=== PATIENT | female | born 1950 ===

== ENCOUNTER 2024-10-17 11:19 | Outpatient (AMB) | payer MEDICARE, SELFPAY ==
--- OUTSIDE RECORDS SUMMARY | 2024-10-17 13:02 | XMS_ITS | Clinical Summary ---
Author Organization [address] [facility] Address [address] [facility] [place] [address] Phone Care Team Providers Care Land Leveler Name Role Phone Jong Zarco MD Primary Care Provider [phone] Allergies Active Allergy Reactions Criticality Noted Date Comments Fluorescein 05/06/2024 Iodine Anaphylaxis High 07/15/2024 Other 07/27/2016 Seasonal, tree pollen, grass pollen Oxycodone 01/11/2024 Shellfish Derived 07/27/2016 Medications magnesium oxide 400 mg magnesium capsule Take by mouth 1 (one) time each day at the same time. Active BIOTIN ORAL Take 10 mg by mouth 1 (one) time each day. Active omega 9-qzf-cig-fish oil (Fish OiL) 1,000 (120-180) mg capsule Take 1 capsule (1,000 mg total) by mouth 3 (three) times a day. Active levocetirizine (XYZAL) 5 mg tablet Take 1 tablet (5 mg total) by mouth 1 (one) time each day in the evening. Active multivit-min/ir on/FA/vit K/lut (MULTIVITAMIN WOMEN 50 PLUS ORAL) Take by mouth 1 (one) time each day. Active ascorbic acid (VITAMIN C) 500 mg CR capsule Take 1 capsule (500 mg total) by mouth 1 (one) time each day. Active thiamine 100 mg tablet Take 1 tablet (100 mg total) by mouth 1 (one) time each day. Active cholecalciferol (VITAMIN D-3) 10 mcg (400 unit) tablet Take 1 tablet (400 Units total) by mouth 2 (two) times a day. Active collagen-biotin -ascorbic acid (Collagen 1500 Plus C) 500 mg-800 mcg- 50 mg capsule Take by mouth. Active Encounters Date Type Department Care Team Description 09/09/2024 1:39 PM EDT - 09/09/2024 11:59 PM EDT Hospital Encounter [facility] Neurodiagnostic [address] [place] [address] Finger numbness Discharge Disposition: Home or Self Care 09/03/2024 2:47 PM EDT - 09/03/2024 11:59 PM EDT Hospital Encounter [facility] Ultrasound [address] [place] [address] Localized edema Discharge Disposition: Home or Self Care 08/15/2024 12:37 PM EDT - 08/15/2024 11:59 PM EDT Hospital Encounter [facility] Bone Density [address] [place] [address] Age-related osteoporosis without current pathological fracture Discharge Disposition: Home or Self Care from Last 3 Months Surgical History Surgery Date Site/Laterality Comments SECTION PROCEDURE: HISTORICAL DELIVERY; COMMENT: 2 OTHER SURGICAL HISTORY 1991 PROCEDURE: HISTORY OTHER; COMMENT: abdominal tumor removed, fibrous myolipoma APPENDECTOMY PROCEDURE: HISTORICAL APPENDECTOMY; COMMENT: age 13, perforated OTHER SURGICAL HISTORY PROCEDURE: HISTORY OTHER; COMMENT: benign skin lesions removed SECTION PROCEDURE: HI DELIVERY ONLY; COMMENT: x 2 APPENDECTOMY PROCEDURE: HI APPENDECTOMY Family History Medical History Relation Name Comments Diabetes Brother Coronary artery disease Other 1 M,F Hypertension Other 2 Relation Name Status Comments Brother Father Alive cad Mother (Age 68) malnutriti on due to vomiting, IBS,intestinal blockage,cad Other 1 Other 2 Social History Tobacco Use Types Packs/Day Years Used Date Smoking Tobacco: Never Smokeless Tobacco: Never Alcohol Use Standard Drinks/Week Comments No 0 (1 standard drink = 0.6 oz pur e alcohol) Comments Unknown Sex and Gender Information Value Date Recorded Sex Assigned at Female 08/29/2024 11:10 AM EDT Legal Sex Female 4:05 AM EST Gender Identity Female 08/29/2024 11:10 AM EDT Sexual Orientation Straight 08/29/2024 11 :10 AM EDT Obstetrics History Last Filed Vital Signs Vital Sign Reading Time Taken Comments Blood Pressure 110/74 11/17/2022 2:21 PM EDT Sit ting L Arm Pulse - - Temperature - - Respiratory Rate - - Oxygen Saturation - - Inhaled Oxygen Concentration - - Weight 62.1 kg (137 lb) 03/15/2023 3:10 PM EST Height 154.9 cm (5' 1 ) 03/15/2023 3:10 PM EST Body Mass Index 25.89 03/15/2023 3:10 PM EST Plan of Treatment Upcoming Encounters Date Type Department Care Team (Late st Contact Info) Description 11/06/2024 10:30 AM EDT Appointment [facility] [address] [place] [address] 12/04/2024 1:30 PM EDT Office Visit Vascular Surgery - [place] [address] [facility] [address] [address] [place] [address] Macrina Nagy PA [address] [facility] [place] [address] Health Maintenance Due Date Last Done Comments COVID-19 Vaccine (#1) 12/12/1955 DTaP,Tdap,and Td Vaccines (1 - Tdap) 1969 Pneumococcal Vaccine: 50+ Years (1 of 2 - PCV) 1969 Zoster Vaccines (1 of 2) 10/06/2011 08/11/2011 Colorectal Cancer Screening: Colonoscopy 01/30/2022 Falls Risk Assessment 01/30/2022 Hepatitis C Screening 01/30/2022 Medicare Annual Wellness Visit 01/30/2022 Social Influencers of Health Screening 01/30/2022 Breast Cancer Screening 02/03/2024 02/03/20, 01/28/2021, 01/19/2020, Additional history exists Depression Screening 02/28/2024 Influenza Vaccine (#1) 2024 11/19/2007 Hypertension/CHF/CAD Annual BMP Blood Test 05/16/2025 05/16/2024 RSV Immunization Adult Patients (1 - 1-dose 75+ series) 2025 Cholesterol Screening (Lipid Panel) 05/16/2029 05/16/2024 Osteoporosis Screening (Bone Density Screening) 08/15/2034 08/15/2024, 02/03/2022, 10/10/2018 HIB Vaccines Aged Out No longer eligi ble based on patient's age to complete this topic HPV Vaccines Aged Out No longer eligi ble based on patient's age to complete this topic Hepatitis A Vaccines Aged Out No long er eligible based on patient's age to complete this topic Hepatitis B Vaccines Aged Out No long er eligible based on patient's age to complete this topic IPV Vaccines Aged Out No longer eligi ble based on patient's age to complete this topic MMR Vaccines Aged Out No longer eligi ble based on patient's age to complete this topic Meningococcal ACWY Vaccine Aged Out N o longer eligible based on patient's age to complete this topic Meningococcal B Vaccine Aged Out No l onger eligible based on patient's age to complete this topic RSV Immunization Patients Under 20 months Aged Out No longer eligible based on patient's age to complete this topic Varicella Vaccines Aged Out No longer eligible based on patient's age to complete this topic Procedures Procedure Name Priority Date/Time Associated Diagnosis Comments EMG 1 LIMB Routine 09/09/2024 1:44 PM EDT Finger numbness US HEAD NECK SOFT TISSUE Routine 09/03/2024 3:09 PM EDT Localized edema VON WILLEBRAND FACTOR ACTIVITY Routine 08/29/2024 9:30 AM EDT Genetic testing FACTOR V LEIDEN Routine 08/29/2024 9:30 AM EDT Genetic testing BD BONE DENSITY DXA AXIAL SKELETON Routine 08/15/2024 1:20 PM EDT Age-related osteoporosis without current pathological fracture COMPREHENSIVE METABOLIC PANEL Routine 05/16/2024 9:20 AM EDT Routine general medical examination at a health care facility LIPID PANEL WITH REFLEX TO DIRECT LDL Routine 05/16/2024 9:20 AM EDT Routine general medical examination at a health care facility DAE SCREENING DIGITAL Routine 02/02/2022 7:17 PM EST Encounter for screening mammogram for malignant neoplasm of breast from Last 3 Months or Most Recently Relevant to Health Maintenance Results * EMG one limb (09/09/2024 1:44 PM EDT) Narrative Panfilo Napoles MD - 09/09/2024 2:29 PM EDT Images from the original result were not included. Neurodiagnostic Lab [address] [place] [address] Electromyograph Report Date of service: 09/09/24 Patient Name: Petty Hair Date of : 1950 Age: 73 y.o. Gender: female Procedure Order: EMG one limb Ordering Provider: ALEX Jerome Reason for Exam: There are no answered order specific questions. Diagnosis listed on Order: Finger numbness Please see scanned report for testing details and results. Procedure Note Panfilo Napoles MD - 09/09/2024 Images from the original note were not included. Neurodiagnostic Lab [address] [place] [address] Electromyograph Report Date of service: 09/09/24 Patient Name: Petty Hair Date of : 1950 Age: 73 y.o. Gender: female Procedure Order: EMG one limb Ordering Provider: ALEX Jerome Reason for Exam: There are no answered order specific questions. Diagnosis listed on Order: Finger numbness Please see scanned report for testing details and results. EDT us Sheba JOHNSON NEUROLOGY ORDERABLES Final Resul t * US Head Neck Soft Tissue (09/03/2024 3:09 PM EDT) Anatomical Region Laterality Modality Head and Neck Ultrasound 09/06/2024 7:10 AM EDT Impressions 09/06/2024 7:16 AM EDT No obvious asymmetry of the submandibular glands. No definite ductal dilation or calcification. There is an oval hypoechoic structure abutting the posterior aspect of the left submandibular gland. Whether this represents a small mass within the gland or an adjacent lymph node is uncertain. This may be an incidental finding. The patient should be managed on the basis of the physical exam and history. No suspicious mass posterior to the left submandibular gland is demonstrated on remote CT. Follow-up in 3-6 months may be helpful -------- FINAL REPORT -------- Dictated By: Arnold Butterfield Dictated Date: 09/06/2024 07:10 ET Assigned Physician: Arnold Butterfield Reviewed and Electronically Signed By: Arnold Butterfield Signed Date: 09/06/2024 07:16 ET Workstation ID: [id number] Transcribed By: Self Edit Transcribed Date: 09/06/2024 07:10 ET Narrative 09/06/2024 7:16 AM EDT EXAMINATION: US , SOFT TISSUES NECK CLINICAL INFORMATION: Submandibular gland swelling COMPARISON: Portions of previous CT performed without contrast 02/11/07 TECHNIQUE: High-frequency linear transducer examination with attention to the area of clinical concern The examination targeted the region of the submandibular glands. The right side was examined. The left submandibular gland was examined for comparison purposes. FINDINGS: QUALITY: Adequate The right submandibular gland has an oval shape and is slightly heterogeneous. There is internal color signal. There is no calculus. No fluid collection. No suspicious mass in the right mandibular gland. The left submandibular gland has a smooth contour with an oval shape and slightly heterogeneous echotexture similar to the right side. There is no shadowing calculus or fluid collection. There is internal color signal. The color signal appear symmetric There is a homogeneous hypoechoic oval mass arising within or abutting the posterior aspect of the left submandibular gland. 09/03/24-0.8 x 0.4 x 0.7 cm Procedure Note Arnold Butterfield MD - 09/06/2024 EXAMINATION: US , SOFT TISSUES NECK CLINICAL INFORMATION: Submandibular gland swelling COMPARISON: Portions of previous CT performed without contrast 02/11/07 TECHNIQUE: High-frequency linear transducer examination with attention to the area ofclinical concern The examination targeted the region of the submandibular glands. The rightside was examined. The left submandibular gland was examined forcomparison purposes. FINDINGS: QUALITY: Adequate The right submandibular gland has an oval shape and is slightlyheterogeneous. There is internal color signal. There is no calculus. Nofluid collection. No suspicious mass in the right mandibular gland. The left submandibular gland has a smooth contour with an oval shape andslightly heterogeneous echotexture similar to the right side. There is noshadowing calculus or fluid collection. There is internal color signal. The color signal appear symmetric There is a homogeneous hypoechoic oval mass arising within or abutting theposterior aspect of the left submandibular gland. 09/03/24-0.8 x 0.4 x 0.7 cm IMPRESSION: No obvious asymmetry of the submandibular glands. No definite ductal dilation or calcification. There is an oval hypoechoic structure abutting the posterior aspect of theleft submandibular gland. Whether this represents a small mass within thegland or an adjacent lymph node is uncertain. This may be an incidentalfinding. The patient should be managed on the basis of the physical exam andhistory. No suspicious mass posterior to the left submandibular gland isdemonstrated on remote CT. Follow-up in 3-6 months may be helpful -------- FINAL REPORT -------- Dictated By: Arnold Butterfield Dictated Date: 09/06/2024 07:10 ET Assigned Physician: Arnold Butterfield Reviewed and Electronically Signed By: Aronld Butterfield Signed Date: 09/06/2024 07:16 ET Workstation ID: [id number] Transcribed By: Self Edit Transcribed Date: 09/06/2024 07:10 ET us Sheba JOHNSON IMEdin US PROCEDURES Final Result * Factor V leiden (08/29/2024 9:30 AM EDT) Factor V Leiden Mutation Negative 09/02/2024 3:11 PM EDT [facility] Comment: The pathogenic F5 Leiden variant (c.1691G>A) was NOT DETECTED. 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 This test does not rule out other mutations that may contribute to venous thrombosis. This test was performed using the marcelino(R) Factor V Test (Kody) - an in vitro diagnostic device that uses real-time quantitative Polymerase Chain Reaction (qPCR) for the detection and genotyping of the human factor V (F5) gene. The test detects the presence of the wild type (WT) F5 gene and the pathogenic c.1691G>A variant (also known as the F5 Leiden variant) in genomic DNA isolated from whole blood specimens as an aid in diagnosing patients with suspected thrombophilia. The marcelino(R) Factor V Test and the marcelino z 480 analyzer are used together for automated amplification and detection. The limit of detection for this test is 0.1 ng/uL of genomic DNA (2.5 ng/PCR reaction). Test performed at [facility], [address] [place] [address] Michelle Cook MD, PhD - Art Education Professor Blood Venous blood specimen / Unknown Venipuncture / Unknown 08/29/2024 9:30 AM EDT 08/29/2024 9:30 AM EDT Sheba Hurt [facility] MOLECULAR DIAGNOSTICS ORDERA BLES Final Result [facility] [address] [place] [address] * Von Willebrand factor activity (08/29/2024 9:30 AM EDT) [facility] von Willebrand Factor Activity Percent 170 51 - 215 % 09/03/2024 8:27 PM EDT [facility] Comment: REFERENCE INTERVAL: von Willebrand Factor, Activity (RCF) Access complete set of age- and/or gender-specific reference intervals for this test in the [facility] Online Laboratory Test Directory ([employer]). Performed By: [facility] [address] [place] [id number] Geospatial Analyst: Andrez Mike MD, PhD CLIA Number: [id number] Blood Venous blood specimen / Unknown Venipuncture / Unknown 08/29/2024 9:30 AM EDT 08/29/2024 9:30 AM EDT us Sheba JOHNSON LAB BLOOD ORDERABLES Final Resul t [place] [address] * BD Bone Density DXA Axial Skeleton (08/15/2024 1:20 PM EDT) Anatomical Region Laterality Modality Wrist, Hip, L-spine Bone Densito metry 08/16/2024 8:28 AM EDT Impressions 08/16/2024 8:29 AM EDT 1. Osteoporosis. There has been a decrease of 6.1% in bone mineral density in the lumbar spine since the prior examination of 02/02/2022. There has been a decrease of 14.2% in bone mineral density in the right femur and a decrease of 19.1% in bone mineral density in the left femur. 2. FRAX analysis yields a 10-year probability of major osteoporotic fracture of 30.0% and a 10-year probability of hip fracture of 10.8%. Code 02117 -------- FINAL REPORT -------- Dictated By: Nicolas Owusu Dictated Date: 08/16/2024 08:28 ET Assigned Physician: Nicolas wOusu Reviewed and Electronically Signed By: Nicolas Owusu Signed Date: 08/16/2024 08:29 ET Workstation ID: [id number] Transcribed By: Self Edit Transcribed Date: 08/16/2024 08:28 ET Narrative 08/16/2024 8:29 AM EDT HISTORY: The patient is a 73-year-old postmenopausal female with clinical concern for metabolic bone disease. FINDINGS: Dual energy x-ray absorptiometry of the lumbar spine and femurs is performed. The mean bone mineral density at L1-L4 (with the exclusion of L3) is 1.011 gm/cm2 which is 86% of that of young normals and 106% of that of age matched controls. This yields a T-score of -1.3 and a Z-score of 0.5 which is diagnostic of osteopenia. The mean bone mineral density of the femurs bilaterally is 0.660 gm/cm2 which is 66% of that of young normals and 83% of that of age matched controls. This yields a T-score of -2.8 and a Z-score of -1.1 which is diagnostic of osteoporosis. The T-score of the right femoral neck is -3.0 and that of the left femoral neck is -2.7 which is diagnostic of osteoporosis. Procedure Note Nicolas Owusu MD - 08/16/2024 HISTORY: The patient is a 73-year-old postmenopausal female with clinicalconcern for metabolic bone disease. FINDINGS: Dual energy x-ray absorptiometry of the lumbar spine and femursis performed. The mean bone mineral density at L1-L4 (with the exclusionof L3) is 1.011 gm/cm2 which is 86% of that of young normals and 106% ofthat of age matched controls. This yields a T-score of -1.3 and a Z-scoreof 0.5 which is diagnostic of osteopenia. The mean bone mineral density of the femurs bilaterally is 0.660 gm/xz6eqlyr is 66% of that of young normals and 83% of that of age matchedcontrols. This yields a T-score of -2.8 and a Z-score of -1.1 which isdiagnostic of osteoporosis. The T- score of the right femoral neck is -3.0and that of the left femoral neck is -2.7 which is diagnostic ofosteoporosis. IMPRESSION: 1. Osteoporosis. There has been a decrease of 6.1% in bone mineraldensity in the lumbar spine since the prior examination of 02/02/2022.There has been a decrease of 14.2% in bone mineral density in the rightfemur and a decrease of 19.1% in bone mineral density in the left femur. 2. FRAX analysis yields a 10-year probability of major osteoporoticfracture of 30.0% and a 10-year probability of hip fracture of 10.8%. Code 16932 -------- FINAL REPORT -------- Dictated By: Nicolas Owusu Dictated Date: 08/16/2024 08:28 ET Assigned Physician: Nicolas Owusu Reviewed and Electronically Signed By: Nicolas Owusu Signed Date: 08/16/2024 08:29 ET Workstation ID: [id number] Transcribed By: Self Edit Transcribed Date: 08/16/2024 08:28 ET Sheba JOHNSON IMG DXA PROCEDURES Final Result * (ABNORMAL) Lipid panel with reflex to direct LDL (05/16/2024 9:20 AM EDT) Cholesterol 223(H) 0 - 200 mg/dL LAB CHEMISTRY METHOD 05/16/2024 2:19 PM EDT [facility] Triglycerides 58 0 - 150 mg/dL LAB CHEMISTRY METHOD 05/16/2024 2:19 PM EDT [facility] HDL 93 >=40 mg/dL LAB CHEMISTRY METHOD 05/16/2024 2:19 PM EDT [facility] LDL Calculated 118(H) 0 - 100 mg/dL LAB CHEMISTRY METHOD 05/16/2024 2:19 PM EDT [facility] VLDL Cholesterol Fredrick 11.6 mg/dL LAB CHEMISTRY METHOD 05/16/2024 2:19 PM EDT [facility] Non HDL Chol. (LDL+VLDL) 130 <145 mg/dL LAB CHEMISTRY METHOD 05/16/2024 2:19 PM EDT [facility] Chol/HDL Ratio 2.4 0.0 - 4.4 LAB CHEMISTRY METHOD 05/16/2024 2:19 PM EDT [facility] Blood Venous blood specimen / Unknown Venipuncture / Unknown 05/16/2024 9:20 AM EDT 05/16/2024 9:20 AM EDT us Jong Zarco MD LAB BLOOD ORDERABLES Final Resul t [facility] [address] [place] [address], * Comprehensive metabolic panel (05/16/2024 9:20 AM EDT) Sodium 138 133 - 145 mmol/L LAB CHEMISTRY METHOD 05/16/2024 2:14 PM [facility] Potassium 4.6 3.5 - 5.5 mmol/L LAB CHEMISTRY METHOD 05/16/2024 2:14 PM [facility] Chloride 104 96 - 110 mmol/L LAB CHEMISTRY METHOD 05/16/2024 2:14 PM [facility] CO2 28 21 - 32 mmol/L LAB CHEMISTRY METHOD 05/16/2024 2:14 PM [facility] Anion Gap 6 3 - 11 LAB CHEMISTRY METHOD 05/16/2024 2:14 PM [facility] Glucose 99 70 - 100 mg/dL LAB CHEMISTRY METHOD 05/16/2024 2:14 PM [facility] BUN 16 5 - 25 mg/dL LAB CHEMISTRY METHOD 05/16/2024 2:14 PM [facility] Creatinine 0.56 0.50 - 1.10 mg/dL LAB CHEMISTRY METHOD 05/16/2024 2:14 PM [facility] eGFR 97 >=60 mL/min/1. 73m2 LAB CHEMISTRY METHOD 05/16/2024 2:14 PM [facility] Comment:Calculation based on the Chronic Kidney Disease Epidemiology Collaboration (CKD-EPI) equation refit without adjustment for race. BUN/Creatinine Ratio 28.6 LAB CHEMISTRY METHOD 05/16/2024 2:14 PM [facility] Calcium 9.6 8.5 - 10.5 mg/dL LAB CHEMISTRY METHOD 05/16/2024 2:14 PM [facility] AST (SGOT) 14 10 - 42 unit/L LAB CHEMISTRY METHOD 05/16/2024 2:14 PM [facility] ALT (SGPT) 18 10 - 60 unit/L LAB CHEMISTRY METHOD 05/16/2024 2:14 PM EDT [facility] Alkaline Phosphatase 82 42 - 121 unit/L LAB CHEMISTRY METHOD 05/16/2024 2:14 PM EDT [facility] Total Protein 7.3 6.0 - 8.0 g/dL LAB CHEMISTRY METHOD 05/16/2024 2:14 PM EDT [facility] Albumin 3.9 3.2 - 5.0 g/dL LAB CHEMISTRY METHOD 05/16/2024 2:14 PM EDT [facility] Total Bilirubin 0.5 0.0 - 1.4 mg/dL LAB CHEMISTRY METHOD 05/16/2024 2:14 PM EDT [facility] Blood Venous blood specimen / Unknown Venipuncture / Unknown 05/16/2024 9:20 AM EDT 05/16/2024 9:20 AM EDT us Jong Zarco MD LAB BLOOD ORDERABLES Final Resul t [facility] [address] [place] [address], * DAE SCREENING DIGITAL (02/02/2022 7:17 PM EST) Anatomical Region Laterality Modality Mammography 02/02/2022 11:1 8 AM EST Narrative 02/02/2022 7:17 PM EST [facility] Diagnostic Imaging Department [address] [place] [address] Patient: LAXMIPETTY D.O.B./Age/Sex: 1950 - 71 - F Unit#: [id number] Location/Status: SPDIMAM/REG CLI Mnem[facility] Physician: ANIL CRAIN MD Dae Screening Digital - 02/02/221153 History: Bilateral breast cancer screening. Technique: Bilateral digital mammography. Conventional CC and MLO projections with tomosynthesis MLO views and computer-aided detection Comparison: [facility] and outside mammography 01/28/2021, dating back to 01/05/2010. Findings: Breast tissue is mostly fatty replaced (category A density) (as calculated by Network Intelligencepara software). There is no suspicious group of microcalcification, no suspicious mass, architectural distortion or suspicious change in breast tissue density. Impression: No evidence of malignancy. BIRADS category 1, negative examination, 3341F [id number], [id number] Note: Patient information entered into a reminder system with a target due date for the next mammogram; PQRI II 7031Q Dictating Physician: CHICHO SALGUERO MD Electronically Signed by: CHICHO SALGUERO MD Dic Date/Time: 02/02/221913 Sign date/Time: 02/02/221916 Procedure Note Chicho Salguero MD - 03/31/2023 [facility] Diagnostic Imaging Department [address] [place] [id number] Patient: PETTY HAIR Hannah /Age/Sex: 1950 - 71 - F Unit#: [id number] Location/Status: SPDIMAM/REG CLI Mnemonic/Ordering Site: [facility] Ordering Physician: ANIL CRAIN MD Dae Screening Digital - 02/02/22 - 1154 History: Bilateral breast cancer screening. Technique: Bilateral digital mammography. Conventional CC and MLOprojections with tomosynthesis MLO views and computer-aided detection Comparison: [facility] and outside mammography 01/28/2021,dating back to 01/05/2010. Findings: Breast tissue is mostly fatty replaced (category A density) (ascalculated by [employer] software). There is no suspicious group of microcalcification, no suspicious mass, architectural distortion or suspicious change in breast tissue density. Impression: No evidence of malignancy. BIRADS category 1, negative examination, 3341F [id number], [id number] Note: Patient information entered into a reminder system with a targetdue date for the next mammogram; PQRI II 7025F Dictating Physician: CHICHO SALGUERO MD Electronically Signed by: CHICHO SALGUERO MD Dic Date/Time: 02/02/221913 Sign date/Time: 02/02/221916 us Anil Crain MD IMG BI PROCEDURES Final Result from Last 3 Months or Most Recently Relevant to Health Maintenance Insurance [employer] Care Teams Land Leveler Relationship Specialty Start Date End Date Jong Zarco MD [address] [place] [address] PCP - General 11/11/22
--- OUTSIDE RECORDS SUMMARY | 2024-10-17 13:02 | XMS_ITS ---
Author Name [facility] Organization Unknown Encounters Encounter Type Encounter Reason Primary Diagnosis Location Date Ambulatory [facility] 12/26/2023 Care Team Organization Name Specialty Phone Email Start Date End Da te [facility] 06/22/2024 [facility] GURPREET SILVA Primary Care 09/14/2023 06/12/2024 [facility] Estela Howard MD Primary Care 07/04/2022 06/12/2024
--- OUTSIDE RECORDS SUMMARY | 2024-10-17 13:03 | XMS_ITS | Continuity of Care Document ---
Author Organization [facility] [address] [place] [address] Phone [phone] Care Team Providers Care Shoeblack Name Role Phone Jan Rivera M.D. Care Team Information Re ceiver [phone] Jong Zarco M.D. Care Team Information Windmill Technician [phone] Problems Active Problems Provider Date Hypothyroidism Alfredo Onofre M.D. Onset: Major depressive disorder Alfredo Onofre M.D. Onset: 08/19/2022 Rosacea Alfredo Onofre M.D. Onset: Irritable bowel syndrome Alfredo Onofre M.D. O nset: 08/19/2022 History of malignant neoplasm of thyroid Alfredo rg M.D. Onset: 08/19/2022 Alopecia Alfredo Onofre M.D. Onset: Osteoporosis Alfredo Onofre M.D. Onset: Thyroid nodule Alfredo Onofre M.D. Onset: Non-toxic multinodular goiter Soto Gonzalez Onset: 06/12/2023 Osteopenia Alfredo Onofre M.D. Onset: Social History Type Date Description Comments Sex Female Sex Unknown Tobacco Use Start: Unknown Never Smoked Cigarettes ETOH Use Never used alcohol Allergies and adverse reactions Description No Known Drug Allergies Medications Active Medications SIG Qnty Indications Ordering Provider Date Vitamin [id number] (5000 Ut) Capsules Unknown [id number] Tablets Unknown Vital Signs Date Vital Result Comment 06/12/2024 11:25am BP Systolic 142 mmHg BP Diastolic 88 mmHg Heart Rate 68 /min Height 61 inches 5'1 Weight 144.12 lb BMI (Body Mass Index) 27.2 kg/m2 Results Test Acquired Date Facility Test Result H/L Range N ote TSH With Reflex To FT4 10/18/2022 [facility] TSH With Reflex To FT4 3.84 uIU/mL (0.4-4.2) Medical Devices Description No Information Available Encounters Type Date Location Provider Dx Diagnosis Office Visit 06/12/2024 11:15a Main Office ALEX Bower Z85.850 Personal hist ory of malignant neoplasm of thyroid E04.1 Nontoxic single thyr oid nodule Assessments Date Code Description Provider 06/12/2024 Z85.850 Personal history of malignant neoplasm of thyroid ALEX Bower 06/12/2024 E04.1 Thyroid nodule ALEX Loza Plan of Treatment Future Appointment(s):* 12/16/2024 10:00 am - Mary Zimmerman NP at Main Office 06/12/2024 - ALEX Bower* Z85.850 Personal history of malignant neoplasm of thyroid * E04.1 Thyroid nodule Functional Status Description No Information Available Mental Status Description No Information Available Referrals Refer to Reason for Referral Status Appt Cinda Farrell PA Created [address] [place] [address] [address] [place] [id number] [phone] Alfredo Onofre M.D. Created [address] [place] [address] Drive [address] [place] [id number] [phone]
--- OUTSIDE RECORDS SUMMARY | 2024-10-17 13:03 | XMS_ITS | Patient Health Record ---
Author Organization [facility] Address [address] [place] [address] Care Team Providers Care Construction Supervisor/Carpenter Name Role Phone GURPREET SILVA Primary Care Provider [phone] LEIGHANNCHARLI Unavailable [phone] Allergies Allergen (clinical drug ingredient) Drug/Non Drug Allergy documented on EMR Reaction Allergy Type Onset Date Status grass pollen (uncoded) itchy eyes sneezing runny nose Allergy Active tree polle (uncoded) itchy eyes, sneezing, runny nose Allergy Active Iodine Anaphylactic shock Drug Allergy Active Shellfish (FN) Shellfish-derived Products flushed, hot Drug Allergy Active Results Component Value Reference Range Notes VON WILLEBRAND FACTOR ACTIVI TY Reviewed date:09/04/2024 08:27:33 AM Interpretation: Performing Lab: Notes/Report: von Willebrand Factor Activity Percent 170 51-215 % REFERENCE INTERVAL: von Willebrand Factor, Activity (RCF) Access complete set of age- and/or gender-specific reference intervals for this test in the [facility] Test Directory ([employer]). Performed By: [facility] [address] [place] [id number] Dot Net Architect: Andrez Mike MD, PhD CLIA Number: [id number] FACTOR V LEIDEN Reviewed date:09/05/2024 03:26:59 PM Interpretation: Performing Lab: Notes/Report: Factor V Leiden Mutation Negative The pathogenic F5 Leiden variant (c.1691G>A) was [...] DNA (2.5 ng/PCR reaction). Test performed at [facility], [facility] [place] [address] Michelle Cook MD, PhD - Drink Box Mechanic BD BONE DENSITY DXA AXIAL SK [facility] Reviewed date:08/16/2024 01:14:54 PM Interpretation: Performing Lab: Notes/Report: Note See Note [facility], a member of [employer] Patient Name: PETTY HAIR Date of : 1950 Reason for Exam: OSTEOPOROSIS Exam Date: 08/15/2024 [id number] EST Report Status: Final Ordering Provider: CHARLI LAWTON PCP: GURPREET SILVA HISTORY: The patient is a 73-year-old postmenopausal female with clinical concern for metabolic bone disease. FINDINGS: Dual energ y x-ray absorptiometry of the lumbar spine and femurs is performed. The mean bone mineral density at L1-L4 (with the exclusion of L3) is 1.011 gm/cm2 which is 86% of that of young normals and 106% of that of age matched controls. This yields a T-score of -1.3 and a Z-score of 0.5 which is diagnostic of osteopenia. The mean bone minera l density of the femurs bilaterally is 0.660 gm/cm2 which is 66% of that of young normals and 83% of that of age matched controls. This yields a T-score of -2.8 and a Z-score of -1.1 which is diagnostic of osteoporosis. The T-score of the right femoral neck is -3.0 and that of the left femoral neck is -2.7 which is diagnostic of osteoporosis. IMPRESSION: 1. Osteoporosis. Th ere has been a decrease of 6.1% in bone mineral density in the lumbar spine since the prior examination of 02/02/2022. There has been a decrease of 14.2% in bone mineral density in the right femur and a decrease of 19.1% in bone mineral density in the left femur. 2. FRAX analysis jeff lds a 10-year probability of major osteoporotic fracture of 30.0% and a 10-year probability of hip fracture of 10.8%. Code 82650 -------- FINAL REPOR T -------- Dictated By: Nicolas Owusu Dictated Date: 08/16/2024 08:28 ET Assigned Physician: Nicolas Owusu Reviewed and Electronically Signed By: Nicolas Owusu Signed Date: 025 08:29 ET Workstation ID: [id number] Transcribed By: Self Edit Transcribed Date: 08/16/2024 08:28 ET US HEAD NECK SOFT TISSUE Reviewed date:06/24/2024 02:25:13 PM Interpretation: Performing Lab: Notes/Report: Note See Note [facility], a member of [employer] Patient Name: PETTY HAIR Date of : 1950 Reason for Exam: malignant neoplasm Exam Date: 06/19/2024 [id number] EST Report Status: Final Ordering Provider: JOSE LUIS FRAZIER PCP: GURPREET SILVA HISTORY: Malignant neoplasm of thyroid gland. Status post partial (right) thyroidectomy. Surveillance imaging. COMPARISON: 06/02/23, 12/07/20 FINDINGS: High resolution real-time imaging of the thyroid gland was performed. RIGHT LOBE: The right thyroid lo be is absent. No abnormal mass or fluid collection is seen within the thyroidectomy bed. LEFT LOBE: The left lobe is sma ll, measuring 2.9 cm in length by 0.9 cm in depth by 1.3 cm in width. A 7 x 4 x 4 mm circumscribed solid, isoechoic nodule is again seen in the interpolar area, unchanged (TI-RADS 3). A 7 x 6 x 6 mm hypoechoic nodule with indistinct margins and a few small calcifications is unchanged in the interpolar left lobe (TI-RADS 5). ISTHMUS: The isthmus is fabián l in thickness, measuring 0.2 cm. IMPRESSION: 1. Stable subcentime ter TI-RADS 3 and TI-RADS 5 nodules in the left lobe, for which continued follow-up is recommended. 2. Stable right thyroidectomy sequela. [place] ([id number]) -------- FINAL REPOR T -------- Dictated By: Unique Pringle i Dictated Date: 06/19/2024 13:48 ET Assigned Physician: Unique Garcia Reviewed and Electronically Signed By: Unique Garcia Signed Date: 13:54 ET Workstation ID: [id number] Transcribed By: Self Edit Transcribed Date: 06/19/2024 13:48 ET VITAMIN D, 25-HYDROXY Reviewed date:10/25/2023 11:53:12 AM Interpretation: Performing Lab: Notes/Report: [facility], a member of [address] [address] Drink Box Mechanic - Shy Thomas MD VITAMIN D, 25-HYDROXY 38 30-80 ng/mL LIPID PROFILE Reviewed date:10/27/2023 11:21:32 AM Interpretation: Performing Lab: Notes/Report: Original Ordering Provider: GURPREET SILVA MD CHOLESTEROL 224 0-200 mg/dL TRIGLYCERIDES 75 0-150 mg/dL HDL CHOLESTEROL 95 >40 mg/dL LDL CALCULATED 114 0-100 mg/dL TC-HDLC RATIO 2.4 0-4.4 mg/dL EKG Reviewed date:06/25/2024 01:07:46 PM Interpretation: Performing Lab: Notes/Report: ECGDiastolicBP 80 ECGHr 60 ECGPRInterval 172 ECGPWaveAxis 47 ECGQRSDuration 88 ECGQrsWaveAxis -8 ECGQTcInterval 444 ECGQTInterval 444 ECGSystolicBP 124 ECGTWaveAxis 22 RR_DiastolicBP 0 RR_MaxRRInterval 0 RR_MeanHR 0 RR_MeanRRInterval 0 RR_MinRRInterval 0 RR_NumBeats 0 RR_NumNormalBeats 0 RR_SystolicBP 0 THYROID STIMULATING HORMONE WITH REFLEX TO FREE T4 AND FREE T3 Reviewed date:07/18/2024 09:09:31 AM Interpretation: Performing Lab: Notes/Report: TSH 2.27 0.40-4.00 mcIU/mL COMPREHENSIVE METABOLIC PANE L Reviewed date:05/17/2024 11:50:13 AM Interpretation: Performing Lab: Notes/Report: Sodium 138 133-145 mmol/L Potassium 4.6 3.5-5.5 mmol/L Chloride 104 96-110 mmol/L CO2 28 21-32 mmol/L Anion Gap 6 3-11 Glucose 99 70-100 mg/dL BUN 16 5-25 mg/dL Creatinine 0.56 0.50-1.10 mg/dL eGFR 97 >=60 mL/min/1.73m2 Calculati on based on the Chronic Kidney Disease Epidemiology Collaboration (CKD-EPI) equation refit without adjustment for race. BUN/Creatinine Ratio 28.6 Calcium 9.6 8.5-10.5 mg/dL AST (SGOT) 14 10-42 unit/L ALT (SGPT) 18 10-60 unit/L Alkaline Phosphatase 82 42-121 unit/L Total Protein 7.3 6.0-8.0 g/dL Albumin 3.9 3.2-5.0 g/dL Total Bilirubin 0.5 0.0-1.4 mg/dL LIPID PANEL WITH REFLEX TO D IRECT LDL Reviewed date:05/17/2024 11:49:35 AM Interpretation: Performing Lab: Notes/Report: Cholesterol 223 0-200 mg/dL Triglycerides 58 0-150 mg/dL HDL 93 >=40 mg/dL LDL Calculated 118 0-100 mg/dL VLDL Cholesterol Fredrick 11.6 Non HDL Chol. (LDL+VLDL) 130 <145 mg/dL Chol/HDL Ratio 2.4 0.0-4.4 CBC WITH AUTO DIFFERENTIAL Reviewed date:06/26/2024 08:35:09 AM Interpretation: Performing Lab: Notes/Report: WBC 5.5 4.8-10.8 K/mcL RBC 4.80 3.80-4.80 M/mcL Hemoglobin 14.6 11.5-16.0 g/dL Hematocrit 41.9 35.0-47.0 % MCV 88.2 79.0-98.0 FL MCH 30.7 27.0-32.0 pcg MCHC 34.8 32.0-37.0 g/dL RDW 14.2 11.0-15.0 % Platelets 229 130-400 K/mcL MPV 11.9 7.0-11.0 FL NRBC 0.0 <1.0 % NRBC Absolute 0.00 <0.10 K/mcL Neutrophils Relative 61.0 Lymphocytes Relative 28.2 Monocytes Relative 7.9 Eosinophils Relative 1.6 Basophils Relative 1.1 Immature Granulocytes Relative 0.2 Neutrophils Absolute 3.34 1.50-7.00 K/mcL Lymphocytes Absolute 1.54 1.00-5.00 K/mcL Monocytes Absolute 0.43 0.20-1.00 K/mcL Eosinophils Absolute 0.09 0.00-0.50 K/mcL Basophils Absolute 0.06 0.00-0.20 K/mcL Immature Granulocytes Absolute 0.01 0.00-0.03 K/mcL US HEAD NECK SOFT TISSUE Reviewed date:09/06/2024 12:10:09 PM Interpretation: Performing Lab: Notes/Report: Note See Note [facility], a member of [employer] Patient Name: PETTY HAIR Date of : 1950 Reason for Exam: submandibular gland swelling Exam Date: 09/03/2024 [id number] EST Report Status: Final Ordering Provider: CHARLI LAWTON PCP: GURPREET SILVA EXAMINATION: US , SO FT TISSUES NECK CLINICAL INFORMATION: Submandibular gland swelling COMPARISON: Portions of previous CT performed without contrast 02/11/07 TECHNIQUE: High-frequency linea r transducer examination with attention to the area of clinical concern The examination targeted the region of the submandibular glands. The right side was examined. The left submandibular gland was examined for comparison purposes. FINDINGS: QUALITY: Adequate The right submandibu lar gland has an oval shape and is slightly heterogeneous. There is internal color signal. There is no calculus. No fluid collection. No suspicious mass i n the right mandibular gland. The left submandibul ar gland has a smooth contour with an oval shape and slightly heterogeneous echotexture similar to the right side. There is no shadowing calculus or fluid collection. There is internal color signal. The color signal debra ear symmetric There is a homogeneo us hypoechoic oval mass arising within or abutting the posterior aspect of the left submandibular gland. 09/03/24-0.8 x 0.4 x 0 .7 cm IMPRESSION: No obvious asymmetry of the submandibular glands. No definite ductal dilation or calcification. There is an oval hypoechoic structure abutting the posterior aspect of the left submandibular gland. Whether this represents a small mass within the gland or an adjacent lymph node is uncertain. This may be an incidental finding. The patient should b e managed on the basis of the physical exam and history. No suspicious mass posterior to the left submandibular gland is demonstrated on remote CT. Follow-up in 3-6 mon ths may be helpful -------- FINAL REPOR T -------- Dictated By: Arnold Ramirez Dictated Date: 09/06/2024 07:10 ET Assigned Physician: Arnold Butterfield Reviewed and Electronically Signed By: Arnold Butterfield Signed Date: 025 07:16 ET Workstation ID: [id number] Transcribed By: Self Edit Transcribed Date: 09/06/2024 07:10 ET Reason For Referral Reason [facility] 1 Colon cancer screeni ng (Z12.11) Referral Organization [facility] [address] Referring Provider First Name CHARLI Referring Provider Last Name LEIGHANN Referring Provider Speciality Internal edicine Referred Provider Jaret RAMIREZ Referred Provider Specialty Gastroentero logy General Notes AGUILAR WILLOUGHBY 0 07/05/2024 09:18:02 AM >[address] [place] [address], [phone], [phone] Clinical Notes patient does not wan t colonosscopy Referral Priority Routine Reason [facility] Vascular Diagnosis 1 Stricture of artery (I77.1) Referral Organization [facility] [address] Referring Provider First Name CHARLI Referring Provider Last Name LEIGHANN Referring Provider Speciality Internal edicine Referred Provider Specialty Vascular Shekhar romulo General Notes AGUILAR WILLOUGHBY 0 08/12/2024 09:56:06 AM >information sent over to [facility] with form and carotid, p- , [phone] Clinical Notes Trisha Adkins 01:58:11 PM > refaxedJed Redena 08/26/2024 03:47:27 PM > Not contracted with insurance, Shelly Duncan 08/28/2024 12:02:02 PM > [facility] , [phone], f. [phone], Trisha Adkins 09/05/2024 12:57:34 PM > The office confirmed receipt of referral. They will be calling the patient today for scheduling Referral Priority Routine Reason [facility] Diagnosis 1 Ventricular tachycar rebecca (I47.20) Diagnosis 2 Atrial tachycardia ( I47.19) Diagnosis 3 Irregular heartbeat (I49.9) Referral Organization [facility] [address] Referring Provider First Name CHARLI Referring Provider Last Name LEIGHANN Referring Provider Speciality Internal M edicine Referred Provider Specialty Cardiology General Notes AGUILAR WILLOUGHBY 0 09/09/2024 04:53:16 PM >Information with Holter faxed over to [facility] , , Referral Priority Routine Reason [facility] Diagnosis 1 Right carpal tunnel syndrome (G56.01) Referral Organization [facility] Referring Provider First Name CHARLI Referring Provider Last Name LEIGHANN Referring Provider Speciality Internal edicine Referred Provider Specialty Orthopedic S urgery General Notes FARTUN AGUILAR 0 09/11/2024 03:59:32 PM >Information faxed over to [facility] with EMG and Forms, p- , [phone] Referral Priority Routine Medications Medication SIG (Take, Route, Frequency, Duration) Notes Start Date End Date Status Vitamin D3 10 MCG (400 UNIT) 2 tablets Orally Once a day Active Fish Oil 1000 MG 1 capsule Orally Thr ee times a day Active CoQ-10 Active Collagen 1500/C 500-50-0.8 MG as directed Orally Active Electrolyte-56 Activ e Biotin 10 MG 1 tablet Orally Once a day Active Multi Complete - as directed Orally Active Xyzal Allergy 24HR 5 MG 1 tablet in the evening Orally Once a day 06/25/2024 Active Vitamin B1 100 MG 1 tablet Orally Once a day Active Vitamin C 500 MG as directed Orally Active Vitamin K2 Active Turmeric-Cheri Acti ve Magnesium 400 MG as directed Orally 06/25/2024 Active Social History Tobacco Use: Social History Observation Description Date Details (start date - stop date) Never Smoker NA - NA Tobacco Use/Smoking Question Answer Notes Are you a nonsmoker Section Notes: 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, from 9pm-9am Tob: None ETOH: Rare 2 boys retired 2 boys 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, from 9pm-9am Tob: None ETOH: Rare 2 boys 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, from 9pm-9am Tob: None ETOH: Rare 2 boys 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, from 9pm-9am Tob: None ETOH: Rare 2 boys 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, from 9pm-9am Tob: None ETOH: Rare 2 boys retired 2 boys 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, from 9pm-9am Tob: None ETOH: Rare 2 boys Problems Problem Type SNOMED Code ICD Code Onset Dates Problem Status W/U Status Risk Notes Problem Hypothyroidism (06935721) Hypothyroidism, unspecified (E03.9) Active confirmed Problem Retinal telangiectasia (60293635) Retinal telangiectasis, 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 Problem Stricture of artery (77100766) Stricture of artery (I77.1) Active confirmed Problem Family history of ischemic heart disease (895721231) Family history of ischemic heart disease and other diseases of the circulatory system (Z82.49) Active confirmed Problem Hyperlipidaemia (74390751) Hyperlipidemia, unspecified hyperlipidemia type (E78.5) Active confirmed Problem Hemorrhoids without complication (03302397) Hemorrhoids, unspecified hemorrhoid type (K64.9) Active confirmed Problem Rosacea (584087462) Rosacea (L71.9) Active confirmed Problem Vitamin D deficiency (67564629) Vitamin D deficiency (E55.9) Active confirmed Problem Age-related osteoporosis (609514086) Osteoporosis, unspecified osteoporosis type, unspecified pathological fracture presence (M81.0) Active confirmed Problem Numbness (91063367) Numbness (R20.0) Active confirmed Problem Obesity (148151428) Obesity (BMI 30-39.9) (E66.9) Active confirmed Problem Incontinence of feces (80953316) Incontinence of feces, unspecified fecal incontinence type (R15.9) Active confirmed Problem Cardiac arrhythmia (403489783) Irregular heartbeat (I49.9) Active confirmed Problem Essential hypertension (08790309) High blood pressure determined by examination (I10) Active confirmed Problem Lipid screening (836684007) Lipid screening (Z13.220) Active confirmed Problem Osteoporosis (74476905) Osteoporosis (M81.0) Active confirmed Problem Carpal tunnel syndrome (43512284) Right carpal tunnel syndrome (G56.01) Active confirmed Problem Dizzy spells (191285031) Dizzy spells (R42) Active confirmed Problem Skin sensation disturbance (86413802) Finger numbness (R20.0) Active confirmed Vital Signs Heart Rate 69 /min 09/25/2024 Oximetry 98 % 09/25/2024 Blood pressure diastolic 78 mm Hg 09/25/2024 Height 61 in 09/25/2024 Blood pressure systolic 128 mm Hg 09/25/2024 Weight 133.4 lbs 09/25/2024 BMI 25.2 kg/m2 09/25/2024 Encounters Encounter Location Date Provider Diagnosis [address] [address] 10/25/2023 GURPREET SILVA High blood pressure determined by examination I10 ; Hypothyroidism, unspecified E03.9 and Osteopenia of multiple sites M85.[address] [address] 06/25/2024 CHARLI LEIGHANN Encounter for genera l adult medical examination without abnormal findings Z00.00 ; Encounter for screening for depression Z13.31 ; Encounter for screening for other disorder Z13.89 ; Obesity (BMI 30-39.9) E66.9 ; Other specified counseling Z71.89 ; Retinal telangiectasis, unspecified eye H35.079 ; Vitamin D deficiency E55.9 ; Rosacea L71.9 ; Hypothyroidism, unspecified E03.9 and Headache, unspecified R51.[address] [address] 08/28/2024 CHARLI LEIGHANN Obesity (BMI 30-39.9 ) E66.9 ; Palpitations R00.2 ; Hypothyroidism, unspecified E03.9 ; Vitamin D deficiency E55.9 ; Rosacea L71.9 ; Headache, unspecified R51.9 ; Submandibular gland swelling R60.0 ; Genetic testing Z13.79 and Encounter for examination of blood pressure without abnormal findings Z01.[address] [address] 09/25/2024 CHARLI LEIGHANN Palpitations R00.2 ; Obesity (BMI 30-39.9) E66.9 ; Hypothyroidism, unspecified E03.9 ; Vitamin D deficiency E55.9 ; Rosacea L71.9 ; Headache, unspecified R51.9 ; Submandibular gland swelling R60.0 ; Genetic testing Z13.79 and Encounter for examination of blood pressure without abnormal findings Z01.30 [facility] [address] [place] [address] 01/09/2024 GURPREET SILVA [facility] [address] [place] [address] 02/06/2024 GURPREET SILVA [facility] [address] [place] [address] 04/23/2024 GURPREET SILVA [facility] [address] [place] [address] 05/31/2024 GURPREET SILVA [facility] [address] [address] 06/25/2024 CHARLI LEIGHANN Screening mammogram for breast cancer Z12.31 [facility] [address] [address] 06/25/2024 CHARLI LEIGHANN [facility] [address] [place] [address] 07/08/2024 GURPREET SILVA [facility] [address] [place] [address] 07/25/2024 GURPREET SILVA Colon cancer screeni Z12.[address] [place] [address] 07/25/2024 CHARLI LEIGHANN [facility] [address] [place] [address] 07/26/2024 CHARLI LEIGHANN [facility] [address] [place] [address] 08/26/2024 CHARLI LEIGHANN [facility] [address] [address] 08/26/2024 GURPREET SILVA [facility] [address] [place] [address] 09/04/2024 GURPREET SILVA [facility] [address] [facility] [address] [place] [address] 09/06/2024 CHARLI LEIGHANN [facility] [address] [place] [address] 09/09/2024 CHARLI LAWTON [facility] [address] [place] [address] 09/11/2024 CHARLI LAWTON Assessments Encounter Date Diagnosis (ICD Code) Assessment Notes Treatment Notes Treatment Clinical Notes Section Notes 10/25/2023 High blood pressure determined by examination (ICD-10 - I10) Patient is a retired cert occupational therapy asst, lives at home with his , has 2 boys. 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 #Rectal incontinence/nonblee ding hemorrhoids, chronic, progressive since 2022, has never been evaluated by GI/was too embarrassed to bring it to her primary care in the past. She was evaluated by GI in 2019 for, as per note she has anal sphincter incompetence and has been recommended further testing through defecpgraphy. #Osteopenia, discussed weightbearing workouts #Reports whitecoat hypertension/will recheck blood pressure in upcoming appointments. #Rosacea 06/25/2024 Encounter for general adult medical examination without abnormal findings (ICD-10 - Z00.00) Petty is a pleasant 73-year-old female with a past medical history of osteopenia, hypothyroidism, retinal telangiectasias, cataract extraction, fecal smearing and rosacea who presents to the office today for Medicare wellness visit #Hypothyroidism: Patient currently following with endocrinology, patient did have parathyroidectomy completed in 2007. Patient did have a ultrasound of her thyroid completed recently on 06/19/2024 that states stable subcentimeter TI-RADS 3 and TI-RADS 5 nodules in the left lobe, for which continued follow-up is recommended. Stable right thyroidectomy sequela. #Palpable lymph nodes: Nonpalpable on exam today, will recheck at follow-up patient is to call the office if she feels as though the lymph nodes are starting to become very palpable #Palpitations: Patient states that she intermittently experiences heart palpitations EKG in office today demonstrates normal sinus rhythm. Anterior septal infarct undetermined. #Dizzy spells: Patient states that she felt as though these dizzy spells are related to the mushroom yogurt she was consuming, advised to discontinue this #Right hand numbness: Obtaining right upper extremity EMG for suspected carpal tunnel or nerve entrapment. #Health maintenance: Declines colonoscopies, overdue on mammogram, overdue for bone density, placed today. Patient declines an EpiPen and declines all vaccinations. Medicare Wellness Patient is here for a Medicare wellness visit. Complete paperwork was reviewed and updated and has been filed and scan. Depression screen completed. Alcohol AUDIT SCREEN completed. Obesity screen completed. Cardiovascular risk stratification screen completed. Cognition assessed and within reasonable limits Fall risk assessed Discussed healthcare proxy. Discussed [place] order for life sustaining treatment, end-of-life issues, intubation and resuscitation dialysis artificial nutrition and hydration is appropriate. All questions have been answered to patient's satisfaction. Patient verbalized understanding of diagnosis and treatments explained. Advised to call sooner prior to next visit it any questions/concerns arise. Case discussed with Lupe LLOYD who reviewed the assessment and plan. Chart, medications, labs, vital signs reviewed. Dictation was accomplished with the use of [employer] voice recognition software, which is prone to medical misidentifications and grammatical errors. This are unintentional and the practitioner does try to identify and correct these, but some could still be present. Please do not hesitate to contact practitioner for clarification. 06/25/2024 Encounter for screening for depression (ICD-10 - Z13.31) Petty is a pleasant 73-year-old female with a past medical history of osteopenia, hypothyroidism, retinal telangiectasias, cataract extraction, fecal smearing and rosacea who presents to the office today for Medicare wellness visit #Hypothyroidism: Patient currently following with endocrinology, patient did have parathyroidectomy completed in 2007. Patient did have a ultrasound of her thyroid completed recently on 06/19/2024 that states stable subcentimeter TI-RADS 3 and TI-RADS 5 nodules in the left lobe, for which continued follow-up is recommended. Stable right thyroidectomy sequela. #Palpable lymph nodes: Nonpalpable on exam today, will recheck at follow-up patient is to call the office if she feels as though the lymph nodes are starting to become very palpable #Palpitations: Patient states that she intermittently experiences heart palpitations EKG in office today demonstrates normal sinus rhythm. Anterior septal infarct undetermined. #Dizzy spells: Patient states that she felt as though these dizzy spells are related to the mushroom yogurt she was consuming, advised to discontinue this #Right hand numbness: Obtaining right upper extremity EMG for suspected carpal tunnel or nerve entrapment. #Health maintenance: Declines colonoscopies, overdue on mammogram, overdue for bone density, placed today. Patient declines an EpiPen and declines all vaccinations. Medicare Wellness Patient is here for a Medicare wellness visit. Complete paperwork was reviewed and updated and has been filed and scan. Depression screen completed. Alcohol AUDIT SCREEN completed. Obesity screen completed. Cardiovascular risk stratification screen completed. Cognition assessed and within reasonable limits Fall risk assessed Discussed healthcare proxy. Discussed [place] order for life sustaining treatment, end-of-life issues, intubation and resuscitation dialysis artificial nutrition and hydration is appropriate. All questions have been answered to patient's satisfaction. Patient verbalized understanding of diagnosis and treatments explained. Advised to call sooner prior to next visit it any questions/concerns arise. Case discussed with Lupe LLOYD who reviewed the assessment and plan. Chart, medications, labs, vital signs reviewed. Dictation was accomplished with the use of [employer] voice recognition software, which is prone to medical misidentifications and grammatical errors. This are unintentional and the practitioner does try to identify and correct these, but some could still be present. Please do not hesitate to contact practitioner for clarification. 06/25/2024 Screening mammogram for breast cancer (ICD-10 - Z12.31) 07/25/2024 Colon cancer screening (ICD-10 - Z12.11) 08/28/2024 Palpitations (ICD-10 - R00.2) Petty is a pleasant 73-year-old female with a past medical history of osteopenia, hypothyroidism, retinal telangiectasias, cataract extraction, fecal smearing and rosacea who presents to the office today for a f/u. #Genetic testing: Patient requesting factor V Leiden and von Willebrand per her son's cardiac tech. #Fasting: Patient states she fasts for 20 hours a day... advised patient against that... she states she would not be stopping #Hypothyroidism: Patient currently following with endocrinology, patient did have parathyroidectomy completed in 2007. Patient did have a ultrasound of her thyroid completed recently on 06/19/2024 that states stable subcentimeter TI-RADS 3 and TI-RADS 5 nodules in the left lobe, for which continued follow-up is recommended. Stable right thyroidectomy sequela. Patient is to receive a follow-up through [facility] of her thyroid nodules. #Palpable lymph nodes: Bilateral what appear to be submandibular lymph nodes or glands palpable on exam today. Ordering soft tissue neck to rule out any other etiology. #Palpitations: Placing 7-day Holter monitor on patient for further evaluation #Dizzy spells: Bilateral carotid ultrasound completed on 07/29/2024 stated less than 50% stenosis within bilateral internal carotid arteries, elevated left subclavian artery velocity, this may represent a significant stenosis in the left subclavian artery. Consider CTA for further evaluation. Vascular referral was placed, unable to order CTA due to the patient having an allergy to contrast dye. #Right hand numbness:August has apt for upper extremity EMG for suspected carpal tunnel or nerve entrapment. #Health maintenance: Declines colonoscopies, overdue on mammogram, overdue for bone density, placed today. Patient declines an EpiPen and declines all vaccinations. All questions have been answered to patient's satisfaction. Patient verbalized understanding of diagnosis and treatments explained. Advised to call sooner prior to next visit it any questions/concerns arise. Case discussed with Lupe LLOYD who reviewed the assessment and plan. Chart, medications, labs, vital signs reviewed. Dictation was accomplished with the use of [employer] voice recognition software, which is prone to medical misidentifications and grammatical errors. This are unintentional and the practitioner does try to identify and correct these, but some could still be present. Please do not hesitate to contact practitioner for clarification. 08/28/2024 Obesity (BMI 30-39.9) (ICD-10 - E66.9) Petty is a pleasant 73-year-old female with a past medical history of osteopenia, hypothyroidism, retinal telangiectasias, cataract extraction, fecal smearing and rosacea who presents to the office today for a f/u. #Genetic testing: Patient requesting factor V Leiden and von Willebrand per her son's cardiac tech. #Fasting: Patient states she fasts for 20 hours a day... advised patient against that... she states she would not be stopping #Hypothyroidism: Patient currently following with endocrinology, patient did have parathyroidectomy completed in 2007. Patient did have a ultrasound of her thyroid completed recently on 06/19/2024 that states stable subcentimeter TI-RADS 3 and TI-RADS 5 nodules in the left lobe, for which continued follow-up is recommended. Stable right thyroidectomy sequela. Patient is to receive a follow-up through [facility] of her thyroid nodules. #Palpable lymph nodes: Bilateral what appear to be submandibular lymph nodes or glands palpable on exam today. Ordering soft tissue neck to rule out any other etiology. #Palpitations: Placing 7-day Holter monitor on patient for further evaluation #Dizzy spells: Bilateral carotid ultrasound completed on 07/29/2024 stated less than 50% stenosis within bilateral internal carotid arteries, elevated left subclavian artery velocity, this may represent a significant stenosis in the left subclavian artery. Consider CTA for further evaluation. Vascular referral was placed, unable to order CTA due to the patient having an allergy to contrast dye. #Right hand numbness:Brigid has apt for upper extremity EMG for suspected carpal tunnel or nerve entrapment. #Health maintenance: Declines colonoscopies, overdue on mammogram, overdue for bone density, placed today. Patient declines an EpiPen and declines all vaccinations. All questions have been answered to patient's satisfaction. Patient verbalized understanding of diagnosis and treatments explained. Advised to call sooner prior to next visit it any questions/concerns arise. Case discussed with Lupe LLOYD who reviewed the assessment and plan. Chart, medications, labs, vital signs reviewed. Dictation was accomplished with the use of [employer] voice recognition software, which is prone to medical misidentifications and grammatical errors. This are unintentional and the practitioner does try to identify and correct these, but some could still be present. Please do not hesitate to contact practitioner for clarification. 09/25/2024 Palpitations (ICD-10 - R00.2) Petty is a pleasant 73-year-old female with a past medical history of osteopenia, hypothyroidism, retinal telangiectasias, cataract extraction, fecal smearing and rosacea who presents to the office today for a f/u. #Carpal tunnel: Completed in August 2024 that revealed carpal tunnel syndrome in patient's right hand. [facility] referral was placed. #Genetic testing: Patient requesting factor V Leiden and von Willebrand per her son's cardiac tech....Fact or V Leiden and von Willebrand factor activity negative for any abnormalities or positive values #Fasting: Patient states she fasts for 20 hours a day... advised patient against that... she states she would not be stopping #Hypothyroidism: Patient currently following with endocrinology, patient did have parathyroidectomy completed in 2007. Patient did have a ultrasound of her thyroid completed recently on 06/19/2024 that states stable subcentimeter TI-RADS 3 and TI-RADS 5 nodules in the left lobe, for which continued follow-up is recommended. Stable right thyroidectomy sequela. Patient is to receive a follow-up through [facility] of her thyroid nodules. #Submandibular gland prominence: This scan was conducted on 09/03/2024 that revealed no obvious asymmetry of the submandibular glands, no definite ductal dilation or calcification. There is an oval hypoechoic structure abutting the posterior aspect of the left submandibular gland. Whether this represents a small mass within the gland or an adjacent lymph node is uncertain. This may be an incidental finding. The patient doing manage on the basis of physical exam and history. No suspicious mass posterior to the left submandibular gland is demonstrated on remote CT. Follow-up in 3 to 6 months was recommended, spoke to patient on the phone about her ultrasound results on 09/09/2024 and patient is in verbal agreement of following up in 3 months with an additional scan or palpable differences upon physical exam #Palpitations: Holter monitor revealed abnormal rhythms including ventricular tachycardia therefore cardiology referral was placed on 09/09/2024 #Dizzy spells: Bilateral carotid ultrasound completed on 07/29/2024 stated less than 50% stenosis within bilateral internal carotid arteries, elevated left subclavian artery velocity, this may represent a significant stenosis in the left subclavian artery. Vascular referral was placed, unable to order CTA due to the patient having an allergy to contrast dye. #Health maintenance: Declines colonoscopies, overdue on mammogram, overdue for bone density, placed today. Patient declines an EpiPen and declines all vaccinations. All questions have been answered to patient's satisfaction. Patient verbalized understanding of diagnosis and treatments explained. Advised to call sooner prior to next visit it any questions/concerns arise. Case discussed with Lupe LLOYD who reviewed the assessment and plan. Chart, medications, labs, vital signs reviewed. Dictation was accomplished with the use of [employer] voice recognition software, which is prone to medical misidentifications and grammatical errors. This are unintentional and the practitioner does try to identify and correct these, but some could still be present. Please do not hesitate to contact practitioner for clarification. 09/25/2024 Obesity (BMI 30-39.9) (ICD-10 - E66.9) Petty is a pleasant 73-year-old female with a past medical history of osteopenia, hypothyroidism, retinal telangiectasias, cataract extraction, fecal smearing and rosacea who presents to the office today for a f/u. #Carpal tunnel: Completed in August 2024 that revealed carpal tunnel syndrome in patient's right hand. [facility] referral was placed. #Genetic testing: Patient requesting factor V Leiden and von Willebrand per her son's cardiac tech....Fact or V Leiden and von Willebrand factor activity negative for any abnormalities or positive values #Fasting: Patient states she fasts for 20 hours a day... advised patient against that... she states she would not be stopping #Hypothyroidism: Patient currently following with endocrinology, patient did have parathyroidectomy completed in 2007. Patient did have a ultrasound of her thyroid completed recently on 06/19/2024 that states stable subcentimeter TI-RADS 3 and TI-RADS 5 nodules in the left lobe, for which continued follow-up is recommended. Stable right thyroidectomy sequela. Patient is to receive a follow-up through [facility] of her thyroid nodules. #Submandibular gland prominence: This scan was conducted on 09/03/2024 that revealed no obvious asymmetry of the submandibular glands, no definite ductal dilation or calcification. There is an oval hypoechoic structure abutting the posterior aspect of the left submandibular gland. Whether this represents a small mass within the gland or an adjacent lymph node is uncertain. This may be an incidental finding. The patient doing manage on the basis of physical exam and history. No suspicious mass posterior to the left submandibular gland is demonstrated on remote CT. Follow-up in 3 to 6 months was recommended, spoke to patient on the phone about her ultrasound results on 09/09/2024 and patient is in verbal agreement of following up in 3 months with an additional scan or palpable differences upon physical exam #Palpitations: Holter monitor revealed abnormal rhythms including ventricular tachycardia therefore cardiology referral was placed on 09/09/2024 #Dizzy spells: Bilateral carotid ultrasound completed on 07/29/2024 stated less than 50% stenosis within bilateral internal carotid arteries, elevated left subclavian artery velocity, this may represent a significant stenosis in the left subclavian artery. Vascular referral was placed, unable to order CTA due to the patient having an allergy to contrast dye. #Health maintenance: Declines colonoscopies, overdue on mammogram, overdue for bone density, placed today. Patient declines an EpiPen and declines all vaccinations. All questions have been answered to patient's satisfaction. Patient verbalized understanding of diagnosis and treatments explained. Advised to call sooner prior to next visit it any questions/concerns arise. Case discussed with Lupe LLOYD who reviewed the assessment and plan. Chart, medications, labs, vital signs reviewed. Dictation was accomplished with the use of [employer] voice recognition software, which is prone to medical misidentifications and grammatical errors. This are unintentional and the practitioner does try to identify and correct these, but some could still be present. Please do not hesitate to contact practitioner for clarification. 09/25/2024 Hypothyroidism, unspecified (ICD-10 - E03.9) Petty is a pleasant 73-year-old female with a past medical history of osteopenia, hypothyroidism, retinal telangiectasias, cataract extraction, fecal smearing and rosacea who presents to the office today for a f/u. #Carpal tunnel: Completed in August 2024 that revealed carpal tunnel syndrome in patient's right hand. [facility] referral was placed. #Genetic testing: Patient requesting factor V Leiden and von Willebrand per her son's cardiac tech....Fact or V Leiden and von Willebrand factor activity negative for any abnormalities or positive values #Fasting: Patient states she fasts for 20 hours a day... advised patient against that... she states she would not be stopping #Hypothyroidism: Patient currently following with endocrinology, patient did have parathyroidectomy completed in 2007. Patient did have a ultrasound of her thyroid completed recently on 06/19/2024 that states stable subcentimeter TI-RADS 3 and TI-RADS 5 nodules in the left lobe, for which continued follow-up is recommended. Stable right thyroidectomy sequela. Patient is to receive a follow-up through [facility] of her thyroid nodules. #Submandibular gland prominence: This scan was conducted on 09/03/2024 that revealed no obvious asymmetry of the submandibular glands, no definite ductal dilation or calcification. There is an oval hypoechoic structure abutting the posterior aspect of the left submandibular gland. Whether this represents a small mass within the gland or an adjacent lymph node is uncertain. This may be an incidental finding. The patient doing manage on the basis of physical exam and history. No suspicious mass posterior to the left submandibular gland is demonstrated on remote CT. Follow-up in 3 to 6 months was recommended, spoke to patient on the phone about her ultrasound results on 09/09/2024 and patient is in verbal agreement of following up in 3 months with an additional scan or palpable differences upon physical exam #Palpitations: Holter monitor revealed abnormal rhythms including ventricular tachycardia therefore cardiology referral was placed on 09/09/2024 #Dizzy spells: Bilateral carotid ultrasound completed on 07/29/2024 stated less than 50% stenosis within bilateral internal carotid arteries, elevated left subclavian artery velocity, this may represent a significant stenosis in the left subclavian artery. Vascular referral was placed, unable to order CTA due to the patient having an allergy to contrast dye. #Health maintenance: Declines colonoscopies, overdue on mammogram, overdue for bone density, placed today. Patient declines an EpiPen and declines all vaccinations. All questions have been answered to patient's satisfaction. Patient verbalized understanding of diagnosis and treatments explained. Advised to call sooner prior to next visit it any questions/concerns arise. Case discussed with Lupe LLOYD who reviewed the assessment and plan. Chart, medications, labs, vital signs reviewed. Dictation was accomplished with the use of [employer] voice recognition software, which is prone to medical misidentifications and grammatical errors. This are unintentional and the practitioner does try to identify and correct these, but some could still be present. Please do not hesitate to contact practitioner for clarification. 08/28/2024 Hypothyroidism, unspecified (ICD-10 - E03.9) Petty is a pleasant 73-year-old female with a past medical history of osteopenia, hypothyroidism, retinal telangiectasias, cataract extraction, fecal smearing and rosacea who presents to the office today for a f/u. #Genetic testing: Patient requesting factor V Leiden and von Willebrand per her son's cardiac tech. #Fasting: Patient states she fasts for 20 hours a day... advised patient against that... she states she would not be stopping #Hypothyroidism: Patient currently following with endocrinology, patient did have parathyroidectomy completed in 2007. Patient did have a ultrasound of her thyroid completed recently on 06/19/2024 that states stable subcentimeter TI-RADS 3 and TI-RADS 5 nodules in the left lobe, for which continued follow-up is recommended. Stable right thyroidectomy sequela. Patient is to receive a follow-up through [facility] of her thyroid nodules. #Palpable lymph nodes: Bilateral what appear to be submandibular lymph nodes or glands palpable on exam today. Ordering soft tissue neck to rule out any other etiology. #Palpitations: Placing 7-day Holter monitor on patient for further evaluation #Dizzy spells: Bilateral carotid ultrasound completed on 07/29/2024 stated less than 50% stenosis within bilateral internal carotid arteries, elevated left subclavian artery velocity, this may represent a significant stenosis in the left subclavian artery. Consider CTA for further evaluation. Vascular referral was placed, unable to order CTA due to the patient having an allergy to contrast dye. #Right hand numbness:August has apt for upper extremity EMG for suspected carpal tunnel or nerve entrapment. #Health maintenance: Declines colonoscopies, overdue on mammogram, overdue for bone density, placed today. Patient declines an EpiPen and declines all vaccinations. All questions have been answered to patient's satisfaction. Patient verbalized understanding of diagnosis and treatments explained. Advised to call sooner prior to next visit it any questions/concerns arise. Case discussed with Lupe LLOYD who reviewed the assessment and plan. Chart, medications, labs, vital signs reviewed. Dictation was accomplished with the use of [employer] voice recognition software, which is prone to medical misidentifications and grammatical errors. This are unintentional and the practitioner does try to identify and correct these, but some could still be present. Please do not hesitate to contact practitioner for clarification. 06/25/2024 Encounter for screening for other disorder (ICD-10 - Z13.89) Petty is a pleasant 73-year-old female with a past medical history of osteopenia, hypothyroidism, retinal telangiectasias, cataract extraction, fecal smearing and rosacea who presents to the office today for Medicare wellness visit #Hypothyroidism: Patient currently following with endocrinology, patient did have parathyroidectomy completed in 2007. Patient did have a ultrasound of her thyroid completed recently on 06/19/2024 that states stable subcentimeter TI-RADS 3 and TI-RADS 5 nodules in the left lobe, for which continued follow-up is recommended. Stable right thyroidectomy sequela. #Palpable lymph nodes: Nonpalpable on exam today, will recheck at follow-up patient is to call the office if she feels as though the lymph nodes are starting to become very palpable #Palpitations: Patient states that she intermittently experiences heart palpitations EKG in office today demonstrates normal sinus rhythm. Anterior septal infarct undetermined. #Dizzy spells: Patient states that she felt as though these dizzy spells are related to the mushroom yogurt she was consuming, advised to discontinue this #Right hand numbness: Obtaining right upper extremity EMG for suspected carpal tunnel or nerve entrapment. #Health maintenance: Declines colonoscopies, overdue on mammogram, overdue for bone density, placed today. Patient declines an EpiPen and declines all vaccinations. Medicare Wellness Patient is here for a Medicare wellness visit. Complete paperwork was reviewed and updated and has been filed and scan. Depression screen completed. Alcohol AUDIT SCREEN completed. Obesity screen completed. Cardiovascular risk stratification screen completed. Cognition assessed and within reasonable limits Fall risk assessed Discussed healthcare proxy. Discussed [place] order for life sustaining treatment, end-of-life issues, intubation and resuscitation dialysis artificial nutrition and hydration is appropriate. All questions have been answered to patient's satisfaction. Patient verbalized understanding of diagnosis and treatments explained. Advised to call sooner prior to next visit it any questions/concerns arise. Case discussed with Lupe LLOYD who reviewed the assessment and plan. Chart, medications, labs, vital signs reviewed. Dictation was accomplished with the use of [employer] voice recognition software, which is prone to medical misidentifications and grammatical errors. This are unintentional and the practitioner does try to identify and correct these, but some could still be present. Please do not hesitate to contact practitioner for clarification. 10/25/2023 Hypothyroidism, unspecified (ICD-10 - E03.9) Patient is a retired cert occupational therapy asst, lives at home with his , has 2 boys. 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 #Rectal incontinence/nonblee ding hemorrhoids, chronic, progressive since 2022, has never been evaluated by GI/was too embarrassed to bring it to her primary care in the past. She was evaluated by GI in 2019 for, as per note she has anal sphincter incompetence and has been recommended further testing through [facility]. #Osteopenia, discussed weightbearing workouts #Reports whitecoat hypertension/will recheck blood pressure in upcoming appointments. 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 #Rectal incontinence/nonblee ding hemorrhoids, chronic, progressive since 2022, has never been evaluated by GI/was too embarrassed to bring it to her primary care in the past. She was evaluated by GI in 2019 for, as per note she has anal sphincter incompetence and has been recommended further testing through [facility]. #Osteopenia, discussed weightbearing workouts #Reports whitecoat hypertension/will recheck blood pressure in upcoming appointments. #Rosacea 06/25/2024 Obesity (BMI 30-39.9) (ICD-10 - E66.9) Petty is a pleasant 73-year-old female with a past medical history of osteopenia, hypothyroidism, retinal telangiectasias, cataract extraction, fecal smearing and rosacea who presents to the office today for Medicare wellness visit #Hypothyroidism: Patient currently following with endocrinology, patient did have parathyroidectomy completed in 2007. Patient did have a ultrasound of her thyroid completed recently on 06/19/2024 that states stable subcentimeter TI-RADS 3 and TI-RADS 5 nodules in the left lobe, for which continued follow-up is recommended. Stable right thyroidectomy sequela. #Palpable lymph nodes: Nonpalpable on exam today, will recheck at follow-up patient is to call the office if she feels as though the lymph nodes are starting to become very palpable #Palpitations: Patient states that she intermittently experiences heart palpitations EKG in office today demonstrates normal sinus rhythm. Anterior septal infarct undetermined. #Dizzy spells: Patient states that she felt as though these dizzy spells are related to the mushroom yogurt she was consuming, advised to discontinue this #Right hand numbness: Obtaining right upper extremity EMG for suspected carpal tunnel or nerve entrapment. #Health maintenance: Declines colonoscopies, overdue on mammogram, overdue for bone density, placed today. Patient declines an EpiPen and declines all vaccinations. Medicare Wellness Patient is here for a Medicare wellness visit. Complete paperwork was reviewed and updated and has been filed and scan. Depression screen completed. Alcohol AUDIT SCREEN completed. Obesity screen completed. Cardiovascular risk stratification screen completed. Cognition assessed and within reasonable limits Fall risk assessed Discussed healthcare proxy. Discussed [place] order for life sustaining treatment, end-of-life issues, intubation and resuscitation dialysis artificial nutrition and hydration is appropriate. All questions have been answered to patient's satisfaction. Patient verbalized understanding of diagnosis and treatments explained. Advised to call sooner prior to next visit it any questions/concerns arise. Case discussed with Lupe LLOYD who reviewed the assessment and plan. Chart, medications, labs, vital signs reviewed. Dictation was accomplished with the use of [employer] voice recognition software, which is prone to medical misidentifications and grammatical errors. This are unintentional and the practitioner does try to identify and correct these, but some could still be present. Please do not hesitate to contact practitioner for clarification. 08/28/2024 Vitamin D deficiency (ICD-10 - E55.9) Petty is a pleasant 73-year-old female with a past medical history of osteopenia, hypothyroidism, retinal telangiectasias, cataract extraction, fecal smearing and rosacea who presents to the office today for a f/u. #Genetic testing: Patient requesting factor V Leiden and von Willebrand per her son's cardiac tech. #Fasting: Patient states she fasts for 20 hours a day... advised patient against that... she states she would not be stopping #Hypothyroidism: Patient currently following with endocrinology, patient did have parathyroidectomy completed in 2007. Patient did have a ultrasound of her thyroid completed recently on 06/19/2024 that states stable subcentimeter TI-RADS 3 and TI-RADS 5 nodules in the left lobe, for which continued follow-up is recommended. Stable right thyroidectomy sequela. Patient is to receive a follow-up through [facility] of her thyroid nodules. #Palpable lymph nodes: Bilateral what appear to be submandibular lymph nodes or glands palpable on exam today. Ordering soft tissue neck to rule out any other etiology. #Palpitations: Placing 7-day Holter monitor on patient for further evaluation #Dizzy spells: Bilateral carotid ultrasound completed on 07/29/2024 stated less than 50% stenosis within bilateral internal carotid arteries, elevated left subclavian artery velocity, this may represent a significant stenosis in the left subclavian artery. Consider CTA for further evaluation. Vascular referral was placed, unable to order CTA due to the patient having an allergy to contrast dye. #Right hand numbness:August has apt for upper extremity EMG for suspected carpal tunnel or nerve entrapment. #Health maintenance: Declines colonoscopies, overdue on mammogram, overdue for bone density, placed today. Patient declines an EpiPen and declines all vaccinations. All questions have been answered to patient's satisfaction. Patient verbalized understanding of diagnosis and treatments explained. Advised to call sooner prior to next visit it any questions/concerns arise. Case discussed with Lupe LLOYD who reviewed the assessment and plan. Chart, medications, labs, vital signs reviewed. Dictation was accomplished with the use of [employer] voice recognition software, which is prone to medical misidentifications and grammatical errors. This are unintentional and the practitioner does try to identify and correct these, but some could still be present. Please do not hesitate to contact practitioner for clarification. 09/25/2024 Vitamin D deficiency (ICD-10 - E55.9) Petty is a pleasant 73-year-old female with a past medical history of osteopenia, hypothyroidism, retinal telangiectasias, cataract extraction, fecal smearing and rosacea who presents to the office today for a f/u. #Carpal tunnel: Completed in August 2024 that revealed carpal tunnel syndrome in patient's right hand. [facility] referral was placed. #Genetic testing: Patient requesting factor V Leiden and von Willebrand per her son's cardiac tech....Fact or V Leiden and von Willebrand factor activity negative for any abnormalities or positive values #Fasting: Patient states she fasts for 20 hours a day... advised patient against that... she states she would not be stopping #Hypothyroidism: Patient currently following with endocrinology, patient did have parathyroidectomy completed in 2007. Patient did have a ultrasound of her thyroid completed recently on 06/19/2024 that states stable subcentimeter TI-RADS 3 and TI-RADS 5 nodules in the left lobe, for which continued follow-up is recommended. Stable right thyroidectomy sequela. Patient is to receive a follow-up through [facility] of her thyroid nodules. #Submandibular gland prominence: This scan was conducted on 09/03/2024 that revealed no obvious asymmetry of the submandibular glands, no definite ductal dilation or calcification. There is an oval hypoechoic structure abutting the posterior aspect of the left submandibular gland. Whether this represents a small mass within the gland or an adjacent lymph node is uncertain. This may be an incidental finding. The patient doing manage on the basis of physical exam and history. No suspicious mass posterior to the left submandibular gland is demonstrated on remote CT. Follow-up in 3 to 6 months was recommended, spoke to patient on the phone about her ultrasound results on 09/09/2024 and patient is in verbal agreement of following up in 3 months with an additional scan or palpable differences upon physical exam #Palpitations: Holter monitor revealed abnormal rhythms including ventricular tachycardia therefore cardiology referral was placed on 09/09/2024 #Dizzy spells: Bilateral carotid ultrasound completed on 07/29/2024 stated less than 50% stenosis within bilateral internal carotid arteries, elevated left subclavian artery velocity, this may represent a significant stenosis in the left subclavian artery. Vascular referral was placed, unable to order CTA due to the patient having an allergy to contrast dye. #Health maintenance: Declines colonoscopies, overdue on mammogram, overdue for bone density, placed today. Patient declines an EpiPen and declines all vaccinations. All questions have been answered to patient's satisfaction. Patient verbalized understanding of diagnosis and treatments explained. Advised to call sooner prior to next visit it any questions/concerns arise. Case discussed with Lupe LLOYD who reviewed the assessment and plan. Chart, medications, labs, vital signs reviewed. Dictation was accomplished with the use of [employer] voice recognition software, which is prone to medical misidentifications and grammatical errors. This are unintentional and the practitioner does try to identify and correct these, but some could still be present. Please do not hesitate to contact practitioner for clarification. 09/25/2024 Rosacea (ICD-10 - L71.9) Petty is a pleasant 73-year-old female with a past medical history of osteopenia, hypothyroidism, retinal telangiectasias, cataract extraction, fecal smearing and rosacea who presents to the office today for a f/u. #Carpal tunnel: Completed in August 2024 that revealed carpal tunnel syndrome in patient's right hand. [facility] referral was placed. #Genetic testing: Patient requesting factor V Leiden and von Willebrand per her son's cardiac tech....Fact or V Leiden and von Willebrand factor activity negative for any abnormalities or positive values #Fasting: Patient states she fasts for 20 hours a day... advised patient against that... she states she would not be stopping #Hypothyroidism: Patient currently following with endocrinology, patient did have parathyroidectomy completed in 2007. Patient did have a ultrasound of her thyroid completed recently on 06/19/2024 that states stable subcentimeter TI-RADS 3 and TI-RADS 5 nodules in the left lobe, for which continued follow-up is recommended. Stable right thyroidectomy sequela. Patient is to receive a follow-up through [facility] of her thyroid nodules. #Submandibular gland prominence: This scan was conducted on 09/03/2024 that revealed no obvious asymmetry of the submandibular glands, no definite ductal dilation or calcification. There is an oval hypoechoic structure abutting the posterior aspect of the left submandibular gland. Whether this represents a small mass within the gland or an adjacent lymph node is uncertain. This may be an incidental finding. The patient doing manage on the basis of physical exam and history. No suspicious mass posterior to the left submandibular gland is demonstrated on remote CT. Follow-up in 3 to 6 months was recommended, spoke to patient on the phone about her ultrasound results on 09/09/2024 and patient is in verbal agreement of following up in 3 months with an additional scan or palpable differences upon physical exam #Palpitations: Holter monitor revealed abnormal rhythms including ventricular tachycardia therefore cardiology referral was placed on 09/09/2024 #Dizzy spells: Bilateral carotid ultrasound completed on 07/29/2024 stated less than 50% stenosis within bilateral internal carotid arteries, elevated left subclavian artery velocity, this may represent a significant stenosis in the left subclavian artery. Vascular referral was placed, unable to order CTA due to the patient having an allergy to contrast dye. #Health maintenance: Declines colonoscopies, overdue on mammogram, overdue for bone density, placed today. Patient declines an EpiPen and declines all vaccinations. All questions have been answered to patient's satisfaction. Patient verbalized understanding of diagnosis and treatments explained. Advised to call sooner prior to next visit it any questions/concerns arise. Case discussed with Lupe LLOYD who reviewed the assessment and plan. Chart, medications, labs, vital signs reviewed. Dictation was accomplished with the use of [employer] voice recognition software, which is prone to medical misidentifications and grammatical errors. This are unintentional and the practitioner does try to identify and correct these, but some could still be present. Please do not hesitate to contact practitioner for clarification. 08/28/2024 Rosacea (ICD-10 - L71.9) Petty is a pleasant 73-year-old female with a past medical history of osteopenia, hypothyroidism, retinal telangiectasias, cataract extraction, fecal smearing and rosacea who presents to the office today for a f/u. #Genetic testing: Patient requesting factor V Leiden and von Willebrand per her son's cardiac tech. #Fasting: Patient states she fasts for 20 hours a day... advised patient against that... she states she would not be stopping #Hypothyroidism: Patient currently following with endocrinology, patient did have parathyroidectomy completed in 2007. Patient did have a ultrasound of her thyroid completed recently on 06/19/2024 that states stable subcentimeter TI-RADS 3 and TI-RADS 5 nodules in the left lobe, for which continued follow-up is recommended. Stable right thyroidectomy sequela. Patient is to receive a follow-up through [facility] of her thyroid nodules. #Palpable lymph nodes: Bilateral what appear to be submandibular lymph nodes or glands palpable on exam today. Ordering soft tissue neck to rule out any other etiology. #Palpitations: Placing 7-day Holter monitor on patient for further evaluation #Dizzy spells: Bilateral carotid ultrasound completed on 07/29/2024 stated less than 50% stenosis within bilateral internal carotid arteries, elevated left subclavian artery velocity, this may represent a significant stenosis in the left subclavian artery. Consider CTA for further evaluation. Vascular referral was placed, unable to order CTA due to the patient having an allergy to contrast dye. #Right hand numbness:Brigid has apt for upper extremity EMG for suspected carpal tunnel or nerve entrapment. #Health maintenance: Declines colonoscopies, overdue on mammogram, overdue for bone density, placed today. Patient declines an EpiPen and declines all vaccinations. All questions have been answered to patient's satisfaction. Patient verbalized understanding of diagnosis and treatments explained. Advised to call sooner prior to next visit it any questions/concerns arise. Case discussed with Lupe LLOYD who reviewed the assessment and plan. Chart, medications, labs, vital signs reviewed. Dictation was accomplished with the use of [employer] voice recognition software, which is prone to medical misidentifications and grammatical errors. This are unintentional and the practitioner does try to identify and correct these, but some could still be present. Please do not hesitate to contact practitioner for clarification. 06/25/2024 Other specified counseling (ICD-10 - Z71.89) Petty is a pleasant 73-year-old female with a past medical history of osteopenia, hypothyroidism, retinal telangiectasias, cataract extraction, fecal smearing and rosacea who presents to the office today for Medicare wellness visit #Hypothyroidism: Patient currently following with endocrinology, patient did have parathyroidectomy completed in 2007. Patient did have a ultrasound of her thyroid completed recently on 06/19/2024 that states stable subcentimeter TI-RADS 3 and TI-RADS 5 nodules in the left lobe, for which continued follow-up is recommended. Stable right thyroidectomy sequela. #Palpable lymph nodes: Nonpalpable on exam today, will recheck at follow-up patient is to call the office if she feels as though the lymph nodes are starting to become very palpable #Palpitations: Patient states that she intermittently experiences heart palpitations EKG in office today demonstrates normal sinus rhythm. Anterior septal infarct undetermined. #Dizzy spells: Patient states that she felt as though these dizzy spells are related to the mushroom yogurt she was consuming, advised to discontinue this #Right hand numbness: Obtaining right upper extremity EMG for suspected carpal tunnel or nerve entrapment. #Health maintenance: Declines colonoscopies, overdue on mammogram, overdue for bone density, placed today. Patient declines an EpiPen and declines all vaccinations. Medicare Wellness Patient is here for a Medicare wellness visit. Complete paperwork was reviewed and updated and has been filed and scan. Depression screen completed. Alcohol AUDIT SCREEN completed. Obesity screen completed. Cardiovascular risk stratification screen completed. Cognition assessed and within reasonable limits Fall risk assessed Discussed healthcare proxy. Discussed [place] order for life sustaining treatment, end-of-life issues, intubation and resuscitation dialysis artificial nutrition and hydration is appropriate. All questions have been answered to patient's satisfaction. Patient verbalized understanding of diagnosis and treatments explained. Advised to call sooner prior to next visit it any questions/concerns arise. Case discussed with Lupe LLOYD who reviewed the assessment and plan. Chart, medications, labs, vital signs reviewed. Dictation was accomplished with the use of [employer] voice recognition software, which is prone to medical misidentifications and grammatical errors. This are unintentional and the practitioner does try to identify and correct these, but some could still be present. Please do not hesitate to contact practitioner for clarification. 06/25/2024 Retinal telangiectasis, unspecified eye (ICD-10 - H35.079) Petty is a pleasant 73-year-old female with a past medical history of osteopenia, hypothyroidism, retinal telangiectasias, cataract extraction, fecal smearing and rosacea who presents to the office today for Medicare wellness visit #Hypothyroidism: Patient currently following with endocrinology, patient did have parathyroidectomy completed in 2007. Patient did have a ultrasound of her thyroid completed recently on 06/19/2024 that states stable subcentimeter TI-RADS 3 and TI-RADS 5 nodules in the left lobe, for which continued follow-up is recommended. Stable right thyroidectomy sequela. #Palpable lymph nodes: Nonpalpable on exam today, will recheck at follow-up patient is to call the office if she feels as though the lymph nodes are starting to become very palpable #Palpitations: Patient states that she intermittently experiences heart palpitations EKG in office today demonstrates normal sinus rhythm. Anterior septal infarct undetermined. #Dizzy spells: Patient states that she felt as though these dizzy spells are related to the mushroom yogurt she was consuming, advised to discontinue this #Right hand numbness: Obtaining right upper extremity EMG for suspected carpal tunnel or nerve entrapment. #Health maintenance: Declines colonoscopies, overdue on mammogram, overdue for bone density, placed today. Patient declines an EpiPen and declines all vaccinations. Medicare Wellness Patient is here for a Medicare wellness visit. Complete paperwork was reviewed and updated and has been filed and scan. Depression screen completed. Alcohol AUDIT SCREEN completed. Obesity screen completed. Cardiovascular risk stratification screen completed. Cognition assessed and within reasonable limits Fall risk assessed Discussed healthcare proxy. Discussed [place] order for life sustaining treatment, end-of-life issues, intubation and resuscitation dialysis artificial nutrition and hydration is appropriate. All questions have been answered to patient's satisfaction. Patient verbalized understanding of diagnosis and treatments explained. Advised to call sooner prior to next visit it any questions/concerns arise. Case discussed with Lupe LLOYD who reviewed the assessment and plan. Chart, medications, labs, vital signs reviewed. Dictation was accomplished with the use of [employer] voice recognition software, which is prone to medical misidentifications and grammatical errors. This are unintentional and the practitioner does try to identify and correct these, but some could still be present. Please do not hesitate to contact practitioner for clarification. 08/28/2024 Headache, unspecified (ICD-10 - R51.9) Petty is a pleasant 73-year-old female with a past medical history of osteopenia, hypothyroidism, retinal telangiectasias, cataract extraction, fecal smearing and rosacea who presents to the office today for a f/u. #Genetic testing: Patient requesting factor V Leiden and von Willebrand per her son's cardiac tech. #Fasting: Patient states she fasts for 20 hours a day... advised patient against that... she states she would not be stopping #Hypothyroidism: Patient currently following with endocrinology, patient did have parathyroidectomy completed in 2007. Patient did have a ultrasound of her thyroid completed recently on 06/19/2024 that states stable subcentimeter TI-RADS 3 and TI-RADS 5 nodules in the left lobe, for which continued follow-up is recommended. Stable right thyroidectomy sequela. Patient is to receive a follow-up through [facility] of her thyroid nodules. #Palpable lymph nodes: Bilateral what appear to be submandibular lymph nodes or glands palpable on exam today. Ordering soft tissue neck to rule out any other etiology. #Palpitations: Placing 7-day Holter monitor on patient for further evaluation #Dizzy spells: Bilateral carotid ultrasound completed on 07/29/2024 stated less than 50% stenosis within bilateral internal carotid arteries, elevated left subclavian artery velocity, this may represent a significant stenosis in the left subclavian artery. Consider CTA for further evaluation. Vascular referral was placed, unable to order CTA due to the patient having an allergy to contrast dye. #Right hand numbness:Brigid has apt for upper extremity EMG for suspected carpal tunnel or nerve entrapment. #Health maintenance: Declines colonoscopies, overdue on mammogram, overdue for bone density, placed today. Patient declines an EpiPen and declines all vaccinations. All questions have been answered to patient's satisfaction. Patient verbalized understanding of diagnosis and treatments explained. Advised to call sooner prior to next visit it any questions/concerns arise. Case discussed with Lupe LLOYD who reviewed the assessment and plan. Chart, medications, labs, vital signs reviewed. Dictation was accomplished with the use of [employer] voice recognition software, which is prone to medical misidentifications and grammatical errors. This are unintentional and the practitioner does try to identify and correct these, but some could still be present. Please do not hesitate to contact practitioner for clarification. 09/25/2024 Headache, unspecified (ICD-10 - R51.9) Petty is a pleasant 73-year-old female with a past medical history of osteopenia, hypothyroidism, retinal telangiectasias, cataract extraction, fecal smearing and rosacea who presents to the office today for a f/u. #Carpal tunnel: Completed in August 2024 that revealed carpal tunnel syndrome in patient's right hand. [facility] referral was placed. #Genetic testing: Patient requesting factor V Leiden and von Willebrand per her son's cardiac tech....Fact or V Leiden and von Willebrand factor activity negative for any abnormalities or positive values #Fasting: Patient states she fasts for 20 hours a day... advised patient against that... she states she would not be stopping #Hypothyroidism: Patient currently following with endocrinology, patient did have parathyroidectomy completed in 2007. Patient did have a ultrasound of her thyroid completed recently on 06/19/2024 that states stable subcentimeter TI-RADS 3 and TI-RADS 5 nodules in the left lobe, for which continued follow-up is recommended. Stable right thyroidectomy sequela. Patient is to receive a follow-up through [facility] of her thyroid nodules. #Submandibular gland prominence: This scan was conducted on 09/03/2024 that revealed no obvious asymmetry of the submandibular glands, no definite ductal dilation or calcification. There is an oval hypoechoic structure abutting the posterior aspect of the left submandibular gland. Whether this represents a small mass within the gland or an adjacent lymph node is uncertain. This may be an incidental finding. The patient doing manage on the basis of physical exam and history. No suspicious mass posterior to the left submandibular gland is demonstrated on remote CT. Follow-up in 3 to 6 months was recommended, spoke to patient on the phone about her ultrasound results on 09/09/2024 and patient is in verbal agreement of following up in 3 months with an additional scan or palpable differences upon physical exam #Palpitations: Holter monitor revealed abnormal rhythms including ventricular tachycardia therefore cardiology referral was placed on 09/09/2024 #Dizzy spells: Bilateral carotid ultrasound completed on 07/29/2024 stated less than 50% stenosis within bilateral internal carotid arteries, elevated left subclavian artery velocity, this may represent a significant stenosis in the left subclavian artery. Vascular referral was placed, unable to order CTA due to the patient having an allergy to contrast dye. #Health maintenance: Declines colonoscopies, overdue on mammogram, overdue for bone density, placed today. Patient declines an EpiPen and declines all vaccinations. All questions have been answered to patient's satisfaction. Patient verbalized understanding of diagnosis and treatments explained. Advised to call sooner prior to next visit it any questions/concerns arise. Case discussed with Lupe LLOYD who reviewed the assessment and plan. Chart, medications, labs, vital signs reviewed. Dictation was accomplished with the use of [employer] voice recognition software, which is prone to medical misidentifications and grammatical errors. This are unintentional and the practitioner does try to identify and correct these, but some could still be present. Please do not hesitate to contact practitioner for clarification. 09/25/2024 Submandibular gland swelling (ICD-10 - R60.0) Petty is a pleasant 73-year-old female with a past medical history of osteopenia, hypothyroidism, retinal telangiectasias, cataract extraction, fecal smearing and rosacea who presents to the office today for a f/u. #Carpal tunnel: Completed in August 2024 that revealed carpal tunnel syndrome in patient's right hand. [facility] referral was placed. #Genetic testing: Patient requesting factor V Leiden and von Willebrand per her son's cardiac tech....Fact or V Leiden and von Willebrand factor activity negative for any abnormalities or positive values #Fasting: Patient states she fasts for 20 hours a day... advised patient against that... she states she would not be stopping #Hypothyroidism: Patient currently following with endocrinology, patient did have parathyroidectomy completed in 2007. Patient did have a ultrasound of her thyroid completed recently on 06/19/2024 that states stable subcentimeter TI-RADS 3 and TI-RADS 5 nodules in the left lobe, for which continued follow-up is recommended. Stable right thyroidectomy sequela. Patient is to receive a follow-up through [facility] of her thyroid nodules. #Submandibular gland prominence: This scan was conducted on 09/03/2024 that revealed no obvious asymmetry of the submandibular glands, no definite ductal dilation or calcification. There is an oval hypoechoic structure abutting the posterior aspect of the left submandibular gland. Whether this represents a small mass within the gland or an adjacent lymph node is uncertain. This may be an incidental finding. The patient doing manage on the basis of physical exam and history. No suspicious mass posterior to the left submandibular gland is demonstrated on remote CT. Follow-up in 3 to 6 months was recommended, spoke to patient on the phone about her ultrasound results on 09/09/2024 and patient is in verbal agreement of following up in 3 months with an additional scan or palpable differences upon physical exam #Palpitations: Holter monitor revealed abnormal rhythms including ventricular tachycardia therefore cardiology referral was placed on 09/09/2024 #Dizzy spells: Bilateral carotid ultrasound completed on 07/29/2024 stated less than 50% stenosis within bilateral internal carotid arteries, elevated left subclavian artery velocity, this may represent a significant stenosis in the left subclavian artery. Vascular referral was placed, unable to order CTA due to the patient having an allergy to contrast dye. #Health maintenance: Declines colonoscopies, overdue on mammogram, overdue for bone density, placed today. Patient declines an EpiPen and declines all vaccinations. All questions have been answered to patient's satisfaction. Patient verbalized understanding of diagnosis and treatments explained. Advised to call sooner prior to next visit it any questions/concerns arise. Case discussed with Lupe LLOYD who reviewed the assessment and plan. Chart, medications, labs, vital signs reviewed. Dictation was accomplished with the use of [employer] voice recognition software, which is prone to medical misidentifications and grammatical errors. This are unintentional and the practitioner does try to identify and correct these, but some could still be present. Please do not hesitate to contact practitioner for clarification. 08/28/2024 Submandibular gland swelling (ICD-10 - R60.0) Petty is a pleasant 73-year-old female with a past medical history of osteopenia, hypothyroidism, retinal telangiectasias, cataract extraction, fecal smearing and rosacea who presents to the office today for a f/u. #Genetic testing: Patient requesting factor V Leiden and von Willebrand per her son's cardiac tech. #Fasting: Patient states she fasts for 20 hours a day... advised patient against that... she states she would not be stopping #Hypothyroidism: Patient currently following with endocrinology, patient did have parathyroidectomy completed in 2007. Patient did have a ultrasound of her thyroid completed recently on 06/19/2024 that states stable subcentimeter TI-RADS 3 and TI-RADS 5 nodules in the left lobe, for which continued follow-up is recommended. Stable right thyroidectomy sequela. Patient is to receive a follow-up through [facility] of her thyroid nodules. #Palpable lymph nodes: Bilateral what appear to be submandibular lymph nodes or glands palpable on exam today. Ordering soft tissue neck to rule out any other etiology. #Palpitations: Placing 7-day Holter monitor on patient for further evaluation #Dizzy spells: Bilateral carotid ultrasound completed on 07/29/2024 stated less than 50% stenosis within bilateral internal carotid arteries, elevated left subclavian artery velocity, this may represent a significant stenosis in the left subclavian artery. Consider CTA for further evaluation. Vascular referral was placed, unable to order CTA due to the patient having an allergy to contrast dye. #Right hand numbness:August has apt for upper extremity EMG for suspected carpal tunnel or nerve entrapment. #Health maintenance: Declines colonoscopies, overdue on mammogram, overdue for bone density, placed today. Patient declines an EpiPen and declines all vaccinations. All questions have been answered to patient's satisfaction. Patient verbalized understanding of diagnosis and treatments explained. Advised to call sooner prior to next visit it any questions/concerns arise. Case discussed with Lupe LLOYD who reviewed the assessment and plan. Chart, medications, labs, vital signs reviewed. Dictation was accomplished with the use of [employer] voice recognition software, which is prone to medical misidentifications and grammatical errors. This are unintentional and the practitioner does try to identify and correct these, but some could still be present. Please do not hesitate to contact practitioner for clarification. 06/25/2024 Vitamin D deficiency (ICD-10 - E55.9) Petty is a pleasant 73-year-old female with a past medical history of osteopenia, hypothyroidism, retinal telangiectasias, cataract extraction, fecal smearing and rosacea who presents to the office today for Medicare wellness visit #Hypothyroidism: Patient currently following with endocrinology, patient did have parathyroidectomy completed in 2007. Patient did have a ultrasound of her thyroid completed recently on 06/19/2024 that states stable subcentimeter TI-RADS 3 and TI-RADS 5 nodules in the left lobe, for which continued follow-up is recommended. Stable right thyroidectomy sequela. #Palpable lymph nodes: Nonpalpable on exam today, will recheck at follow-up patient is to call the office if she feels as though the lymph nodes are starting to become very palpable #Palpitations: Patient states that she intermittently experiences heart palpitations EKG in office today demonstrates normal sinus rhythm. Anterior septal infarct undetermined. #Dizzy spells: Patient states that she felt as though these dizzy spells are related to the mushroom yogurt she was consuming, advised to discontinue this #Right hand numbness: Obtaining right upper extremity EMG for suspected carpal tunnel or nerve entrapment. #Health maintenance: Declines colonoscopies, overdue on mammogram, overdue for bone density, placed today. Patient declines an EpiPen and declines all vaccinations. Medicare Wellness Patient is here for a Medicare wellness visit. Complete paperwork was reviewed and updated and has been filed and scan. Depression screen completed. Alcohol AUDIT SCREEN completed. Obesity screen completed. Cardiovascular risk stratification screen completed. Cognition assessed and within reasonable limits Fall risk assessed Discussed healthcare proxy. Discussed [place] order for life sustaining treatment, end-of-life issues, intubation and resuscitation dialysis artificial nutrition and hydration is appropriate. All questions have been answered to patient's satisfaction. Patient verbalized understanding of diagnosis and treatments explained. Advised to call sooner prior to next visit it any questions/concerns arise. Case discussed with Lupe LLOYD who reviewed the assessment and plan. Chart, medications, labs, vital signs reviewed. Dictation was accomplished with the use of [employer] voice recognition software, which is prone to medical misidentifications and grammatical errors. This are unintentional and the practitioner does try to identify and correct these, but some could still be present. Please do not hesitate to contact practitioner for clarification. 06/25/2024 Rosacea (ICD-10 - L71.9) Petty is a pleasant 73-year-old female with a past medical history of osteopenia, hypothyroidism, retinal telangiectasias, cataract extraction, fecal smearing and rosacea who presents to the office today for Medicare wellness visit #Hypothyroidism: Patient currently following with endocrinology, patient did have parathyroidectomy completed in 2007. Patient did have a ultrasound of her thyroid completed recently on 06/19/2024 that states stable subcentimeter TI-RADS 3 and TI-RADS 5 nodules in the left lobe, for which continued follow-up is recommended. Stable right thyroidectomy sequela. #Palpable lymph nodes: Nonpalpable on exam today, will recheck at follow-up patient is to call the office if she feels as though the lymph nodes are starting to become very palpable #Palpitations: Patient states that she intermittently experiences heart palpitations EKG in office today demonstrates normal sinus rhythm. Anterior septal infarct undetermined. #Dizzy spells: Patient states that she felt as though these dizzy spells are related to the mushroom yogurt she was consuming, advised to discontinue this #Right hand numbness: Obtaining right upper extremity EMG for suspected carpal tunnel or nerve entrapment. #Health maintenance: Declines colonoscopies, overdue on mammogram, overdue for bone density, placed today. Patient declines an EpiPen and declines all vaccinations. Medicare Wellness Patient is here for a Medicare wellness visit. Complete paperwork was reviewed and updated and has been filed and scan. Depression screen completed. Alcohol AUDIT SCREEN completed. Obesity screen completed. Cardiovascular risk stratification screen completed. Cognition assessed and within reasonable limits Fall risk assessed Discussed healthcare proxy. Discussed [place] order for life sustaining treatment, end-of-life issues, intubation and resuscitation dialysis artificial nutrition and hydration is appropriate. All questions have been answered to patient's satisfaction. Patient verbalized understanding of diagnosis and treatments explained. Advised to call sooner prior to next visit it any questions/concerns arise. Case discussed with Lupe LLOYD who reviewed the assessment and plan. Chart, medications, labs, vital signs reviewed. Dictation was accomplished with the use of [employer] voice recognition software, which is prone to medical misidentifications and grammatical errors. This are unintentional and the practitioner does try to identify and correct these, but some could still be present. Please do not hesitate to contact practitioner for clarification. 08/28/2024 Genetic testing (ICD-10 - Z13.79) Petty is a pleasant 73-year-old female with a past medical history of osteopenia, hypothyroidism, retinal telangiectasias, cataract extraction, fecal smearing and rosacea who presents to the office today for a f/u. #Genetic testing: Patient requesting factor V Leiden and von Willebrand per her son's cardiac tech. #Fasting: Patient states she fasts for 20 hours a day... advised patient against that... she states she would not be stopping #Hypothyroidism: Patient currently following with endocrinology, patient did have parathyroidectomy completed in 2007. Patient did have a ultrasound of her thyroid completed recently on 06/19/2024 that states stable subcentimeter TI-RADS 3 and TI-RADS 5 nodules in the left lobe, for which continued follow-up is recommended. Stable right thyroidectomy sequela. Patient is to receive a follow-up through [facility] of her thyroid nodules. #Palpable lymph nodes: Bilateral what appear to be submandibular lymph nodes or glands palpable on exam today. Ordering soft tissue neck to rule out any other etiology. #Palpitations: Placing 7-day Holter monitor on patient for further evaluation #Dizzy spells: Bilateral carotid ultrasound completed on 07/29/2024 stated less than 50% stenosis within bilateral internal carotid arteries, elevated left subclavian artery velocity, this may represent a significant stenosis in the left subclavian artery. Consider CTA for further evaluation. Vascular referral was placed, unable to order CTA due to the patient having an allergy to contrast dye. #Right hand numbness:August has apt for upper extremity EMG for suspected carpal tunnel or nerve entrapment. #Health maintenance: Declines colonoscopies, overdue on mammogram, overdue for bone density, placed today. Patient declines an EpiPen and declines all vaccinations. All questions have been answered to patient's satisfaction. Patient verbalized understanding of diagnosis and treatments explained. Advised to call sooner prior to next visit it any questions/concerns arise. Case discussed with Lupe LLOYD who reviewed the assessment and plan. Chart, medications, labs, vital signs reviewed. Dictation was accomplished with the use of [employer] voice recognition software, which is prone to medical misidentifications and grammatical errors. This are unintentional and the practitioner does try to identify and correct these, but some could still be present. Please do not hesitate to contact practitioner for clarification. 09/25/2024 Genetic testing (ICD-10 - Z13.79) Petty is a pleasant 73-year-old female with a past medical history of osteopenia, hypothyroidism, retinal telangiectasias, cataract extraction, fecal smearing and rosacea who presents to the office today for a f/u. #Carpal tunnel: Completed in August 2024 that revealed carpal tunnel syndrome in patient's right hand. [facility] referral was placed. #Genetic testing: Patient requesting factor V Leiden and von Willebrand per her son's cardiac tech....Fact or V Leiden and von Willebrand factor activity negative for any abnormalities or positive values #Fasting: Patient states she fasts for 20 hours a day... advised patient against that... she states she would not be stopping #Hypothyroidism: Patient currently following with endocrinology, patient did have parathyroidectomy completed in 2007. Patient did have a ultrasound of her thyroid completed recently on 06/19/2024 that states stable subcentimeter TI-RADS 3 and TI-RADS 5 nodules in the left lobe, for which continued follow-up is recommended. Stable right thyroidectomy sequela. Patient is to receive a follow-up through [facility] of her thyroid nodules. #Submandibular gland prominence: This scan was conducted on 09/03/2024 that revealed no obvious asymmetry of the submandibular glands, no definite ductal dilation or calcification. There is an oval hypoechoic structure abutting the posterior aspect of the left submandibular gland. Whether this represents a small mass within the gland or an adjacent lymph node is uncertain. This may be an incidental finding. The patient doing manage on the basis of physical exam and history. No suspicious mass posterior to the left submandibular gland is demonstrated on remote CT. Follow-up in 3 to 6 months was recommended, spoke to patient on the phone about her ultrasound results on 09/09/2024 and patient is in verbal agreement of following up in 3 months with an additional scan or palpable differences upon physical exam #Palpitations: Holter monitor revealed abnormal rhythms including ventricular tachycardia therefore cardiology referral was placed on 09/09/2024 #Dizzy spells: Bilateral carotid ultrasound completed on 07/29/2024 stated less than 50% stenosis within bilateral internal carotid arteries, elevated left subclavian artery velocity, this may represent a significant stenosis in the left subclavian artery. Vascular referral was placed, unable to order CTA due to the patient having an allergy to contrast dye. #Health maintenance: Declines colonoscopies, overdue on mammogram, overdue for bone density, placed today. Patient declines an EpiPen and declines all vaccinations. All questions have been answered to patient's satisfaction. Patient verbalized understanding of diagnosis and treatments explained. Advised to call sooner prior to next visit it any questions/concerns arise. Case discussed with Lupe LLOYD who reviewed the assessment and plan. Chart, medications, labs, vital signs reviewed. Dictation was accomplished with the use of [employer] voice recognition software, which is prone to medical misidentifications and grammatical errors. This are unintentional and the practitioner does try to identify and correct these, but some could still be present. Please do not hesitate to contact practitioner for clarification. 09/25/2024 Encounter for examination of blood pressure without abnormal findings (ICD-10 - Z01.30) Petty is a pleasant 73-year-old female with a past medical history of osteopenia, hypothyroidism, retinal telangiectasias, cataract extraction, fecal smearing and rosacea who presents to the office today for a f/u. #Carpal tunnel: Completed in August 2024 that revealed carpal tunnel syndrome in patient's right hand. [facility] referral was placed. #Genetic testing: Patient requesting factor V Leiden and von Willebrand per her son's cardiac tech....Fact or V Leiden and von Willebrand factor activity negative for any abnormalities or positive values #Fasting: Patient states she fasts for 20 hours a day... advised patient against that... she states she would not be stopping #Hypothyroidism: Patient currently following with endocrinology, patient did have parathyroidectomy completed in 2007. Patient did have a ultrasound of her thyroid completed recently on 06/19/2024 that states stable subcentimeter TI-RADS 3 and TI-RADS 5 nodules in the left lobe, for which continued follow-up is recommended. Stable right thyroidectomy sequela. Patient is to receive a follow-up through [facility] of her thyroid nodules. #Submandibular gland prominence: This scan was conducted on 09/03/2024 that revealed no obvious asymmetry of the submandibular glands, no definite ductal dilation or calcification. There is an oval hypoechoic structure abutting the posterior aspect of the left submandibular gland. Whether this represents a small mass within the gland or an adjacent lymph node is uncertain. This may be an incidental finding. The patient doing manage on the basis of physical exam and history. No suspicious mass posterior to the left submandibular gland is demonstrated on remote CT. Follow-up in 3 to 6 months was recommended, spoke to patient on the phone about her ultrasound results on 09/09/2024 and patient is in verbal agreement of following up in 3 months with an additional scan or palpable differences upon physical exam #Palpitations: Holter monitor revealed abnormal rhythms including ventricular tachycardia therefore cardiology referral was placed on 09/09/2024 #Dizzy spells: Bilateral carotid ultrasound completed on 07/29/2024 stated less than 50% stenosis within bilateral internal carotid arteries, elevated left subclavian artery velocity, this may represent a significant stenosis in the left subclavian artery. Vascular referral was placed, unable to order CTA due to the patient having an allergy to contrast dye. #Health maintenance: Declines colonoscopies, overdue on mammogram, overdue for bone density, placed today. Patient declines an EpiPen and declines all vaccinations. All questions have been answered to patient's satisfaction. Patient verbalized understanding of diagnosis and treatments explained. Advised to call sooner prior to next visit it any questions/concerns arise. Case discussed with Lupe LLOYD who reviewed the assessment and plan. Chart, medications, labs, vital signs reviewed. Dictation was accomplished with the use of [employer] voice recognition software, which is prone to medical misidentifications and grammatical errors. This are unintentional and the practitioner does try to identify and correct these, but some could still be present. Please do not hesitate to contact practitioner for clarification. 06/25/2024 Hypothyroidism, unspecified (ICD-10 - E03.9) Ptety is a pleasant 73-year-old female with a past medical history of osteopenia, hypothyroidism, retinal telangiectasias, cataract extraction, fecal smearing and rosacea who presents to the office today for Medicare wellness visit #Hypothyroidism: Patient currently following with endocrinology, patient did have parathyroidectomy completed in 2007. Patient did have a ultrasound of her thyroid completed recently on 06/19/2024 that states stable subcentimeter TI-RADS 3 and TI-RADS 5 nodules in the left lobe, for which continued follow-up is recommended. Stable right thyroidectomy sequela. #Palpable lymph nodes: Nonpalpable on exam today, will recheck at follow-up patient is to call the office if she feels as though the lymph nodes are starting to become very palpable #Palpitations: Patient states that she intermittently experiences heart palpitations EKG in office today demonstrates normal sinus rhythm. Anterior septal infarct undetermined. #Dizzy spells: Patient states that she felt as though these dizzy spells are related to the mushroom yogurt she was consuming, advised to discontinue this #Right hand numbness: Obtaining right upper extremity EMG for suspected carpal tunnel or nerve entrapment. #Health maintenance: Declines colonoscopies, overdue on mammogram, overdue for bone density, placed today. Patient declines an EpiPen and declines all vaccinations. Medicare Wellness Patient is here for a Medicare wellness visit. Complete paperwork was reviewed and updated and has been filed and scan. Depression screen completed. Alcohol AUDIT SCREEN completed. Obesity screen completed. Cardiovascular risk stratification screen completed. Cognition assessed and within reasonable limits Fall risk assessed Discussed healthcare proxy. Discussed [place] order for life sustaining treatment, end-of-life issues, intubation and resuscitation dialysis artificial nutrition and hydration is appropriate. All questions have been answered to patient's satisfaction. Patient verbalized understanding of diagnosis and treatments explained. Advised to call sooner prior to next visit it any questions/concerns arise. Case discussed with Lupe LLOYD who reviewed the assessment and plan. Chart, medications, labs, vital signs reviewed. Dictation was accomplished with the use of [employer] voice recognition software, which is prone to medical misidentifications and grammatical errors. This are unintentional and the practitioner does try to identify and correct these, but some could still be present. Please do not hesitate to contact practitioner for clarification. 08/28/2024 Encounter for examination of blood pressure without abnormal findings (ICD-10 - Z01.30) Petty is a pleasant 73-year-old female with a past medical history of osteopenia, hypothyroidism, retinal telangiectasias, cataract extraction, fecal smearing and rosacea who presents to the office today for a f/u. #Genetic testing: Patient requesting factor V Leiden and von Willebrand per her son's cardiac tech. #Fasting: Patient states she fasts for 20 hours a day... advised patient against that... she states she would not be stopping #Hypothyroidism: Patient currently following with endocrinology, patient did have parathyroidectomy completed in 2007. Patient did have a ultrasound of her thyroid completed recently on 06/19/2024 that states stable subcentimeter TI-RADS 3 and TI-RADS 5 nodules in the left lobe, for which continued follow-up is recommended. Stable right thyroidectomy sequela. Patient is to receive a follow-up through [facility] of her thyroid nodules. #Palpable lymph nodes: Bilateral what appear to be submandibular lymph nodes or glands palpable on exam today. Ordering soft tissue neck to rule out any other etiology. #Palpitations: Placing 7-day Holter monitor on patient for further evaluation #Dizzy spells: Bilateral carotid ultrasound completed on 07/29/2024 stated less than 50% stenosis within bilateral internal carotid arteries, elevated left subclavian artery velocity, this may represent a significant stenosis in the left subclavian artery. Consider CTA for further evaluation. Vascular referral was placed, unable to order CTA due to the patient having an allergy to contrast dye. #Right hand numbness:August has apt for upper extremity EMG for suspected carpal tunnel or nerve entrapment. #Health maintenance: Declines colonoscopies, overdue on mammogram, overdue for bone density, placed today. Patient declines an EpiPen and declines all vaccinations. All questions have been answered to patient's satisfaction. Patient verbalized understanding of diagnosis and treatments explained. Advised to call sooner prior to next visit it any questions/concerns arise. Case discussed with Lupe LLOYD who reviewed the assessment and plan. Chart, medications, labs, vital signs reviewed. Dictation was accomplished with the use of [employer] voice recognition software, which is prone to medical misidentifications and grammatical errors. This are unintentional and the practitioner does try to identify and correct these, but some could still be present. Please do not hesitate to contact practitioner for clarification. 06/25/2024 Headache, unspecified (ICD-10 - R51.9) Petty is a pleasant 73-year-old female with a past medical history of osteopenia, hypothyroidism, retinal telangiectasias, cataract extraction, fecal smearing and rosacea who presents to the office today for Medicare wellness visit #Hypothyroidism: Patient currently following with endocrinology, patient did have parathyroidectomy completed in 2007. Patient did have a ultrasound of her thyroid completed recently on 06/19/2024 that states stable subcentimeter TI-RADS 3 and TI-RADS 5 nodules in the left lobe, for which continued follow-up is recommended. Stable right thyroidectomy sequela. #Palpable lymph nodes: Nonpalpable on exam today, will recheck at follow-up patient is to call the office if she feels as though the lymph nodes are starting to become very palpable #Palpitations: Patient states that she intermittently experiences heart palpitations EKG in office today demonstrates normal sinus rhythm. Anterior septal infarct undetermined. #Dizzy spells: Patient states that she felt as though these dizzy spells are related to the mushroom yogurt she was consuming, advised to discontinue this #Right hand numbness: Obtaining right upper extremity EMG for suspected carpal tunnel or nerve entrapment. #Health maintenance: Declines colonoscopies, overdue on mammogram, overdue for bone density, placed today. Patient declines an EpiPen and declines all vaccinations. Medicare Wellness Patient is here for a Medicare wellness visit. Complete paperwork was reviewed and updated and has been filed and scan. Depression screen completed. Alcohol AUDIT SCREEN completed. Obesity screen completed. Cardiovascular risk stratification screen completed. Cognition assessed and within reasonable limits Fall risk assessed Discussed healthcare proxy. Discussed [place] order for life sustaining treatment, end-of-life issues, intubation and resuscitation dialysis artificial nutrition and hydration is appropriate. All questions have been answered to patient's satisfaction. Patient verbalized understanding of diagnosis and treatments explained. Advised to call sooner prior to next visit it any questions/concerns arise. Case discussed with Lupe LLOYD who reviewed the assessment and plan. Chart, medications, labs, vital signs reviewed. Dictation was accomplished with the use of [employer] voice recognition software, which is prone to medical misidentifications and grammatical errors. This are unintentional and the practitioner does try to identify and correct these, but some could still be present. Please do not hesitate to contact practitioner for clarification. Plan Of Treatment Pending Test Test Name Order Date Echocardiogram 10/26/2022 EMG/NCV ARMS 06/25/2024 MAMMOGRAM, SCREENING 06/25/2024 Bone Density 06/25/2024 Ultrasound : Carotid Doppler Bilateral 0 06/25/2024 VON WILLEBRAND FACTOR ACTIVITY Factor V Leiden Level 08/28/2024 Cologuard 07/25/2024 LIPID PANEL, STANDARD 10/25/2023 LIPID PANEL, STANDARD 05/03/2023 COMPREHENSIVE METABOLIC PANEL 10/25/2023 CBC (INCLUDES DIFF/PLT) 10/25/2023 VITAMIN D,25-OH,TOTAL,IA 05/03/2023 US Soft Tissue Head Neck 08/28/2024 [facility] Holter 08/28/2024 Next Appt Details Provider Name:CHARLI LEIGHANN, 11:00:00 AM, [address], [place], [address], Insurance Providers Payer Name Payer Address Payer Phone Subscriber Number Group Number Insured Name Patient Relationship to Insured Coverage Start Date Coverage End Date [employer] Preferred [address] [place] [address] [id number] Petty Hair Self - patient is the insured 2 Medical (General) History Medical History History ICD Code Hypothyroidism, unspecified E03.9 Retinal telangiectasis, unspecified eye H35.079 Cataract extraction status, unspecified eye Z98.49 Fecal smearing R15.1 Rosacea, unspecified L71.9 Osteoporosis M81.0 Surgical History Surgery Date(Month/Year) Breast reduction 02/2020 Cataract 09/2016 proximal interphalangeal joint fusion Partial thyroidectomy 2007 c section 1996 c section 1979 appendectomy 1964 abdominal surgery- non cancerous tumor 1 990
--- OUTSIDE RECORDS SUMMARY | 2024-10-17 13:03 | XMS_ITS | Clinical Summary ---
Author Organization [facility] Address [address] [place] [address] Care Team Providers Care Straw Hat Presser Name Role Phone Jaxon Crain MD Primary Care Provider [phone] Allergies Active Allergy Reactions Criticality Noted Date Comments Shellfish Allergy 07/27/2016 Medications Medication Sig Dispensed Refills Start Date End Date Status levothyroxine (SYNTHROID, LEVOXYL) tablet 50 mcg Take 50 mcg by mouth. 0 07/06/2018 Active Kzlwakfhbhu-Fmuplbzhu-O it C-Mn (GLUCOSAMINE CHONDROITIN COMPLX) CAPS Take by mouth. 0 Active Cholecalciferol (VITAMIN D3) 25 MCG (1000 UT) CAPS Take 1,000 Units by mouth. 0 07/04/2011 Active Active Problems Problem Noted Date Diagnosed Date 2-part displaced fracture of surgical neck of left humerus, initial encounter for closed fracture 02/15/2019 Social History Tobacco Use Types Packs/Day Years Used Date Smoking Tobacco: Never Assessed Sex and Gender Information Value Date Recorded Sex Assigned at Not on file Gender Identity Not on file Sexual Orientation Not on file Last Filed Vital Signs Vital Sign Reading Time Taken Comments Blood Pressure - - Pulse - - Temperature - - Respiratory Rate - - Oxygen Saturation - - Inhaled Oxygen Concentration - - Weight 79.8 kg (176 lb) 02/15/2019 2:47 PM EST Height 157.5 cm (5' 2 ) 02/15/2019 2:47 PM EST Body Mass Index 32.19 02/15/2019 2:47 PM EST Plan of Treatment Health Maintenance Due Date Last Done Comments Hepatitis C Screening 1950 COVID-19 Vaccine (#1) 06/12/1951 Depression Screening 1962 BMI Counseling 1968 Preventative Health Evaluation 1968 DTap / Tdap / Td (1 - Tdap) 1969 Colon Cancer Screening (Colonoscopy) 12/12/1995 Breast Cancer Screening (Mammogram) 2000 Shingrix-Zoster Vaccine (1 of 2) 2000 Fall Risk Assessment 12/12/2015 Osteoporosis Screening (DEXA Scan) 12/12/2015 Pneumococcal Vaccine (1 of 1 - PCV) 12/12/2015 Influenza Vaccine (#1) 2024 11/19/2007 RSV Adult > 60+ Yrs or Pregn ant (1 - 1-dose 75+ series) 2025 Hepatitis B Vaccines Aged Out No long er eligible based on patient's age to complete this topic RSV Ped < 20 months Aged Out No longe r eligible based on patient's age to complete this topic Care Teams Straw Hat Presser Relationship Specialty Start Date End Date Jaxon Crain MD [address] [place] [address] PCP - General Internal Medicine 02/12/19
== END 2024-10-17 14:15 | disposition home or self-care (01) ==
LOC: HO.HMGAL 11:19
PROVIDERS: PCP Internal Medicine; Visit Provider Registered Nurse Emergency
DX: J30.89 Other allergic rhinitis (principal)
CPT/HCPCS: 95117; 95165

== ENCOUNTER 2024-11-20 08:35 | Outpatient (AMB) | payer MEDICARE, SELFPAY ==
--- OUTSIDE RECORDS SUMMARY | 2024-11-15 05:10 | XMS_ITS ---
Author Organization [facility] [address] Address [address] [place] [address] Care Team Providers Care Soft Hat Binder Name Role Phone GURPREET SILVA Primary Care Provider [phone] CHARLI LAWTON Unavailable [phone] REASON FOR VISIT [facility] OCT 2024 Encounters Encounter Location Date Provider Diagnosis [facility] [address] [facility] [address] [address] 11/15/2024 CHARLI LAWTON Vitamin D deficiency E55.9 ; Hypothyroidism, unspecified E03.9 ; Hyperlipidemia, unspecified hyperlipidemia type E78.5 ; Adult general medical exam Z00.00 and Submandibular gland swelling R60.0 Assessments Encounter Date Diagnosis (ICD Code) Assessment Notes Treatment Notes Treatment Clinical Notes Section Notes 11/15/2024 Vitamin D deficiency (ICD-10 - E55.9) 11/15/2024 Hypothyroidism, unspecified (ICD-10 - E03.9) 11/15/2024 Hyperlipidemia, unspecified hyperlipidemia type (ICD-10 - E78.5) 11/15/2024 Adult general medical exam (ICD-10 - Z00.00) 11/15/2024 Submandibular gland swelling (ICD-10 - R60.0) Plan Of Treatment Pending Test Test Name Order Date LIPID PANEL, STANDARD 11/15/2024 COMPREHENSIVE METABOLIC PANEL 11/15/2024 CBC (INCLUDES DIFF/PLT) 11/15/2024 URINALYSIS, COMPLETE 11/15/2024 VITAMIN B12 11/15/2024 TSH 11/15/2024 VITAMIN D,25-OH,TOTAL,IA 11/15/2024 US Soft Tissue Head Neck 11/15/2024 Next Appt Details Provider Name:CHARLI LAWTON, 11:00:00 AM, [address], [place], [address], Progress Notes * Milena HAIROB:1950 (73 yo F)Acc No.[id number]:11/15/2024 Patient: Petty PANG :1950 A ge:73 Y S ex:Female Address:[address] [place] [id number] Subjective: * Chief Complaints: * C CM OCT 2024 * Medical History: * Surgical History: * Hospitalization/Major Diagno stic Procedure: * Medications: Objective: * Vitals: * Physical Examination: Assessment: * Assessment: 1. V itamin D deficiency - E55.9 2 . H ypothyroidism, unspecified - E03.9? 3. H yperlipidemia, unspecified hyperlipidemia type - E78.5 4 .?Adult general medical exam - Z00.00 5 . S ubmandibular gland swelling - R60.0 Plan: * Treatment: 2. H ypothyroidism, unspecified L AB: LIPID PANEL, STANDARD L AB: COMPREHENSIVE METABOLIC PANEL L AB: CBC (INCLUDES DIFF/PLT) L AB: URINALYSIS, COMPLETE L AB: VITAMIN B12 L AB: TSH L AB: VITAMIN D,25-OH,TOTAL,IA 3. H yperlipidemia, unspecified hyperlipidemia type L AB: LIPID PANEL, STANDARD L AB: COMPREHENSIVE METABOLIC PANEL L AB: CBC (INCLUDES DIFF/PLT) L AB: URINALYSIS, COMPLETE L AB: VITAMIN B12 L AB: TSH L AB: VITAMIN D,25-OH,TOTAL,IA 4. A dult general medical exam L AB: LIPID PANEL, STANDARD L AB: COMPREHENSIVE METABOLIC PANEL L AB: CBC (INCLUDES DIFF/PLT) L AB: URINALYSIS, COMPLETE L AB: VITAMIN B12 L AB: TSH L AB: VITAMIN D,25-OH,TOTAL,IA 5. S ubmandibular gland swelling I maging: US Soft Tissue Head Neck * Procedure Codes: * true * Date: Generated for Printi ng/Faxing/eTransmitting on: 0 11/20/2024 09:38 AM EDT
--- OUTSIDE RECORDS SUMMARY | 2024-11-20 09:37 | XMS_ITS | Clinical Summary ---
Author Organization [facility] Address [address] [facility] [place] [address] Phone Care Team Providers Care Medical Assembler Name Role Phone Jong Zarco MD Primary Care Provider [phone] Allergies Active Allergy Reactions Criticality Noted Date Comments Fluorescein 05/06/2024 Iodine Anaphylaxis High 07/15/2024 Other 07/27/2016 Seasonal, tree pollen, grass pollen Oxycodone 01/11/2024 Shellfish Derived 07/27/2016 Medications magnesium oxide 400 mg magnesium capsule Take by mouth 1 (one) time each day at the same time. Active BIOTIN ORAL Take 10 mg by mouth 1 (one) time each day. Active omega 7-xcq-txj-fish oil (Fish OiL) 1,000 (120-180) mg capsule [...] Encounters Date Type Department Care Team Description 11/06/2024 10:13 AM EDT - 11/06/2024 11:59 PM EDT [facility] [address] [address] Breast cancer screening by mammogram Discharge Disposition: Home or Self Care 09/09/2024 1:39 PM EDT - 09/09/2024 11:59 PM EDT Hospital Encounter [facility] Neurodiagnostic [address] [place] [address] Finger numbness Discharge Disposition: Home or Self Care 09/03/2024 2:47 PM EDT - 09/03/2024 11:59 PM EDT Hospital Encounter [facility] Ultrasound [address] [place] [address] Localized edema Discharge Disposition: Home or Self Care from Last 3 Months Surgical History Surgery Date Site/Laterality Comments SECTION PROCEDURE: HISTORICAL DELIVERY; COMMENT: 2 OTHER SURGICAL HISTORY 1991 PROCEDURE: HISTORY OTHER; COMMENT: abdominal tumor removed, fibrous myolipoma APPENDECTOMY PROCEDURE: HISTORICAL APPENDECTOMY; COMMENT: age 13, perforated OTHER SURGICAL HISTORY PROCEDURE: HISTORY OTHER; COMMENT: benign skin lesions removed SECTION PROCEDURE: TX DELIVERY ONLY; COMMENT: x 2 APPENDECTOMY PROCEDURE: TX APPENDECTOMY TX BREAST REDUCTION 02/28/2020 - 02/26/2021 Bilateral Family History Medical History Relation Name Comments [...] = 0.6 oz pur e alcohol) Comments No Sex and Gender Information Value Date Recorded Sex Assigned at Female 08/29/2024 11:10 AM EDT Legal Sex Female 4:05 AM EST Gender Identity Female 08/29/2024 11:10 AM EDT Sexual Orientation Straight 08/29/2024 11 :10 AM EDT Obstetrics History Para Term AB IAB SAB Ectopic Multiple Livin g Live Births 2 Last Filed Vital Signs Vital Sign Reading Time Taken Comments Blood Pressure 110/74 11/17/2022 2:21 PM EDT Sit ting L Arm Pulse - - Temperature - - Respiratory Rate - - Oxygen Saturation - - Inhaled Oxygen Concentration - - Weight 61.7 kg (136 lb) 11/06/2024 10:22 AM EDT Height 154.9 cm (5' 1 ) 11/06/2024 10:22 AM EDT Body Mass Index 25.7 11/06/2024 10:22 AM EDT Plan of Treatment Upcoming Encounters Date Type Department Care Team (Late st Contact Info) Description 01/15/2025 1:30 PM EST Office Visit Vascular Surgery - [place] [address] [place] [address] Maral Allison MD [address] [place] [phone] Health Maintenance Due Date Last Done Comments COVID-19 Vaccine (#1) 12/12/1955 DTaP,Tdap,and Td Vaccines (1 - Tdap) 1969 Pneumococcal Vaccine: 50+ Years (1 of 2 - PCV) 1969 Zoster Vaccines (1 of 2) 10/06/2011 08/11/2011 Colorectal Cancer Screening: Colonoscopy 01/30/2022 Falls Risk Assessment 01/30/2022 Hepatitis C Screening 01/30/2022 Medicare Annual Wellness Visit 01/30/2022 Social Influencers of Health Screening 01/30/2022 Depression Screening 02/28/2024 Influenza Vaccine (#1) 2024 11/19/2007 Hypertension/CHF/CAD Annual BMP Blood Test 05/16/2025 05/16/2024 RSV Immunization Adult Patients (1 - 1-dose 75+ series) 2025 Breast Cancer Screening 11/06/2026 11/07/19 25, 02/02/2022, 01/28/2021, Additional history exists Cholesterol Screening (Lipid Panel) 05/16/2029 05/16/2024 Osteoporosis [...] Procedure Name Priority Date/Time Associated Diagnosis Comments MG MAMMO DIGITAL SCREENING W DARIN BILAT Routine 11/06/2024 10:48 AM EDT Breast cancer screening by mammogram EMG 1 LIMB Routine 09/09/2024 1:44 PM [...] EDT Routine general medical examination at a [facility] care facility from Last 3 Months or Most Recently Relevant to Health Maintenance Results * MG Mammo Digital Screening w Darin bilat (11/06/2024 10:48 AM EDT) Anatomical Region Laterality Modality Breast Bilateral Mammography 11/06/2024 11:0 2 AM EDT Impressions 11/06/2024 11:07 AM EDT No mammographic evidence of malignancy. A negative mammogram in the presence of a clinically suspicious palpable abnormality does not preclude the possibility of malignancy or alter the indications for biopsy. PQRI CPT II 3341F Code 85191, 22063 PQRI 225 CPT II 7025F TISSUE DENSITY: The breasts are almost entirely fatty. (BI-RADS Category A) IMPRESSION: Benign. BI-RADS CATEGORY: 1 - NEGATIVE RECOMMENDATION: Screening bilateral mammogram is recommended in 1 year. Mammo Location: [facility], [facility], [address] [place] [address] -------- FINAL REPORT -------- Dictated By: Nicolas Owusu Dictated Date: 11/06/2024 11:02 ET Assigned Physician: Nicolas Owusu Reviewed and Electronically Signed By: Nicolas Owusu Signed Date: 11/06/2024 11:07 ET Workstation ID: [id number] Transcribed By: Self Edit Transcribed Date: 11/06/2024 11:02 ET Narrative 11/06/2024 11:07 AM EDT CLINICAL: The patient is a 73 years Female presenting for routine screening mammography. The patient has undergone previous bilateral reduction mammoplasty. COMPARISON: Most recently 02/02/2022 and most remotely 06/29/2016. TECHNIQUE: Full-field digital mammography of the breasts bilaterally consisting of tomosynthesis in MLO and CC projection is performed in the GraphSQLe 2000-D unit. Computer aided detection utilizing the iCAD system was utilized. FINDINGS: The breasts are again seen to be largely fatty replaced. There is no cluster of microcalcifications, mass, or area of architectural distortion. There is no skin thickening or nipple retraction. Procedure Note Nicolas Owusu MD - 11/06/2024 CLINICAL: The patient is a 73 years Female presenting for routinescreening mammography. The patient has undergone previous bilateralreduction mammoplasty. COMPARISON: Most recently 02/02/2022 and most remotely 06/29/2016. TECHNIQUE: Full-field digital mammography of the breasts bilaterallyconsisting of tomosynthesis in MLO and CC projection is performed in theLumoidographe 2000-D unit. Computer aided detection utilizing the AwesomenessTVDsystem was utilized. FINDINGS: The breasts are again seen to be largely fatty replaced. Thereis no cluster of microcalcifications, mass, or area of architecturaldistortion. There is no skin thickening or nipple retraction. IMPRESSION: No mammographic evidence of malignancy. A negative mammogram in the presence of a clinically suspicious palpableabnormality does not preclude the possibility of malignancy or alter theindications for biopsy. PQRI CPT II 3341F Code 11624, 32001 PQRI 225 CPT II 7025F TISSUE DENSITY: The breasts are almost entirely fatty. (BI-RADS CategoryA) IMPRESSION: Benign. BI-RADS CATEGORY: 1 - NEGATIVE RECOMMENDATION: Screening bilateral mammogram is recommended in 1 year. Mammo Location: [facility], [facility], [address] [place] [id number] -------- FINAL REPORT -------- Dictated By: Nicolas Owusu Dictated Date: 11/06/2024 11:02 ET Assigned Physician: Nicolas Owusu Reviewed and Electronically Signed By: Nicolas Owusu Signed Date: 11/06/2024 11:07 ET Workstation ID: [id number] Transcribed By: Self Edit Transcribed Date: 11/06/2024 11:02 ET us [facility]NSON IMG BI PROCEDURES Final Result * EMG one limb (09/09/2024 1:44 PM EDT) Narrative Panfilo Napoles MD - 09/09/2024 2:29 PM EDT Images from the original result were not included. [facility] [address] [place] [address] Electromyograph Report Date of service: 09/09/24 Patient [...] note were not included. [facility] [address] [place] [address] Electromyograph Report Date of service: 09/09/24 Patient [...] Dictated Date: 09/06/2024 07:10 ET Assigned Physician: Arnodl Butterfield Reviewed and Electronically Signed By: Arnold Butterfield Signed Date: 09/06/2024 07:16 ET Workstation ID: [id number] Transcribed By: Self Edit Transcribed Date: 09/06/2024 [...] Signed Date: 09/06/2024 07:16 ET Workstation ID: [id number] Transcribed By: Self Edit Transcribed Date: 09/06/2024 07:10 ET Sheba JOHNSON IMEdin US PROCEDURES Final Result * Factor V leiden (08/29/2024 9:30 AM EDT) [facility] Factor V Leiden Mutation Negative 09/02/2024 3:11 PM EDT [facility] Comment: The pathogenic F5 Leiden variant [...] DNA (2.5 ng/PCR reaction). Test performed at [facility], [address] [place] [address] Michelle Cook MD, PhD - Treasury Director Blood Venous blood specimen / Unknown Venipuncture / Unknown 08/29/2024 9:30 AM EDT 08/29/2024 9:30 AM EDT [facility] LAB MOLECULAR DIAGNOSTICS ORDERA BLES Final Result Performing Organization Address [facility] Co de Phone Number [facility] [address] [place] [address] * Von Willebrand factor activity (08/29/2024 9:30 AM EDT) Pathologist [facility] von Willebrand Factor Activity Percent 170 51 - 215 % 09/03/2024 8:27 PM EDT [facility] Comment: REFERENCE INTERVAL: von Willebrand Factor, Activity (RCF) Access complete set of age- and/or gender-specific reference intervals for this test in the [facility] Directory ([facility]). Performed By: [facility] [address] [place] [id number] Cane Weigher Helper: Andrez Mike MD, PhD CLIA Number: [id number] Blood Venous blood specimen / Unknown Venipuncture / Unknown 08/29/2024 9:30 AM EDT 08/29/2024 9:30 AM EDT [facility]NS[facility] LAB BLOOD ORDERABLES Final Resul t Performing Organization Address [facility]/ZIP Co de Phone Number [facility] [address] [place] [address] * BD Bone Density DXA Axial Skeleton [...] probability of hip fracture of 10.8%. Code 77616 -------- FINAL REPORT -------- Dictated By: Nicolas Owusu Dictated Date: 08/16/2024 08:28 ET Assigned Physician: Nicolas Owusu Reviewed and Electronically Signed By: Nicolas Ouwsu Signed Date: 08/16/2024 08:29 ET Workstation ID: [id number] Transcribed By: Self Edit Transcribed Date: 08/16/2024 [...] density of the femurs bilaterally is 0.660 gm/ao4vcuxv is 66% of that of young normals [...] probability of hip fracture of 10.8%. Code 57302 -------- FINAL REPORT -------- Dictated By: Nicolas Owusu Dictated Date: 08/16/2024 08:28 ET Assigned Physician: Nicolas Owusu Reviewed and Electronically Signed By: Nicolas Owusu Signed Date: 08/16/2024 08:29 ET Workstation ID: [id number] Transcribed By: Self Edit Transcribed Date: 08/16/2024 08:28 ET [facility] JOHNSON [facility] DXA PROCEDURES Final Result * (ABNORMAL) Lipid panel with reflex to direct LDL (05/16/2024 9:20 AM EDT) [facility] Cholesterol 223(H) 0 - 200 mg/dL LAB CHEMISTRY METHOD 05/16/2024 2:19 PM EDT [facility] Triglycerides 58 0 - 150 mg/dL LAB CHEMISTRY METHOD 05/16/2024 2:19 PM EDT [facility] HDL 93 >=40 mg/dL LAB CHEMISTRY METHOD 05/16/2024 2:19 PM EDT [facility] LDL Calculated 118(H) 0 - 100 mg/dL LAB CHEMISTRY METHOD 05/16/2024 2:19 PM EDT [facility] VLDL Cholesterol Fredrick 11.6 mg/dL LAB CHEMISTRY METHOD 05/16/2024 2:19 PM EDT [facility] Non HDL Chol. (LDL+VLDL) 130 <145 mg/dL LAB CHEMISTRY METHOD 05/16/2024 2:19 PM EDT [facility] Chol/HDL Ratio 2.4 0.0 - 4.4 LAB CHEMISTRY METHOD 05/16/2024 2:19 PM EDT [facility] Blood Venous blood specimen / Unknown Venipuncture / Unknown 05/16/2024 9:20 AM EDT 05/16/2024 9:20 AM EDT us Jong Zarco MD LAB BLOOD ORDERABLES Final Resul t [facility] [address] [place] [address], * Comprehensive metabolic panel (05/16/2024 9:20 AM EDT) Sodium 138 133 - 145 mmol/L LAB CHEMISTRY METHOD 05/16/2024 2:14 PM EDT [facility] Potassium 4.6 3.5 - 5.5 mmol/L LAB CHEMISTRY METHOD 05/16/2024 2:14 PM EDT [facility] Chloride 104 96 - 110 mmol/L LAB CHEMISTRY METHOD 05/16/2024 2:14 PM EDT [facility] CO2 28 21 - 32 mmol/L LAB CHEMISTRY METHOD 05/16/2024 2:14 PM [facility] Anion Gap 6 3 - 11 LAB CHEMISTRY METHOD 05/16/2024 2:14 PM [facility] Glucose 99 70 - 100 mg/dL LAB CHEMISTRY METHOD 05/16/2024 2:14 PM [facility] BUN 16 5 - 25 mg/dL LAB CHEMISTRY METHOD 05/16/2024 2:14 PM [facility] Creatinine 0.56 0.50 - 1.10 mg/dL LAB CHEMISTRY METHOD 05/16/2024 2:14 PM [facility] eGFR 97 >=60 mL/min/1. 73m2 LAB CHEMISTRY METHOD 05/16/2024 2:14 PM [facility] Comment:Calculation based on the Chronic Kidney Disease Epidemiology Collaboration (CKD-EPI) equation refit without adjustment for race. BUN/Creatinine Ratio 28.6 LAB CHEMISTRY METHOD 05/16/2024 2:14 PM [facility] Calcium 9.6 8.5 - 10.5 mg/dL LAB CHEMISTRY METHOD 05/16/2024 2:14 PM [facility] AST (SGOT) 14 10 - 42 unit/L LAB CHEMISTRY METHOD 05/16/2024 2:14 PM [facility] ALT (SGPT) 18 10 - 60 unit/L LAB CHEMISTRY METHOD 05/16/2024 2:14 PM [facility] Alkaline Phosphatase 82 42 - 121 unit/L LAB CHEMISTRY METHOD 05/16/2024 2:14 PM [facility] Total Protein 7.3 6.0 - 8.0 g/dL LAB CHEMISTRY METHOD 05/16/2024 2:14 PM [facility] Albumin 3.9 3.2 - 5.0 g/dL LAB CHEMISTRY METHOD 05/16/2024 2:14 PM [facility] Total Bilirubin 0.5 0.0 - 1.4 mg/dL LAB CHEMISTRY METHOD 05/16/2024 2:14 PM EDT [facility] Blood Venous blood specimen / Unknown Venipuncture / Unknown 05/16/2024 9:20 AM EDT 05/16/2024 9:20 AM EDT Jong Zarco MD LAB BLOOD ORDERABLES Final Resul t [facility] [address] [place] [address], from Last 3 Months or Most Recently Relevant to Health Maintenance Insurance [employer] Care Teams Medical Assembler Relationship Specialty Start Date End Date Jong Zarco MD [address] [place] [address] PCP - General 11/11/22
--- OUTSIDE RECORDS SUMMARY | 2024-11-20 09:38 | XMS_ITS | Patient Health Record ---
Author Organization [facility] Address [address] [place] [address] Care Team Providers Care Race Car Driver Name Role Phone SILVA, MAHIJOSE Primary Care Provider CHARLI LAWTON [phone] Allergies Allergen (clinical drug ingredient) Drug/Non Drug Allergy documented on EMR Reaction Allergy Type Onset Date Status grass pollen (uncoded) itchy eyes sneezing runny nose Allergy Active tree polle (uncoded) itchy eyes, sneezing, runny nose Allergy Active Iodine Anaphylactic shock Drug Allergy Active Shellfish (FN) Shellfish-derived Products flushed, hot Drug Allergy Active Results Component Value Reference Range Notes MG MAMMO DIGITAL SCREENING W ALY BILAT Reviewed date:11/06/2024 01:29:18 PM Interpretation: Performing Lab: Notes/Report: Note See Note [facility], a member of [facility] Patient Name: PETTY HAIR Date of : 1950 Reason for Exam: breast screening by mammogram Exam Date: 11/06/2024 [id number] EST Report Status: Final Ordering Provider: CHARLI LAWTON PCP: GURPREET SILVA CLINICAL: The patien t is a 73 years Female presenting for routine screening mammography. The patient has undergone previous bilateral reduction mammoplasty. COMPARISON: Most recently 02/02/2022 and most remotely 06/29/2016. TECHNIQUE: Full-fiel d digital mammography of the breasts bilaterally consisting of tomosynthesis in MLO and CC projection is performed in the [employer]he 2000-D unit. Computer aided detection utilizing the iCAD system was utilized. FINDINGS: The breast s are again seen to be largely fatty [...] for biopsy. PQRI CPT II 3341F Code 88950, 59662 PQRI 225 CPT II 7025F TISSUE DENSITY: The breasts are almost entirely fatty. (BI-RADS Category A) IMPRESSION: Benign. BI-RADS CATEGORY: 1 - NEGATIVE RECOMMENDATION: Screening bilateral mammogram is recommended in 1 year. Mammo Location: [facility], [address] [place] [address] -------- FINAL REPOR T -------- Dictated By: Nicolas Owusu Dictated Date: 11/06/2024 11:02 ET Assigned Physician: Nicolas Owusu Reviewed and Electronically Signed By: Nicolas Owusu Signed Date: 025 11:07 ET Workstation ID: [id number] Transcribed By: Self Edit Transcribed Date: 11/06/2024 11:02 ET EKG Reviewed date:06/25/2024 01:07:46 PM Interpretation: Performing Lab: Notes/Report: ECGDiastolicBP 80 ECGHr 60 ECGPRInterval 172 ECGPWaveAxis 47 ECGQRSDuration 88 ECGQrsWaveAxis -8 ECGQTcInterval 444 ECGQTInterval 444 ECGSystolicBP 124 ECGTWaveAxis 22 RR_DiastolicBP 0 RR_MaxRRInterval 0 RR_MeanHR 0 RR_MeanRRInterval 0 RR_MinRRInterval 0 RR_NumBeats 0 RR_NumNormalBeats 0 RR_SystolicBP 0 US HEAD NECK SOFT TISSUE Reviewed date:09/06/2024 12:10:09 PM Interpretation: Performing Lab: Notes/Report: Note See Note [facility], a member of [employer] Patient Name: PETTY HAIR Date of : 1950 Reason for Exam: submandibular gland swelling Exam Date: 09/03/2024 [id number] EST Report Status: Final Ordering Provider: CHARLI [...] Signed Date: 025 07:16 ET Workstation ID: [id number] Transcribed By: Self Edit Transcribed Date: 09/06/2024 07:10 ET VON WILLEBRAND FACTOR ACTIVI TY Reviewed date:09/04/2024 08:27:33 AM Interpretation: Performing Lab: Notes/Report: von Willebrand Factor Activity Percent 170 51-215 % REFERENCE INTERVAL: von Willebrand Factor, Activity (RCF) Access complete set of age- and/or gender-specific reference intervals for this test in the [employer] [facility] Test Directory ([employer]). Performed By: [facility] [address] [place] [id number] Plasterer Rough: Andrez Mike MD, PhD CLIA Number: [id number] FACTOR V LEIDEN Reviewed date:09/05/2024 03:26:59 PM [...] DNA (2.5 ng/PCR reaction). Test performed at [place] [id number] Michelle Cook MD, PhD - Injection Molding Process Technician BD BONE DENSITY DXA AXIAL SK [facility] Reviewed date:08/16/2024 01:14:54 PM Interpretation: Performing Lab: Notes/Report: Note See Note [facility], a member of [employer] Patient Name: PETTY HAIR Date of : 1950 Reason for Exam: OSTEOPOROSIS Exam Date: 08/15/2024 [id number] EST Report Status: Final Ordering Provider: CHARLI [...] is diagnostic of osteoporosis. IMPRESSION: 1. Osteoporosis. The re has been a decrease of 6.1% in bone mineral density in the lumbar spine since the prior examination of 02/02/2022. There has been a decrease of 14.2% in bone mineral density in the right femur and a decrease of 19.1% in bone mineral density in the left femur. 2. FRAX analysis yie lds a 10-year probability of major osteoporotic fracture of 30.0% and a 10-year probability of hip fracture of 10.8%. Code 42821 -------- FINAL REPOR T -------- Dictated By: Nicolas Owusu Dictated Date: 08/16/2024 08:28 ET Assigned Physician: Nicolas Owusu Reviewed and Electronically Signed By: Nicolas Owusu Signed Date: 025 08:29 ET Workstation ID: [id number] Transcribed By: Self Edit Transcribed Date: 08/16/2024 08:28 ET THYROID STIMULATING HORMONE WITH REFLEX TO FREE T4 AND FREE T3 Reviewed date:07/18/2024 09:09:31 AM Interpretation: Performing Lab: Notes/Report: TSH 2.27 0.40-4.00 mcIU/mL US HEAD NECK SOFT TISSUE Reviewed date:06/24/2024 02:25:13 PM Interpretation: Performing Lab: Notes/Report: Note See Note [facility], a member of [employer] Patient Name: PETTY HAIR Date of : 1950 Reason for Exam: malignant neoplasm Exam Date: 06/19/2024 [id number] EST Report Status: Final Ordering Provider: JOSE [...] recommended. 2. Stable right [place]ide[place] ([id number]) -------- FINAL REPOR T -------- Dictated By: Unique Pringle i Dictated Date: 06/19/2024 13:48 ET Assigned Physician: Unique Garcia Reviewed and Electronically Signed By: Unique Garcia Signed Date: 025 13:54 ET Workstation ID: [id number] Transcribed By: Self Edit Transcribed Date: 06/19/2024 13:48 ET COMPREHENSIVE METABOLIC PANE L Reviewed date:05/17/2024 11:50:13 [...] K/mcL Immature Granulocytes Absolute 0.01 0.00-0.03 K/mcL Reason For Referral Reason [facility] 1 Colon cancer screeni ng (Z12.11) Referral Organization [facility] [address] Referring Provider First Name CHARLI Referring Provider Last Name LEIGHANN Referring Provider Speciality Internal M edicine Referred Provider MUSLU, Halim Referred Provider Specialty Gastroentero logy General Notes AGUILAR WILLOUGHBY 0 07/05/2024 09:18:02 AM >[address] [address], [phone], [phone] Clinical Notes patient does not wan t colonosscopy Referral Priority Routine Reason [facility] Diagnosis 1 Stricture of artery (I77.1) Referral Organization [facility] Referring Provider First Name CHARLI Referring Provider Last Name LEIGHANN Referring Provider Speciality Internal edicine Referred Provider Specialty Vascular Shekhar romulo General Notes BUDPUMAAGUILAR WARREN 0 08/12/2024 09:56:06 AM >information sent over to [facility] with formerly [facility], [facility] and carotid, p- , [phone] Clinical Notes Trisha Adkins 01:58:11 PM > refaxedJed Redena 08/26/2024 03:47:27 PM > Not contracted with insurance, Shelly Duncan 08/28/2024 12:02:02 PM > [facility] , [phone], f. [phone], Trisha Adkins 09/05/2024 12:57:34 PM > The office confirmed receipt of referral. They will be calling the patient today for scheduling Referral Priority Routine Reason [facility] Diagnosis 1 Ventricular tachycar rebecca (I47.20) Diagnosis 2 Atrial tachycardia ( I47.19) Diagnosis 3 Irregular heartbeat (I49.9) Referral Organization [facility] Referring Provider First Name CHARLI Referring Provider Last Name LEIGHANN Referring Provider [facility] Internal edicine Referred Provider Specialty Cardiology General Notes RENETTAAGUILAR WARREN 0 09/09/2024 04:53:16 PM >Information with Holter faxed over to [facility] , , Clinical Notes Ashwin Cesar 02:38:59 PM > lvm to office. I called pt and she confirmed she was already seen Referral Priority Routine Reason [facility] Diagnosis 1 Right carpal tunnel syndrome (G56.01) Referral Organization [facility] [address] Referring Provider First Name CHARLI Referring Provider Last Name LEIGHANN Referring Provider Speciality Internal M edicine Referred Provider Specialty Orthopedic S urgery General Notes AGUILAR WILLOUGHBY 0 09/11/2024 03:59:32 PM >Information faxed over to [facility] with [facility] and Forms, p- , [phone] Referral Priority Routine Medications Medication SIG (Take, [...] Notes Are you a nonsmoker Section Notes: retired 2 boys Retired- works taking care [...] Status W/U Status Risk Notes Problem Hypothyroidism (46266386) Hypothyroidism, unspecified (E03.9) Active confirmed Problem 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, 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 Problem Stricture of artery (70133009) Stricture of artery (I77.1) Active confirmed Problem Family history of ischemic heart disease (134521593) Family history of ischemic heart disease and other diseases of the circulatory system (Z82.49) Active confirmed Problem Hyperlipidaemia (59250092) Hyperlipidemia, unspecified hyperlipidemia type (E78.5) Active confirmed Problem Hemorrhoids without complication (70023000) Hemorrhoids, unspecified hemorrhoid type (K64.9) Active confirmed Problem Rosacea (872323597) Rosacea (L71.9) Active confirmed Problem Vitamin D deficiency (95208292) Vitamin D deficiency (E55.9) Active confirmed Problem Age-related osteoporosis (020915844) Osteoporosis, unspecified osteoporosis type, unspecified pathological fracture presence (M81.0) Active confirmed Problem Numbness (86111879) Numbness (R20.0) Active confirmed Problem Obesity (465328253) Obesity (BMI 30-39.9) (E66.9) Active confirmed Problem Incontinence of feces (87607089) Incontinence of feces, unspecified fecal incontinence type (R15.9) Active confirmed Problem Cardiac arrhythmia (583698174) Irregular heartbeat (I49.9) Active confirmed Problem Essential hypertension (43350608) High blood pressure determined by examination (I10) Active confirmed Problem Lipid screening (430656242) Lipid screening (Z13.220) Active confirmed Problem Osteoporosis (30092237) Osteoporosis (M81.0) Active confirmed Problem Carpal tunnel syndrome (92579185) Right carpal tunnel syndrome (G56.01) Active confirmed Problem Dizzy spells (211741901) Dizzy spells (R42) Active confirmed Problem Skin sensation disturbance (17680174) Finger numbness (R20.0) Active confirmed Vital Signs Heart Rate 69 /min 09/25/2024 Oximetry 98 % 09/25/2024 Blood pressure diastolic 78 mm Hg 09/25/2024 Height 61 in 09/25/2024 Blood pressure systolic 128 mm Hg 09/25/2024 Weight 133.4 lbs 09/25/2024 BMI 25.2 kg/m2 09/25/2024 Encounters Encounter Location Date Provider Diagnosis [facility] [address] [place], [place] 06/25/2024 CHARLI LEIGHANN Encounter for genera l adult medical examination without abnormal findings Z00.00 ; Encounter for screening for depression Z13.31 ; Encounter for screening for other disorder Z13.89 ; Obesity (BMI 30-39.9) E66.9 ; Other specified counseling Z71.89 ; Retinal telangiectasis, unspecified eye H35.079 ; Vitamin D deficiency E55.9 ; Rosacea L71.9 ; Hypothyroidism, unspecified E03.9 and Headache, unspecified R51.[address] [facility] [address] [place], [place] 08/28/2024 CHARLI LEIGHANN Obesity (BMI 30-39.9 ) E66.9 ; Palpitations R00.2 ; Hypothyroidism, unspecified E03.9 ; Vitamin D deficiency E55.9 ; Rosacea L71.9 ; Headache, unspecified R51.9 ; Submandibular gland swelling R60.0 ; Genetic testing Z13.79 and Encounter for examination of blood pressure without abnormal findings Z01.[address] [facility] [address] [place], [place] 09/25/2024 CHARLI LEIGHANN Palpitations R00.2 ; Obesity (BMI 30-39.9) E66.9 ; Hypothyroidism, unspecified E03.9 ; Vitamin D deficiency E55.9 ; Rosacea L71.9 ; Headache, unspecified R51.9 ; Submandibular gland swelling R60.0 ; Genetic testing Z13.79 and Encounter for examination of blood pressure without abnormal findings Z01.30 [facility] [address] [facility] [address] [place], [place] 01/09/2024 MAHI RICARDO [facility] [address] [facility] [address] [place], [place] 02/06/2024 GURPREET SILVA [facility] [address] [facility] [address] [place], [place] 04/23/2024 MAHI R[address]ARDO [facility] [address] [place] [address] 05/31/2024 GURPREET SILVA [facility] [address] [facility] [address] [place], [place] 06/25/2024 CHARLI LEIGHANN Screening mammogram for breast cancer Z12.31 [facility] [address] [place] [address] 06/25/2024 CHARLI LEIGHANN [facility] [address] [place] [address] 07/08/2024 NIDJOSE PATELAN [facility] [address] [place] [address] 07/25/2024 GURPREET PATELAN Colon cancer screeni ng Z12.[address] [facility] [address] [place] [address] 07/25/2024 CHARLI LEIGHANN [facility] [address] [place] [address] 07/26/2024 CHARLI LEIGHANN [facility] [address] [place] [address] 08/26/2024 CHARLI LEIGHANN [facility] [address] [place] [address] 08/26/2024 GURPREET PATELAN [facility] [address] [place] [address] 09/04/2024 GURPREET PATELAN [facility] [address] [address] 09/06/2024 CHARLI LEIGHANN [facility] [address] [address] 09/09/2024 CHARLI LEIGHANN [facility] [address] [place] [address] 09/11/2024 CHARLI LEIGHANN [facility] [address] 11/15/2024 CHARLI LEIGHANN Vitamin D deficiency E55.9 ; Hypothyroidism, unspecified E03.9 ; Hyperlipidemia, unspecified hyperlipidemia type E78.5 ; Adult general medical exam Z00.00 and Submandibular gland swelling R60.0 Assessments Encounter Date Diagnosis (ICD Code) Assessment Notes Treatment Notes Treatment Clinical Notes Section Notes 06/25/2024 Encounter for general adult medical examination [...] Dictation was accomplished with the use of [employer] voice recognition software, which is prone to [...] Dictation was accomplished with the use of [employer] voice recognition software, which is prone to [...] Leiden and von Willebrand per her son's electrician substation. #Fasting: Patient states she fasts for 20 [...] Patient is to receive a follow-up through [facility] of her thyroid nodules. #Palpable lymph nodes: [...] Dictation was accomplished with the use of [employer] voice recognition software, which is prone to [...] Leiden and von Willebrand per her son's electrician substation. #Fasting: Patient states she fasts for 20 [...] Patient is to receive a follow-up through [facility] of her thyroid nodules. #Palpable lymph nodes: [...] Dictation was accomplished with the use of [employer] voice recognition software, which is prone to [...] Leiden and von Willebrand per her son's electrician substation....Fact or V Leiden and von Willebrand factor [...] is to receive a follow-up through [facility] of her thyroid nodules. #Submandibular gland prominence: [...] Dictation was accomplished with the use of [employer] voice recognition software, which is prone to [...] Leiden and von Willebrand per her son's electrician substation....Fact or V Leiden and von Willebrand factor [...] Patient is to receive a follow-up through [facility] of her thyroid nodules. #Submandibular gland prominence: [...] Dictation was accomplished with the use of [employer] voice recognition software, which is prone to medical misidentifications and grammatical errors. This are unintentional and the practitioner does try to identify and correct these, but some could still be present. Please do not hesitate to contact practitioner for clarification. 11/15/2024 Vitamin D deficiency (ICD-10 - E55.9) 11/15/2024 Hypothyroidism, unspecified (ICD-10 - E03.9) 09/25/2024 Hypothyroidism, unspecified (ICD-10 - E03.9) Petty [...] Leiden and von Willebrand per her son's electrician substation....Fact or V Leiden and von Willebrand factor [...] Patient is to receive a follow-up through [facility] of her thyroid nodules. #Submandibular gland prominence: [...] Dictation was accomplished with the use of [employer] voice recognition software, which is prone to [...] Leiden and von Willebrand per her son's electrician substation. #Fasting: Patient states she fasts for 20 [...] is to receive a follow-up through [facility] of her thyroid nodules. #Palpable lymph [...] Dictation was accomplished with the use of [employer] voice recognition software, which is prone to [...] Fall risk assessed Discussed healthcare proxy. Discussed [place] order for life sustaining treatment, end-of-life issues, [...] Dictation was accomplished with the use of [employer] voice recognition software, which is prone to medical misidentifications and grammatical errors. This are unintentional and the practitioner does try to identify and correct these, but some could still be present. Please do not hesitate to contact practitioner for clarification. 06/25/2024 Obesity (BMI 30-39.9) (ICD-10 - E66.9) [...] Fall risk assessed Discussed healthcare proxy. Discussed [place] order for life sustaining treatment, end-of-life issues, [...] Dictation was accomplished with the use of [employer] voice recognition software, which is prone to [...] Leiden and von Willebrand per her son's electrician substation. #Fasting: Patient states she fasts for 20 [...] Patient is to receive a follow-up through [facility] of her thyroid nodules. #Palpable lymph nodes: [...] Dictation was accomplished with the use of [employer] voice recognition software, which is prone to [...] Leiden and von Willebrand per her son's electrician substation....Fact or V Leiden and von Willebrand factor [...] is to receive a follow-up through [facility] of her thyroid nodules. #Submandibular gland prominence: [...] Dictation was accomplished with the use of [employer] voice recognition software, which is prone to medical misidentifications and grammatical errors. This are unintentional and the practitioner does try to identify and correct these, but some could still be present. Please do not hesitate to contact practitioner for clarification. 11/15/2024 Hyperlipidemia, unspecified hyperlipidemia type (ICD-10 - E78.5) 11/15/2024 Adult general medical exam (ICD-10 - Z00.00) 09/25/2024 Rosacea (ICD-10 - L71.9) Petty is [...] Leiden and von Willebrand per her son's electrician substation....Fact or V Leiden and von Willebrand factor [...] Patient is to receive a follow-up through [facility] of her thyroid nodules. #Submandibular gland prominence: [...] Dictation was accomplished with the use of Dragon voice recognition software, which is prone to [...] Leiden and von Willebrand per her son's electrician substation. #Fasting: Patient states she fasts for 20 [...] Patient is to receive a follow-up through [facility] of her thyroid nodules. #Palpable lymph nodes: [...] Dictation was accomplished with the use of [employer] voice recognition software, which is prone to [...] Dictation was accomplished with the use of [employer] voice recognition software, which is prone to [...] Fall risk assessed Discussed healthcare proxy. Discussed [place] order for life sustaining treatment, end-of-life issues, [...] Dictation was accomplished with the use of [employer] voice recognition software, which is prone to [...] Leiden and von Willebrand per her son's electrician substation. #Fasting: Patient states she fasts for 20 [...] Patient is to receive a follow-up through [facility] of her thyroid nodules. #Palpable lymph nodes: [...] Dictation was accomplished with the use of [employer] voice recognition software, which is prone to [...] Leiden and von Willebrand per her son's electrician substation....Fact or V Leiden and von Willebrand factor [...] Patient is to receive a follow-up through [facility] of her thyroid nodules. #Submandibular gland prominence: [...] Dictation was accomplished with the use of [employer] voice recognition software, which is prone to medical misidentifications and grammatical errors. This are unintentional and the practitioner does try to identify and correct these, but some could still be present. Please do not hesitate to contact practitioner for clarification. 11/15/2024 Submandibular gland swelling (ICD-10 - R60.0) 09/25/2024 Submandibular gland swelling (ICD-10 - R60.0) [...] Leiden and von Willebrand per her son's electrician substation....Fact or V Leiden and von Willebrand factor [...] Patient is to receive a follow-up through [facility] of her thyroid nodules. #Submandibular gland prominence: [...] Dictation was accomplished with the use of [employer] voice recognition software, which is prone to [...] Leiden and von Willebrand per her son's electrician substation. #Fasting: Patient states she fasts for 20 [...] Patient is to receive a follow-up through [facility] of her thyroid nodules. #Palpable lymph nodes: [...] Dictation was accomplished with the use of [employer] voice recognition software, which is prone to [...] Fall risk assessed Discussed healthcare proxy. Discussed [place] order for life sustaining treatment, end-of-life issues, [...] Dictation was accomplished with the use of [employer] voice recognition software, which is prone to [...] Fall risk assessed Discussed healthcare proxy. Discussed [place] order for life sustaining treatment, end-of-life issues, [...] Dictation was accomplished with the use of [employer] voice recognition software, which is prone to [...] Leiden and von Willebrand per her son's electrician substation. #Fasting: Patient states she fasts for 20 [...] Patient is to receive a follow-up through [facility] of her thyroid nodules. #Palpable lymph nodes: [...] Dictation was accomplished with the use of [employer] voice recognition software, which is prone to [...] Leiden and von Willebrand per her son's electrician substation....Fact or V Leiden and von Willebrand factor [...] is to receive a follow-up through [facility] of her thyroid nodules. #Submandibular gland prominence: [...] Dictation was accomplished with the use of [employer] voice recognition software, which is prone to [...] Leiden and von Willebrand per her son's electrician substation....Fact or V Leiden and von Willebrand factor [...] Patient is to receive a follow-up through [facility] of her thyroid nodules. #Submandibular gland prominence: [...] Dictation was accomplished with the use of [employer] voice recognition software, which is prone to medical misidentifications and grammatical errors. This are unintentional and the practitioner does try to identify and correct these, but some could still be present. Please do not hesitate to contact practitioner for clarification. 06/25/2024 Hypothyroidism, unspecified (ICD-10 - E03.9) Petty is [...] Fall risk assessed Discussed healthcare proxy. Discussed [place] order for life sustaining treatment, end-of-life issues, [...] Dictation was accomplished with the use of [employer] voice recognition software, which is prone to [...] Leiden and von Willebrand per her son's electrician substation. #Fasting: Patient states she fasts for 20 [...] Patient is to receive a follow-up through [facility] of her thyroid nodules. #Palpable lymph nodes: [...] Dictation was accomplished with the use of [employer] voice recognition software, which is prone to [...] Fall risk assessed Discussed healthcare proxy. Discussed [place] order for life sustaining treatment, end-of-life issues, [...] Dictation was accomplished with the use of [employer]utor [employer] voice recognition software, which is prone to [...] PANEL, STANDARD 10/25/2023 LIPID PANEL, STANDARD 05/03/2023 LIPID PANEL, STANDARD 11/15/2024 COMPREHENSIVE METABOLIC PANEL 11/15/2024 COMPREHENSIVE METABOLIC PANEL 10/25/2023 CBC (INCLUDES DIFF/PLT) 10/25/2023 CBC (INCLUDES DIFF/PLT) 11/15/2024 URINALYSIS, COMPLETE 11/15/2024 VITAMIN B12 11/15/2024 TSH 11/15/2024 VITAMIN D,25-OH,TOTAL,IA 11/15/2024 VITAMIN D,25-OH,TOTAL,IA 05/03/2023 US Soft Tissue Head Neck 11/15/2024 US Soft Tissue Head Neck 08/28/2024 PPC Néstor Holter 08/28/2024 Next Appt Details Provider Name:CHARLI LAWTON, 11:00:00 AM, [address], [place], [address], Insurance Providers Payer Name Payer Address Payer Phone Subscriber Number Group Number Insured Name Patient Relationship to Insured Coverage Start Date Coverage End Date [employer] Preferred [address] [place] [address] [id number] Petty Hair Self - patient is the [...]
--- OUTSIDE RECORDS SUMMARY | 2024-11-20 09:38 | XMS_ITS | Patient Health Record ---
Author Organization [facility] [place] Address [address] [facility] [address] [place] [address] Support Name Relationship Address Phone ZHANNA HAIR Guarantor Unknown [phone] Reason For Referral No Information Plan Of Treatment No Information Insurance Providers Payer Name Payer Address Payer Phone Subscriber Number Group Number Insured Name Patient Relationship to Insured Coverage Start Date Coverage End Date [employer] Preferred [address] [place] [address] [id number] ZHANNA HAIR Self - patient is the insured
--- OUTSIDE RECORDS SUMMARY | 2024-11-20 09:38 | XMS_ITS | Clinical Summary ---
Author Organization [facility] Address [address] [place] [address] Care Team Providers Care Supplier Engineer Name Role Phone Jaxon Crain MD Primary Care Provider [phone] Allergies Active Allergy Reactions Criticality Noted Date Comments Shellfish Allergy 07/27/2016 Medications Medication Sig Dispensed Refills Start Date End Date Status levothyroxine (SYNTHROID, LEVOXYL) tablet 50 mcg Take 50 mcg by mouth. 0 07/06/2018 Active Kfawgzpssjw-Inptjhyzs-T it C-Mn (GLUCOSAMINE CHONDROITIN COMPLX) CAPS Take [...] age to complete this topic Care Teams Supplier Engineer Relationship Specialty Start Date End Date Jaxon Crain MD [address] [place] [address] PCP - General Internal Medicine 02/12/19
--- OUTSIDE RECORDS SUMMARY | 2024-11-20 09:38 | XMS_ITS | Continuity of Care Document ---
Author Organization [facility] [address] [place] [address] Phone [phone] Care Team Providers Care Global Coordinator Name Role Phone Jan Rivera M.D. Care Team Information Re ceiver [phone] Jong Zarco M.D. Care Team Information Production Team Member [phone] Problems Active Problems Provider Date Hypothyroidism lAfredo Onofre M.D. Onset: Major depressive disorder Alfredo [...] SIG Qnty Indications Ordering Provider Date Vitamin [id number] (5000 Ut) Capsules Unknown [id number] Tablets Unknown Vital Signs Date Vital Result Comment 06/12/2024 11:25am BP Systolic 142 mmHg BP Diastolic 88 mmHg Heart Rate 68 /min Height 61 inches 5'1 Weight 144.12 lb BMI (Body Mass Index) 27.2 kg/m2 Results Test Acquired Date Facility Test Result H/L Range N ote TSH With Reflex To FT4 10/18/2022 [facility] Reference Lab TSH With Reflex To FT4 [...] Status Appt Cinda Farrell PA Created [address] [place] [address] Drive [address] [place] [address] [phone] Alfredo Onofre M.D. Created [address] [place] [address] Drive [address] [place] [phone] [phone]
== END 2024-11-20 08:43 | disposition home or self-care (01) ==
LOC: HO.HMGAL 08:35
PROVIDERS: PCP Internal Medicine; Visit Provider Registered Nurse Emergency
DX: J30.89 Other allergic rhinitis (principal)
CPT/HCPCS: 95117; 95165

== ENCOUNTER 2024-12-11 11:04 | Outpatient (AMB) | payer MEDICARE, SELFPAY ==
--- OUTSIDE RECORDS SUMMARY | 2024-12-11 13:41 | XMS_ITS | Continuity of Care Document ---
Author Organization [facility] [address] [facility] [address] [place] [address] Phone [phone] Care Team Providers Care Ticket Broker Name Role Phone Jan Rivera M.D. Care Team Information Re ceiver [phone] Jogn Zarco M.D. Care Team Information Manager Supply Chain Planning [phone] Problems Active Problems Provider Date Hypothyroidism Alfredo [...] SIG Qnty Indications Ordering Provider Date Vitamin [id number] (5000 Ut) Capsules Unknown [id number] Tablets Unknown Vital Signs Date Vital Result Comment 06/12/2024 11:25am BP Systolic 142 mmHg BP Diastolic 88 mmHg Heart Rate 68 /min Height 61 inches 5'1 Weight 144.12 lb BMI (Body Mass Index) 27.2 kg/m2 Results Test Acquired Date Facility Test Result H/L Range N ote TSH With Reflex To FT4 10/18/2022 [facility] Reference Lab TSH With Reflex To [...] Status Appt Cinda Farrell PA Created [address] [place] [address] Drive [address] [place] [phone] [phone] Alfredo Onofre M.D. Created [address] [place] [address] Drive [address] [place] [address] [phone]
--- OUTSIDE RECORDS SUMMARY | 2024-12-11 13:41 | XMS_ITS | Clinical Summary ---
Author Organization [facility] Address [address] [place] [address] Care Team Providers Care Pharmacy Technologist Name Role Phone Jaxon Crain MD Primary Care Provider [phone] Allergies Active Allergy Reactions Criticality Noted Date Comments Shellfish Allergy 07/27/2016 Medications Medication Sig Dispensed Refills Start Date End Date Status levothyroxine (SYNTHROID, LEVOXYL) tablet 50 mcg Take 50 mcg by mouth. 0 07/06/2018 Active Prptryfqrtt-Wcylgaikb-D it C-Mn (GLUCOSAMINE CHONDROITIN COMPLX) CAPS Take [...] age to complete this topic Care Teams Pharmacy Technologist Relationship Specialty Start Date End Date Jaxon Crain MD [address] [place] [address] PCP - General Internal Medicine 02/12/19
--- OUTSIDE RECORDS SUMMARY | 2024-12-11 13:41 | XMS_ITS | Clinical Summary ---
Author Organization [address] [facility] Address [address] [facility] [place] [address] Phone Care Team Providers Care Gluing Machine Adjuster Name Role Phone Jong Zarco MD Primary Care Provider [phone] Allergies Active Allergy Reactions Criticality Noted Date Comments Fluorescein 05/06/2024 Iodine Anaphylaxis High 07/15/2024 Other 07/27/2016 Seasonal, tree pollen, grass pollen Oxycodone 01/11/2024 Shellfish Derived 07/27/2016 Medications magnesium oxide 400 mg magnesium capsule Take by mouth 1 (one) time each day at the same time. Active BIOTIN ORAL Take 10 mg by mouth 1 (one) time each day. Active omega 0-bmj-heb-fish oil (Fish OiL) 1,000 (120-180) mg capsule [...] EDT [facility] at [address] [address] Breast cancer screening by mammogram Discharge Disposition: Home or Self Care from Last 3 Months Surgical History Surgery Date Site/Laterality Comments SECTION PROCEDURE: HISTORICAL DELIVERY; COMMENT: 2 OTHER SURGICAL HISTORY 1991 PROCEDURE: HISTORY OTHER; COMMENT: abdominal tumor removed, fibrous myolipoma APPENDECTOMY PROCEDURE: HISTORICAL APPENDECTOMY; COMMENT: age 13, perforated OTHER SURGICAL HISTORY PROCEDURE: HISTORY OTHER; COMMENT: benign skin lesions removed SECTION PROCEDURE: NE DELIVERY ONLY; COMMENT: x 2 APPENDECTOMY PROCEDURE: NE APPENDECTOMY NE BREAST REDUCTION 02/28/2020 - 02/26/2021 Bilateral Family [...] Care Team (Late st Contact Info) Description 12/25/2024 10:00 AM EDT Appointment [facility] Ultrasound [address] [place] [phone] 01/15/2025 1:30 PM EST Office Visit [facility] [address] [place] [phone] Maral Allison MD [address] [place] [phone] Health Maintenance Due Date Last Done Comments Colorectal Cancer Screening: Colonoscopy 1950 DTaP,Tdap,and Td Vaccines (1 - Tdap) 1969 Pneumococcal Vaccine: 50+ Years (1 of 1 - PCV) 2000 Zoster Vaccines (2 of 3) 10/06/2011 08/11/2011 Falls Risk Assessment 01/30/2022 Hepatitis C Screening 01/30/2022 Medicare Annual Wellness Visit 01/30/2022 Social Influencers of Health Screening 01/30/2022 Depression Screening 02/28/2024 COVID-19 Vaccine ( - season) 2024 Influenza Vaccine (#1) 2024 11/19/2007 Hypertension/CHF/CAD Annual BMP Blood Test 05/16/2025 05/16/2024 RSV Immunization Adult Patients (1 - 1-dose 75+ series) 2025 Breast Cancer Screening 11/06/2026 11/07/19, 02/02/2022, 01/28/2021, Additional history exists Cholesterol Screening [...] AM EDT Breast cancer screening by mammogram BD BONE DENSITY DXA AXIAL SKELETON Routine 08/15/2024 1:20 PM EDT Age-related osteoporosis without current pathological fracture COMPREHENSIVE METABOLIC PANEL Routine 05/16/2024 9:20 AM EDT Routine general medical examination at a health care facility LIPID PANEL WITH REFLEX TO DIRECT LDL Routine 05/16/2024 9:20 AM EDT Routine general medical examination at a health care facility from Last 3 Months or [...] for biopsy. PQRI CPT II 3341F Code 24054, 37203 PQRI 225 CPT II 7025F TISSUE DENSITY: The breasts are almost entirely fatty. (BI-RADS Category A) IMPRESSION: Benign. BI-RADS CATEGORY: 1 - NEGATIVE RECOMMENDATION: Screening bilateral mammogram is recommended in 1 year. Mammo Location: [facility], [address] [place] [address] -------- FINAL REPORT -------- Dictated By: Nicolas Owusu Dictated Date: 11/06/2024 11:02 ET Assigned Physician: Nicolas Owusu Reviewed and Electronically Signed By: Nicolas Owusu Signed Date: 11/06/2024 11:07 ET Workstation ID: [id number] Transcribed By: Self Edit Transcribed Date: 11/06/2024 11:02 ET Narrative 11/06/2024 11:07 AM EDT CLINICAL: The patient is a 73 years Female presenting for routine screening mammography. The patient has undergone previous bilateral reduction mammoplasty. COMPARISON: Most recently 02/02/2022 and most remotely 06/29/2016. TECHNIQUE: Full-field digital mammography of the breasts bilaterally consisting of tomosynthesis in MLO and CC projection is performed in the Sounday 2000-D unit. Computer aided detection utilizing the [...] MLO and CC projection is performed in theSounday 2000-D unit. Computer aided detection utilizing the iCADsystem was utilized. FINDINGS: The breasts are again [...] for biopsy. PQRI CPT II 3341F Code 66333, 46973 PQRI 225 CPT II 7025F TISSUE DENSITY: The breasts are almost entirely fatty. (BI-RADS CategoryA) IMPRESSION: Benign. BI-RADS CATEGORY: 1 - NEGATIVE RECOMMENDATION: Screening bilateral mammogram is recommended in 1 year. Mammo Location: [facility], [address] [place] [address] -------- FINAL REPORT -------- Dictated By: Nicolas Owusu Dictated Date: 11/06/2024 11:02 ET Assigned Physician: Nicolas Owusu Reviewed and Electronically Signed By: Nicolas Owusu Signed Date: 11/06/2024 11:07 ET Workstation ID: [id number] Transcribed By: Self Edit Transcribed Date: 11/06/2024 11:02 ET Sheba JOHNSON IMG BI PROCEDURES Final Result * BD Bone Density DXA Axial Skeleton [...] probability of hip fracture of 10.8%. Code 62166 -------- FINAL REPORT -------- Dictated By: Nicolas Owusu Dictated Date: 08/16/2024 08:28 ET Assigned Physician: Nicolas Owusu Reviewed and Electronically Signed By: Nicolas Owusu Signed Date: 08/16/2024 08:29 ET Workstation ID: [id number] Transcribed By: Self Edit Transcribed Date: 08/16/2024 [...] density of the femurs bilaterally is 0.660 gm/to8jeydl is 66% of that of young normals [...] probability of hip fracture of 10.8%. Code 98447 -------- FINAL REPORT -------- Dictated By: Nicolas Owusu Dictated Date: 08/16/2024 08:28 ET Assigned Physician: Nicolas Owusu Reviewed and Electronically Signed By: Nicolas Owusu Signed Date: 08/16/2024 08:29 ET Workstation ID: [id number] Transcribed By: Self Edit Transcribed Date: 08/16/2024 08:28 ET Sheba JOHNSON IMEdin DXA PROCEDURES Final Result * (ABNORMAL) Lipid panel with reflex to direct LDL (05/16/2024 9:20 AM EDT) Cholesterol 223(H) 0 - 200 mg/dL LAB CHEMISTRY METHOD 05/16/2024 2:19 PM [facility] Triglycerides 58 0 - 150 mg/dL LAB CHEMISTRY METHOD 05/16/2024 2:19 PM [facility] HDL 93 >=40 mg/dL LAB CHEMISTRY METHOD 05/16/2024 2:19 PM [facility] LDL Calculated 118(H) 0 - 100 mg/dL LAB CHEMISTRY METHOD 05/16/2024 2:19 PM [facility] VLDL Cholesterol Fredrick 11.6 mg/dL LAB CHEMISTRY METHOD 05/16/2024 2:19 PM [facility] Non HDL Chol. (LDL+VLDL) 130 <145 mg/dL LAB CHEMISTRY METHOD 05/16/2024 2:19 PM [facility] Chol/HDL Ratio 2.4 0.0 - 4.4 LAB CHEMISTRY METHOD 05/16/2024 2:19 PM [facility] Blood Venous blood specimen / Unknown Venipuncture / Unknown 05/16/2024 9:20 AM EDT 05/16/2024 9:20 AM EDT us Jong Zarco MD LAB BLOOD ORDERABLES Final Resul t [facility] [address] [place] [address], * Comprehensive metabolic panel (05/16/2024 9:20 AM EDT) Sodium 138 133 - 145 mmol/L LAB CHEMISTRY METHOD 05/16/2024 2:14 PM [facility] Potassium 4.6 3.5 - 5.5 mmol/L LAB CHEMISTRY METHOD 05/16/2024 2:14 PM [facility] Chloride 104 96 - 110 mmol/L LAB CHEMISTRY METHOD 05/16/2024 2:14 PM [facility] CO2 28 21 - 32 mmol/L LAB CHEMISTRY METHOD 05/16/2024 2:14 PM [facility] Anion Gap 6 3 - 11 LAB CHEMISTRY METHOD 05/16/2024 2:14 PM [facility] Glucose 99 70 - 100 mg/dL LAB CHEMISTRY METHOD 05/16/2024 2:14 PM [facility] BUN 16 5 - 25 mg/dL LAB CHEMISTRY METHOD 05/16/2024 2:14 PM [facility] Creatinine 0.56 0.50 - 1.10 mg/dL LAB CHEMISTRY METHOD 05/16/2024 2:14 PM [facility] eGFR 97 >=60 mL/min/1. 73m2 LAB CHEMISTRY METHOD 05/16/2024 2:14 PM [facility] Comment:Calculation based on the Chronic Kidney Disease Epidemiology Collaboration (CKD-EPI) equation refit without adjustment for race. BUN/Creatinine Ratio 28.6 LAB CHEMISTRY METHOD 05/16/2024 2:14 PM EDT [facility] Calcium 9.6 8.5 - 10.5 mg/dL LAB CHEMISTRY METHOD 05/16/2024 2:14 PM EDT [facility] AST (SGOT) 14 10 - 42 unit/L LAB CHEMISTRY METHOD 05/16/2024 2:14 PM [facility] ALT (SGPT) 18 10 - 60 unit/L LAB CHEMISTRY METHOD 05/16/2024 2:14 PM EDT [facility] Alkaline Phosphatase 82 42 - 121 unit/L LAB CHEMISTRY METHOD 05/16/2024 2:14 PM EDT [facility] Total Protein 7.3 6.0 - 8.0 g/dL LAB CHEMISTRY METHOD 05/16/2024 2:14 PM [facility] Albumin 3.9 3.2 - 5.0 g/dL LAB CHEMISTRY METHOD 05/16/2024 2:14 PM T [facility] Total Bilirubin 0.5 0.0 - 1.4 mg/dL LAB CHEMISTRY METHOD 05/16/2024 2:14 PM T [facility] Blood Venous blood specimen / Unknown Venipuncture / Unknown 05/16/2024 9:20 AM EDT 05/16/2024 9:20 AM EDT Jong Zarco MD LAB BLOOD ORDERABLES Final Resul t [facility] [address] [place] [address], from Last 3 Months or Most Recently Relevant to Health Maintenance Insurance [employer] Care Teams Gluing Machine Adjuster Relationship Specialty Start Date End Date Jong Zarco MD [address] [place] [id number] PCP - General 11/11/22
--- OUTSIDE RECORDS SUMMARY | 2024-12-11 13:41 | XMS_ITS | Patient Health Record ---
Author Organization [facility] [place] Address [address] [facility] [address] [place] [address] Support Name Relationship Address Phone ZHANNA HAIR Guarantor Unknown [phone] Reason For Referral No Information Plan Of Treatment No Information Insurance Providers Payer Name Payer Address Payer Phone Subscriber Number Group Number Insured Name Patient Relationship to Insured Coverage Start Date Coverage End Date [employer] Preferred [address] [place] [address] [id number] ZHANNA HAIR Self - patient is the insured
--- OUTSIDE RECORDS SUMMARY | 2024-12-11 13:41 | XMS_ITS | Patient Health Record ---
Author Organization [facility] Address [address] [place] [address] Care Team Providers Care Business Account Specialist Name Role Phone GURPREET SILVA Primary Care Provider [phone] LEIGHANN CHARLI Unavailable [phone] Allergies Allergen (clinical drug ingredient) Drug/Non Drug Allergy documented on EMR Reaction Allergy Type Onset Date Status grass pollen (uncoded) itchy eyes sneezing runny nose Allergy Active tree polle (uncoded) itchy eyes, sneezing, runny nose Allergy Active Iodine Anaphylactic shock Drug Allergy Active Shellfish (FN) Shellfish-derived Products flushed, hot Drug Allergy Active Results Component Value Reference Range Notes EKG Reviewed date:06/25/2024 01:07:46 PM Interpretation: Performing Lab: Notes/Report: ECGDiastolicBP 80 ECGHr 60 ECGPRInterval 172 ECGPWaveAxis 47 ECGQRSDuration 88 ECGQrsWaveAxis -8 ECGQTcInterval 444 ECGQTInterval 444 ECGSystolicBP 124 ECGTWaveAxis 22 RR_DiastolicBP 0 RR_MaxRRInterval 0 RR_MeanHR 0 RR_MeanRRInterval 0 RR_MinRRInterval 0 RR_NumBeats 0 RR_NumNormalBeats 0 RR_SystolicBP 0 VON WILLEBRAND FACTOR ACTIVI TY Reviewed date:09/04/2024 08:27:33 AM Interpretation: Performing Lab: Notes/Report: von Willebrand Factor Activity Percent 170 51-215 % REFERENCE INTERVAL: von Willebrand Factor, Activity (RCF) Access complete set of age- and/or gender-specific reference intervals for this test in the [employer] Laboratory Test Directory ([employer]). Performed By: [employer] [address] [place] [id number] [employer] [address] [employer] Fitter: Andrez Mike MD, PhD MARKELL Number: [id number] BONE DENSITY DXA AXIAL SK CATHERINE Reviewed date:08/16/2024 01:14:54 PM Interpretation: Performing Lab: Notes/Report: Note See Note [facility], a member of [employer] Patient Name: PETTY HAIR Date of : 1950 Reason for Exam: OSTEOPOROSIS Exam Date: 08/15/2024 [id number] EST Report Status: Final Ordering Provider: CHARLI [...] probability of hip fracture of 10.8%. Code 22986 -------- FINAL REPOR T -------- Dictated By: Nicolas Owusu Dictated Date: 08/16/2024 08:28 ET Assigned Physician: Nicolas Owusu Reviewed and Electronically Signed By: Nicolas Owusu Signed Date: 025 08:29 ET Workstation ID: [id number] Transcribed By: Self Edit Transcribed Date: 08/16/2024 08:28 ET MG MAMMO DIGITAL SCREENING W LAY RICHARDSON Reviewed date:11/06/2024 01:29:18 PM Interpretation: Performing Lab: Notes/Report: Note See Note [facility], a member of [employer] Patient Name: PETTY HAIR Date of : 1950 Reason for Exam: breast screening by mammogram Exam Date: 11/06/2024 [id number] EST Report Status: Final Ordering Provider: CHARLI LAWTON PCP: GURPREET ISLVA CLINICAL: The patien mercedes is a 73 years Female presenting for routine screening mammography. The patient has undergone previous bilateral reduction mammoplasty. COMPARISON: Most recently 02/02/2022 and most remotely 06/29/2016. TECHNIQUE: Full-fiel d digital mammography of the breasts bilaterally consisting of tomosynthesis in MLO and CC projection is performed in the Ce[employer]ore 2000-D unit. Computer aided detection utilizing the [employer] system was utilized. FINDINGS: The breast s [...] for biopsy. PQRI CPT II 3341F Code 77814, 72733 PQRI 225 CPT II 7025F TISSUE DENSITY: The breasts are almost entirely fatty. (BI-RADS Category A) IMPRESSION: Benign. BI-RADS CATEGORY: 1 - NEGATIVE RECOMMENDATION: Screening bilateral mammogram is recommended in 1 year. Mammo Location: [facility], [address] [place] [address] -------- FINAL REPOR T -------- Dictated By: Nicolas Owusu Dictated Date: 11/06/2024 11:02 ET Assigned Physician: Nicolas Owusu Reviewed and Electronically Signed By: Nicolas Owusu Signed Date: 025 11:07 ET Workstation ID: [id number] Transcribed By: Self Edit Transcribed Date: 11/06/2024 11:02 ET US HEAD NECK SOFT TISSUE Reviewed date:06/24/2024 02:25:13 PM Interpretation: Performing Lab: Notes/Report: Note See Note [facility], a member of [facility] Patient Name: PETTY HAIR Date of : 1950 Reason for Exam: malignant neoplasm Exam Date: 06/19/2024 [id number] EST Report Status: Final Ordering Provider: JOSE [...] recommended. 2. Stable right thyroidectomy sequela. Telerad ALEX ([id number]) -------- FINAL REPOR T -------- Dictated By: Unique Pringle i Dictated Date: 06/19/2024 13:48 ET Assigned Physician: Unique Garcia Reviewed and Electronically Signed By: Unique Garcia Signed Date: 025 13:54 ET Workstation ID: [id number] Transcribed By: Self Edit Transcribed Date: 06/19/2024 13:48 ET US HEAD NECK SOFT TISSUE Reviewed date:09/06/2024 12:10:09 PM Interpretation: Performing Lab: Notes/Report: Note See Note [facility], a member of [facility] Patient Name: PETTY HAIR Date of : 1950 Reason for Exam: submandibular gland swelling Exam Date: 09/03/2024 [id number] EST Report Status: Final Ordering Provider: CHARLI [...] Signed Date: 025 07:16 ET Workstation ID: [id number] Transcribed By: Self Edit Transcribed Date: 09/06/2024 07:10 ET MORRO PITTS Reviewed date:09/05/2024 03:26:59 PM Interpretation: Performing Lab: [...] DNA (2.5 ng/PCR reaction). Test performed at [address] [address] Michelle Cook MD, PhD - Vending Attendant THYROID STIMULATING HORMONE WITH REFLEX TO FREE [...] AGUILAR WILLOUGHBY 0 07/05/2024 09:18:02 AM >[address] [address], [phone], [phone] Clinical Notes patient does not wan t colonosscopy Referral Priority Routine Reason [facility] Vascular Diagnosis 1 Stricture of artery (I77.1) Referral Organization [facility] Referring Provider First Name CHARLI Referring Provider Last Name LEIGHANN Referring Provider Speciality Internal edicine Referred Provider Specialty Vascular Shekhar romulo General Notes BUDPUMAAGUILAR WARREN 0 08/12/2024 09:56:06 AM >information sent over to [facility] with [facility] and carotid, p- , [phone] Clinical Notes Trisha Adkins 01:58:11 PM > refaxedJed Redena 08/26/2024 03:47:27 PM > Not contracted with insurance, Shelly Duncan 08/28/2024 12:02:02 PM > [facility] vascular , [phone], f. [phone], Trisha Adkins 09/05/2024 12:57:34 PM > The office confirmed receipt of referral. They will be calling the patient today for scheduling Referral Priority Routine Reason [facility] Diagnosis 1 Ventricular tachycar rebecca (I47.20) Diagnosis 2 Atrial tachycardia ( I47.19) Diagnosis 3 Irregular heartbeat (I49.9) Referral Organization [facility] Referring Provider First Name CHARLI Referring Provider Last Name LEIGHANN Referring Provider [facility] Internal edicine Referred Provider Specialty Cardiology General Notes RENETTAAGUILAR WARREN 0 09/09/2024 04:53:16 PM >Information with Holter faxed over to [facility] , , Clinical Notes Ashwin Cesar 02:38:59 PM > lvm to office. I called pt and she confirmed she was already seen Referral Priority Routine Reason [facility] Diagnosis 1 Right carpal tunnel syndrome (G56.01) 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 Problem Stricture of artery (88654220) Stricture of artery (I77.1) Active confirmed Problem Family history of ischemic heart disease (577251341) Family history of ischemic heart disease and other diseases of the circulatory system (Z82.49) Active confirmed Problem Hyperlipidaemia (40761767) Hyperlipidemia, unspecified hyperlipidemia type (E78.5) Active confirmed Problem Hemorrhoids without complication (64138685) Hemorrhoids, unspecified hemorrhoid type (K64.9) Active confirmed Problem Rosacea (232468040) Rosacea (L71.9) Active confirmed Problem Vitamin D deficiency (57337456) Vitamin D deficiency (E55.9) Active confirmed Problem Age-related osteoporosis (120273777) Osteoporosis, unspecified osteoporosis type, unspecified pathological fracture presence (M81.0) Active confirmed Problem Numbness (14103691) Numbness (R20.0) Active confirmed Problem Obesity (256642650) Obesity (BMI 30-39.9) (E66.9) Active confirmed Problem Incontinence of feces (19232968) Incontinence of feces, unspecified fecal incontinence type (R15.9) Active confirmed Problem Cardiac arrhythmia (344448776) Irregular heartbeat (I49.9) Active confirmed Problem Essential hypertension (45217313) High blood pressure determined by examination (I10) Active confirmed Problem Lipid screening (819961064) Lipid screening (Z13.220) Active confirmed Problem Osteoporosis (87671931) Osteoporosis (M81.0) Active confirmed Problem Carpal tunnel syndrome (31262104) Right carpal tunnel syndrome (G56.01) Active confirmed Problem Dizzy spells (051968944) Dizzy spells (R42) Active confirmed Problem Skin sensation disturbance (41589615) Finger numbness (R20.0) Active confirmed Vital Signs Heart Rate 69 /min 09/25/2024 Oximetry 98 % 09/25/2024 Blood pressure diastolic 78 mm Hg 09/25/2024 Height 61 in 09/25/2024 Blood pressure systolic 128 mm Hg 09/25/2024 Weight 133.4 lbs 09/25/2024 BMI 25.2 kg/m2 09/25/2024 Encounters Encounter Location Date Provider Diagnosis [facility] [address] [place], [place] 06/25/2024 CHARLI LEIGHANN Encounter for genera [...] unspecified R51.[address] [facility] [address] [place], [place] 08/28/2024 CHARLI LEIGHANN Obesity (BMI 30-39.9 ) E66.9 ; Palpitations R00.2 ; Hypothyroidism, unspecified E03.9 ; Vitamin D deficiency E55.9 ; Rosacea L71.9 ; Headache, unspecified R51.9 ; Submandibular gland swelling R60.0 ; Genetic testing Z13.79 and Encounter for examination of blood pressure without abnormal findings Z01.[address] [facility] [address] [place], [place] 09/25/2024 CHARLI LEIGHANN Palpitations R00.2 ; Obesity (BMI 30-39.9) E66.9 ; Hypothyroidism, unspecified E03.9 ; Vitamin D deficiency E55.9 ; Rosacea L71.9 ; Headache, unspecified R51.9 ; Submandibular gland swelling R60.0 ; Genetic testing Z13.79 and Encounter for examination of blood pressure without abnormal findings Z01.30 [facility] [address] [facility] [address] [place], [place] 01/09/2024 MAHI RICARDO [facility] [address] [facility] [address] [place], [place] 02/06/2024 GURPREET SILVA [facility] [address] [facility] [address] [place], [place] 04/23/2024 MAHI RICARDO [facility] [address] [place] [address] 05/31/2024 GURPREET SILVA [facility] [address] [facility] [address] [place], [place] 06/25/2024 CHARLI LEIGHANN Screening mammogram for breast cancer Z12.31 [facility] [address] [facility] [address] [place] [address] 06/25/2024 CHARLI LEIGHANN [facility] [address] [place] [address] 07/08/2024 GURPREET SILVA [facility] [address] [place] [address] 07/25/2024 GURPREET SILVA Colon cancer screeni ng Z12.[address] [facility] [address] [place], [place] 07/25/2024 CHARLI LEIGHANN [facility] [address] [place] [address] 07/26/2024 CHARLI LEIGHANN [facility] [address] [place], [place] 08/26/2024 CHARLI LEIGHANN [facility] [address] [facility] [address] [place] [address] 08/26/2024 GURPREET SILVA [facility] [address] [place], [place] 09/04/2024 GURPREET SILVA [facility] [address] [facility] [address] [place] [address] 09/06/2024 CHARLI LEIGHANN [facility] [address] [facility] [address] [place] [address] 09/09/2024 CHARLI LEIGHANN [facility] [address] [place], [place] 09/11/2024 CHARLI LEIGHANN [facility] [address] [facility] [address] [place], [place] 11/15/2024 CHARLI LEIGHANN Vitamin D deficiency E55.9 ; Hypothyroidism, unspecified E03.9 ; Hyperlipidemia, unspecified hyperlipidemia type E78.5 ; Adult general medical exam Z00.00 and Submandibular gland swelling R60.[address] [facility] [address] [place], [place] 11/27/2024 GURPREET SILVA Assessments Encounter Date Diagnosis (ICD Code) Assessment [...] Fall risk assessed Discussed healthcare proxy. Discussed [place] order for life sustaining treatment, end-of-life issues, [...] Dictation was accomplished with the use of [employer] voice recognition software, which is prone to [...] Fall risk assessed Discussed healthcare proxy. Discussed [place] order for life sustaining treatment, end-of-life issues, [...] Dictation was accomplished with the use of [employer] voice recognition software, which is prone to [...] Leiden and von Willebrand per her son's manager ui. #Fasting: Patient states she fasts for 20 [...] Patient is to receive a follow-up through [facility] of her thyroid nodules. #Palpable lymph nodes: [...] Dictation was accomplished with the use of [employer] voice recognition software, which is prone to [...] Leiden and von Willebrand per her son's manager ui. #Fasting: Patient states she fasts for 20 [...] Patient is to receive a follow-up through [facility] of her thyroid nodules. #Palpable lymph nodes: [...] Dictation was accomplished with the use of [employer] voice recognition software, which is prone to [...] Leiden and von Willebrand per her son's manager ui....Fact or V Leiden and von Willebrand factor [...] Patient is to receive a follow-up through [facility] of her thyroid nodules. #Submandibular gland prominence: [...] Dictation was accomplished with the use of [employer] voice recognition software, which is prone to [...] Leiden and von Willebrand per her son's manager ui....Fact or V Leiden and von Willebrand factor [...] through [facility] of her thyroid nodules. #Submandibular gland prominence: [...] Dictation was accomplished with the use of [employer] voice recognition software, which is prone to [...] Leiden and von Willebrand per her son's manager ui....Fact or V Leiden and von Willebrand factor [...] Patient is to receive a follow-up through [facility] of her thyroid nodules. #Submandibular gland prominence: [...] Dictation was accomplished with the use of [employer] voice recognition software, which is prone to [...] Leiden and von Willebrand per her son's manager ui. #Fasting: Patient states she fasts for 20 [...] Patient is to receive a follow-up through [facility] of her thyroid nodules. #Palpable lymph nodes: [...] Dictation was accomplished with the use of [employer] voice recognition software, which is prone to [...] Fall risk assessed Discussed healthcare proxy. Discussed [place] order for life sustaining treatment, end-of-life issues, [...] Dictation was accomplished with the use of [employer] voice recognition software, which is prone to [...] Fall risk assessed Discussed healthcare proxy. Discussed [place] order for life sustaining treatment, end-of-life issues, [...] Dictation was accomplished with the use of [employer] voice recognition software, which is prone to [...] Leiden and von Willebrand per her son's manager ui. #Fasting: Patient states she fasts for 20 [...] Patient is to receive a follow-up through [facility] of her thyroid nodules. #Palpable lymph nodes: [...] Dictation was accomplished with the use of [employer] voice recognition software, which is prone to [...] Leiden and von Willebrand per her son's manager ui....Fact or V Leiden and von Willebrand factor [...] Patient is to receive a follow-up through [facility] of her thyroid nodules. #Submandibular gland prominence: [...] Dictation was accomplished with the use of [employer] voice recognition software, which is prone to [...] Leiden and von Willebrand per her son's manager ui....Fact or V Leiden and von Willebrand factor [...] Patient is to receive a follow-up through [facility] of her thyroid nodules. #Submandibular gland prominence: [...] Dictation was accomplished with the use of [employer] voice recognition software, which is prone to [...] Leiden and von Willebrand per her son's manager ui. #Fasting: Patient states she fasts for 20 [...] Patient is to receive a follow-up through [facility] of her thyroid nodules. #Palpable lymph nodes: [...] Dictation was accomplished with the use of [employer] voice recognition software, which is prone to [...] Fall risk assessed Discussed healthcare proxy. Discussed [place] order for life sustaining treatment, end-of-life issues, [...] Dictation was accomplished with the use of [employer] voice recognition software, which is prone to [...] Fall risk assessed Discussed healthcare proxy. Discussed [place] order for life sustaining treatment, end-of-life issues, [...] Dictation was accomplished with the use of [employer] voice recognition software, which is prone to [...] Leiden and von Willebrand per her son's manager ui. #Fasting: Patient states she fasts for 20 [...] Patient is to receive a follow-up through [facility] of her thyroid nodules. #Palpable lymph nodes: [...] Dictation was accomplished with the use of [employer] voice recognition software, which is prone to [...] Leiden and von Willebrand per her son's manager ui....Fact or V Leiden and von Willebrand factor [...] Patient is to receive a follow-up through [facility] of her thyroid nodules. #Submandibular gland prominence: [...] Dictation was accomplished with the use of [employer] voice recognition software, which is prone to [...] Leiden and von Willebrand per her son's manager ui....Fact or V Leiden and von Willebrand factor [...] Patient is to receive a follow-up through [facility] of her thyroid nodules. #Submandibular gland prominence: [...] Dictation was accomplished with the use of [employer] voice recognition software, which is prone to [...] Leiden and von Willebrand per her son's manager ui. #Fasting: Patient states she fasts for 20 [...] Patient is to receive a follow-up through [facility] of her thyroid nodules. #Palpable lymph nodes: [...] Dictation was accomplished with the use of [employer] voice recognition software, which is prone to [...] Dictation was accomplished with the use of [employer] voice recognition software, which is prone to [...] Dictation was accomplished with the use of [employer] voice recognition software, which is prone to [...] Leiden and von Willebrand per her son's manager ui. #Fasting: Patient states she fasts for 20 [...] Patient is to receive a follow-up through [facility] of her thyroid nodules. #Palpable lymph nodes: [...] Dictation was accomplished with the use of [employer] voice recognition software, which is prone to [...] Leiden and von Willebrand per her son's manager ui....Fact or V Leiden and von Willebrand factor [...] Patient is to receive a follow-up through [facility] of her thyroid nodules. #Submandibular gland prominence: [...] Dictation was accomplished with the use of [employer] voice recognition software, which is prone to [...] Leiden and von Willebrand per her son's manager ui....Fact or V Leiden and von Willebrand factor [...] through [facility] of her thyroid nodules. #Submandibular gland prominence: [...] Dictation was accomplished with the use of [employer] voice recognition software, which is prone to [...] Fall risk assessed Discussed healthcare proxy. Discussed [place] order for life sustaining treatment, end-of-life issues, [...] Dictation was accomplished with the use of [employer] voice recognition software, which is prone to [...] Leiden and von Willebrand per her son's manager ui. #Fasting: Patient states she fasts for 20 [...] Patient is to receive a follow-up through [facility] of her thyroid nodules. #Palpable lymph nodes: [...] Dictation was accomplished with the use of [employer] voice recognition software, which is prone to [...] Dictation was accomplished with the use of [employer] voice recognition software, which is prone to [...] Name:CHARLI LAWTON, 11:00:00 AM, [address], [place], [address], Insurance Providers Payer Name Payer Address Payer Phone Subscriber Number Group Number Insured Name Patient Relationship to Insured Coverage Start Date Coverage End Date [employer] Preferred [address] [place] [id number] Petty Hair Self - patient is the [...]
== END 2024-12-11 11:13 | disposition home or self-care (01) ==
LOC: HO.HMGAL 11:04
PROVIDERS: PCP Internal Medicine; Visit Provider Registered Nurse Emergency
DX: J30.89 Other allergic rhinitis (principal)
CPT/HCPCS: 95117; 95165

== ENCOUNTER 2025-01-01 11:03 | Outpatient (AMB) | payer MEDICARE, SELFPAY ==
--- OUTSIDE RECORDS SUMMARY | 2024-12-24 06:00 | XMS_ITS ---
Author Organization [facility] [address] Address [address] [place] [address] Care Team Providers Care Minister Of Religion Name Role Phone SILVAGURPREET Primary Care Provider CHARLI LAWTON Unavailable [phone] Chani Shetty Unavailable [phone] Encounters Encounter Location Date Provider Diagnosis [facility] [address] [address] 12/24/2024 Chani Shetty Plan Of Treatment No Information Progress Notes * Milena HAIROB:1950 (74 yo F)Acc No.[id number]:12/24/2024 Progress Notes Patient: Petty PANG Provider: Sadie Shetty PA-C :1950 A ge:74 Y S ex:Female Date:12/24/2024 Address:[address] [id number] Pcp:GURPREET SILVA Subjective: * Chief Complaints: * * Medical History: Objective: * Vitals: Assessment: Plan: * Treatment: * Images: Billing Information: * Visit Code: * Procedure Codes: Care Plan Details* * Electronic signature of Kim Shetty PA-C on 01/01/2025 at 01:12 PM EST Sign off status: Pending * Provider: Sadie Shetty PA-C Date: Generated for Moise clayton/Kalee/eTransmrichie on: 03/03/2024 01:12 PM EST
--- OUTSIDE RECORDS SUMMARY | 2025-01-01 13:12 | XMS_ITS | Patient Health Record ---
Author Organization [facility] Address [address] [place] [address] Care Team Providers Care Airfield Operations Specialist Name Role Phone GURPREET ZARCO Primary Care Provider CHARLI LAWTON Unavailable [phone] Susana Shetty Unavailable [phone] Allergies Allergen (clinical drug ingredient) Drug/Non Drug [...] 0 US HEAD NECK SOFT TISSUE Reviewed date:12/31/2024 01:37:23 PM Interpretation: Performing Lab: Notes/Report: Note See Note [facility], a member of [employer] Patient Name: PETTY HAIR Date of : 1950 Reason for Exam: 3 MO F/U DUE 12/04 OR AFTER Exam Date: 12/25/2024 [id number] EST Report Status: Final Ordering Provider: CHARLI LAWTON PCP: GURPREET ZARCO EXAMINATION: US. SOF T TISSUES NECK CLINICAL INFORMATION: Previous abnormal ultrasound. Evaluate for interval change COMPARISON: Portions of previous ultrasound 09/03/24 TECHNIQUE: High-frequency linea r transducer examination with attention to the area of clinical concern The region of the submandibular gland on each side was examined. FINDINGS: QUALITY: Adequate RIGHT The right submandibu lar gland is slightly hypoechoic and heterogeneous. There is increased color signal. There is no discrete mass or collection. There is no shadowing calculus. LEFT The previously sugge sted hypoechoic abnormality posteriorly appears to represent normal muscle tissue. The left submandibul ar gland appears slightly more homogeneous and echogenic when compared to the right. No suspicious mass o r suspicious area of altered echotexture IMPRESSION: No suspicious findin g on the left. Slightly hypoechoic hypervascular right submandibular gland without an abscess or discrete mass. Possibilities includ e sialoadenitis -------- FINAL REPOR T -------- Dictated By: Arnold Ramirez Dictated Date: 12/30/2024 10:23 ET Assigned Physician: Arnold Butterfield Reviewed and Electronically Signed By: Arnold Butterfield Signed Date: 10:28 ET Workstation ID: [id number] Transcribed By: Self Edit Transcribed Date: 12/30/2024 10:23 ET URINALYSIS WITH REFLEX MICRO SCOPIC Reviewed date:12/19/2024 04:12:32 PM Interpretation: Performing Lab: Notes/Report: Specific [place] Urine 1.013 1.003-1.030 pH, Urine 5.5 5.0-8.0 pH Leukocytes, Urine Trace Negative Nitrite, Urine Negative Negative Protein, Urine Negative <=Trace mg/dL Glucose, Urine Negative Negative mg/dL Ketones, Urine Negative Negative mg/dL Urobilinogen, Urine 0.2 0.2-1.0 mg/dL Bilirubin, Urine Negative Negative Blood, Urine Negative Negative RBC, Urine 2.0 0-4 /HPF WBC, Urine 1.0 0-4 /HPF Squamous Epithelial, Urine 13 0-60 /LPF Bacteria, Urine Negative Negative /HPF Hyaline Casts, Urine 0.4 0-3 /LPF CBC WITH AUTO DIFFERENTIAL Reviewed date:12/19/2024 04:12:32 PM Interpretation: Performing Lab: Notes/Report: WBC 8.3 4.8-10.8 K/mcL RBC 4.50 3.80-4.80 M/mcL Hemoglobin 12.4 11.5-16.0 g/dL Hematocrit 38.2 35.0-47.0 % MCV 84.3 79.0-98.0 FL MCH 27.4 27.0-32.0 pcg MCHC 32.5 32.0-37.0 g/dL RDW 14.6 11.0-15.0 % Platelets 196 130-400 K/mcL MPV 11.0 7.0-11.0 FL NRBC 0.0 <1.0 % NRBC Absolute 0.00 <0.10 K/mcL Neutrophils Relative 76.4 Lymphocytes Relative 15.0 Monocytes Relative 7.0 Eosinophils Relative 0.7 Basophils Relative 0.5 Immature Granulocytes Relative 0.4 Neutrophils Absolute 6.30 1.50-7.00 K/mcL Lymphocytes Absolute 1.24 1.00-5.00 K/mcL Monocytes Absolute 0.58 0.20-1.00 K/mcL Eosinophils Absolute 0.06 0.00-0.50 K/mcL Basophils Absolute 0.04 0.00-0.20 K/mcL Immature Granulocytes Absolute 0.03 0.00-0.03 K/mcL XR HAND 3+ VIEWS RIGHT Reviewed date:12/19/2024 04:12:32 PM Interpretation: Performing Lab: Notes/Report: Note See Note [facility], a member of [employer] Patient Name: PETTY HAIR Date of : 1950 Reason for Exam: OTHER Exam Date: 12/19/2024 [id number] EST Report Status: Final Ordering Provider: SUSANA SHETTY PCP: GURPREET ZARCO HISTORY: The patient is a 74-year-old female with pain and swelling of the base of the right fifth finger, nontraumatic. FINDINGS: The study demonstrates no fracture or dislocation. There is narrowing of the second distal interphalangeal joint with small adjacent osteophytes consistent with osteoarthritis. No arthritic change is seen elsewhere in the hand. There is calcification of the triangular fibrocartilage. IMPRESSION: No acute findings. 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 Calcification of the fibroglandular cartilage is noted. Code 12525 -------- FINAL REPOR T -------- Dictated By: Nicolas Owusu Dictated Date: 12/19/2024 11:57 ET Assigned Physician: Nicolas Owusu Reviewed and Electronically Signed By: Nicolas Owusu Signed Date: 11:59 ET Workstation ID: [id number] Transcribed By: Self Edit Transcribed Date: 12/19/2024 11:57 ET C REACTIVE PROTEIN, HIGH SEN SITIVITY Reviewed date:12/19/2024 04:12:32 PM Interpretation: Performing Lab: Notes/Report: CRP, High Sensitivity 14.40 Results verified by repeat testing Cardio CRP Relative Risk Categories Low <1.0 mg/L Average 1.0 - 3.0 mg/L High >3.0 mg/L Levels >10.0 mg/L should be ignored and repeated when the patient is stable and infection or inflammation is ruled out. HRT (estrogens) consistently increase cardio CRP levels. Risk estimates for women on HRT may need to be calibrated downward. SEDIMENTATION RATE Reviewed date:12/19/2024 04:12:32 PM Interpretation: Performing Lab: Notes/Report: Sed Rate 27 0-30 mm/hr URIC ACID Reviewed date:12/19/2024 04:12:32 PM Interpretation: Performing Lab: Notes/Report: Uric Acid 3.4 3.1-7.8 mg/dL VITAMIN B12 Reviewed date:12/19/2024 04:12:32 PM Interpretation: Performing Lab: Notes/Report: Vitamin B-12 811 250-900 pcg/mL COMPREHENSIVE METABOLIC PANE L Reviewed date:12/19/2024 04:12:32 PM Interpretation: Performing Lab: Notes/Report: Sodium 140 133-145 mmol/L Potassium 4.0 3.5-5.5 mmol/L Chloride 107 96-110 mmol/L CO2 25 21-32 mmol/L Anion Gap 8 3-11 Glucose 96 70-100 mg/dL BUN 16 5-25 mg/dL Creatinine 0.51 0.50-1.10 mg/dL eGFR 98 >=60 mL/min/1.73m2 Calculation based on the Chronic Kidney Disease Epidemiology Collaboration (CKD-EPI) equation refit without adjustment for race. BUN/Creatinine Ratio 31.4 Calcium 8.9 8.5-10.5 mg/dL AST (SGOT) 17 10-42 unit/L ALT (SGPT) 24 10-60 unit/L Alkaline Phosphatase 68 42-121 unit/L Total Protein 7.1 6.0-8.0 g/dL Albumin 3.8 3.2-5.0 g/dL Total Bilirubin 0.5 0.0-1.4 mg/dL THYROID STIMULATING HORMONE Reviewed date:12/20/2024 08:44:56 AM Interpretation: Performing Lab: Notes/Report: TSH 2.53 0.40-4.00 mcIU/mL VITAMIN D 25 HYDROXY Reviewed date:12/20/2024 08:44:56 AM Interpretation: Performing Lab: Notes/Report: Vit D, 25-Hydroxy 59.0 30.0-80.0 ng/mL LIPID PANEL WITH REFLEX TO D IRECT LDL Reviewed date:12/19/2024 04:12:32 PM Interpretation: Performing Lab: Notes/Report: Cholesterol 186 0-200 mg/dL Triglycerides 33 0-150 mg/dL HDL 96 >=40 mg/dL LDL Calculated 83 0-100 mg/dL Estimated LDL Calculated using equation: Total cholesterol - HDL cholesterol - (Triglycerides/5) VLDL Cholesterol Fredrick 6.6 Non HDL Chol. (LDL+VLDL) 90 <145 mg/dL Chol/HDL Ratio 1.9 0.0-4.4 MG MAMMO DIGITAL SCREENING W ALY BILAT Reviewed date:11/06/2024 01:29:18 PM Interpretation: Performing Lab: Notes/Report: Note See Note [facility], a member of [employer] Patient Name: PETTY HAIR Date of : 1950 Reason for Exam: breast screening by mammogram Exam Date: 11/06/2024 [id number] EST Report Status: Final Ordering Provider: CHARLI LAWTON PCP: GURPREET ZARCO CLINICAL: The patien t is a 73 years Female presenting for routine screening mammography. The patient has undergone previous bilateral reduction mammoplasty. COMPARISON: Most recently 02/02/2022 and most remotely 06/29/2016. TECHNIQUE: Full-fiel d digital mammography of the breasts bilaterally consisting of tomosynthesis in MLO and CC projection is performed in the [employer] Online[employer] 2000-D unit. Computer aided detection utilizing the iCAD system was utilized. FINDINGS: The breast s are again seen to be largely fatty replaced. There is no cluster of microcalcifications, mass, or area of architectural distortion. There is no skin thickening or nipple retraction. IMPRESSION: No mammographic evid ence of malignancy. A negative mammogram in the presence of a clinically suspicious palpable abnormality does not preclude the possibility of malignancy or alter the indications for biopsy. PQRI CPT II 3341F Code 75005, 62677 PQRI 225 CPT II 7025F TISSUE DENSITY: The breasts are almost entirely fatty. (BI-RADS Category A) IMPRESSION: Benign. BI-RADS CATEGORY: 1 - NEGATIVE RECOMMENDATION: Screening bilateral mammogram is recommended in 1 year. Mammo Location: [facility], [address] [place] [id number] -------- FINAL REPOR T -------- Dictated By: Nicolas Owusu Dictated Date: 11/06/2024 11:02 ET Assigned Physician: Nicolas Owusu Reviewed and Electronically Signed By: Nicolas Owusu Signed Date: 025 11:07 ET Workstation ID: [id number] Transcribed By: Self Edit Transcribed Date: 11/06/2024 11:02 ET US HEAD NECK SOFT TISSUE Reviewed date:09/06/2024 12:10:09 PM Interpretation: Performing Lab: Notes/Report: Note See Note [facility], a member of [employer] Patient Name: PETTY HAIR Date of : 1950 Reason for Exam: submandibular gland swelling Exam Date: 09/03/2024 [id number] EST Report Status: Final Ordering Provider: CHARLI LAWTON PCP: GURPREET ZARCO EXAMINATION: US , SO FT TISSUES NECK CLINICAL INFORMATION: Submandibular gland swelling COMPARISON: Portions of previous CT performed without contrast 02/11/07 TECHNIQUE: High-frequency linea r transducer examination with attention to the area of clinical concern The examination targ eted the region of the submandibular glands. The [...] Signed Date: 025 07:16 ET Workstation ID: [id number] Transcribed By: Self Edit Transcribed Date: 09/06/2024 07:10 ET VON WILLEBRAND FACTOR ACTIVI TY Reviewed date:09/04/2024 08:27:33 AM Interpretation: Performing Lab: Notes/Report: von Willebrand Factor Activity Percent 170 51-215 % REFERENCE INTERVAL: von Willebrand Factor, Activity (RCF) Access complete set of age- and/or gender-specific reference intervals for this test in the [facility] Test Directory ([employer]). Performed By: [employer] [address] [place] [id number] Electronic Coils Supervisor: Andrez Mike MD, PhD CLIA Number: [id number] FACTOR V LEIDEN Reviewed date:09/05/2024 03:26:59 PM [...] DNA (2.5 ng/PCR reaction). Test performed at [facility], [facility] [place] [address] Michelle Cook MD, PhD - Montessori Teacher BD BONE DENSITY DXA AXIAL SK [facility] [place] Reviewed date:08/16/2024 01:14:54 PM Interpretation: Performing Lab: Notes/Report: Note See Note [facility], a member of [employer] Patient Name: PETTY HAIR Date of : 1950 Reason for Exam: OSTEOPOROSIS Exam Date: 08/15/2024 [id number] EST Report Status: Final Ordering Provider: CHARLI LAWTON PCP: GURPREET ZARCO HISTORY: The patient is a 73-year-old postmenopausal [...] probability of hip fracture of 10.8%. Code 24916 -------- FINAL REPOR T -------- Dictated By: Nicolas Owusu Dictated Date: 08/16/2024 08:28 ET Assigned Physician: Nicolas Owusu Reviewed and Electronically Signed By: Nicolas Owusu Signed Date: 025 08:29 ET Workstation ID: [id number] Transcribed By: Self Edit Transcribed Date: 08/16/2024 08:28 ET US HEAD NECK SOFT TISSUE Reviewed date:06/24/2024 02:25:13 PM Interpretation: Performing Lab: Notes/Report: Note See Note [facility], a member of [employer] Patient Name: PETTY HAIR Date of : 1950 Reason for Exam: malignant neoplasm Exam Date: 06/19/2024 [id number] EST Report Status: Final Ordering Provider: JOSE LUIS FRAZIER PCP: GURPREET ZARCO HISTORY: Malignant neoplasm of thyroid gland. Status [...] 2. Stable right thyroide[place]ela[place] ([id number]) -------- FINAL REPOR T -------- Dictated By: Unique Pringle i Dictated Date: 06/19/2024 13:48 ET Assigned Physician: Unique Garcia Reviewed and Electronically Signed By: Unique Garcia Signed Date: 025 13:54 ET Workstation ID: [id number] Transcribed By: Self Edit Transcribed Date: 06/19/2024 13:48 ET COMPREHENSIVE METABOLIC PANE L Reviewed date:05/17/2024 11:50:13 AM Interpretation: Performing Lab: Notes/Report: Sodium 138 133-145 mmol/L Potassium 4.6 3.5-5.5 mmol/L Chloride 104 96-110 mmol/L CO2 28 21-32 mmol/L Anion Gap 6 3-11 Glucose 99 70-100 mg/dL BUN 16 5-25 mg/dL Creatinine 0.56 0.50-1.10 mg/dL eGFR 97 >=60 mL/min/1.73m2 Calculation based on the Chronic Kidney Disease Epidemiology [...] K/mcL Immature Granulocytes Absolute 0.01 0.00-0.03 K/mcL THYROID STIMULATING HORMONE WITH REFLEX TO FREE T4 AND FREE T3 Reviewed date:07/18/2024 09:09:31 AM Interpretation: Performing Lab: Notes/Report: TSH 2.27 0.40-4.00 mcIU/mL Reason [facility] Ref[facility] 1 Colon cancer screeni ng (Z12.11) Referral Organization [facility] [address] Referring Provider First Name CHARLI Referring Provider Last Name LEIGHANN Referring Provider Speciality Internal M edicine Referred Provider Jaret RAMIREZ Referred Provider Specialty Gastroentero logy General Notes AGUILAR WILLOUGHBY 0 07/05/2024 09:18:02 AM >[address] [address], [phone], [phone] Clinical Notes patient does not wan t colonosscopy Referral Priority Routine Reason [facility] Vascular Diagnosis 1 Stricture of artery (I77.1) Referral Organization [facility] [address] Referring Provider First Name CHARLI Referring Provider Last Name LEIGHANN Referring Provider Speciality Internal edicine Referred Provider Specialty Vascular Shekhar romulo General Notes AGUILAR WILLOUGHBY 0 08/12/2024 09:56:06 AM >information sent over to [facility] with form and US carotid, p- , [phone] Clinical Notes Trisha Adkins 01:58:11 PM > refaxed, JedTrisha 08/26/2024 03:47:27 PM > Not contracted with insurance, Shelly Duncan 08/28/2024 12:02:02 PM > [facility] , [phone], f. [phone], Trisha Adkins 09/05/2024 12:57:34 PM > The office confirmed receipt of referral. They will be calling the patient today for scheduling Referral Priority Routine Reason [facility] Diagnosis 1 Ventricular tachycar rebecca (I47.20) Diagnosis 2 Atrial tachycardia ( I47.19) Diagnosis 3 Irregular heartbeat (I49.9) Referral Organization [facility] [address] Referring Provider First Name CHARLI Referring Provider Last Name LEIGHANN [facility] Referred Provider Specialty Cardiology General Notes AGUILAR WILLOUGHBY 0 09/09/2024 04:53:16 PM >Information with Holter faxed over to [facility] , , Clinical Notes Ashwin Cesar 02:38:59 PM > lvm to office. I called pt and she confirmed she was already seen Referral Priority Routine Reason [facility] Diagnosis 1 Right carpal tunnel syndrome (G56.01) Referral Organization [facility] Referring Provider First Name CHARLI Referring Provider Last Name LEIGHANN Referring [facility] Referred Provider Specialty Orthopedic S urgery General Notes AGUILAR WILLOUGHBY 0 09/11/2024 03:59:32 PM >Information faxed over to [facility] with EMG and Forms, p- , [phone] Clinical Notes Trisha Adkins 10/ 02:41:24 PM > The patient has been contacted but has not responded Referral Priority Routine Medications Medication SIG (Take, Route, Frequency, Duration) Notes Start Date End Date Status Vitamin B1 100 MG 1 tablet Orally Once a day Active Turmeric-Cheri Acti ve Cephalexin 500 MG 1 tablet Orally ever y 6 hrs; Duration: 5 days 12/19/2024 Active Vitamin K2 Active Doxycycline Hyclate 100 MG 1 tablet Oral ly twice a day; Duration: 5 days 12/19/2024 Active Electrolyte-56 Activ e Biotin 10 MG 1 tablet Orally Once a day Active CoQ-10 Active Collagen 1500/C 500-50-0.8 MG as directed Orally Active Multi Complete - as directed Orally Active Vitamin C 500 MG as directed Orally Active Magnesium 400 MG as directed Orally 06/25/2024 Active Xyzal Allergy 24HR 5 MG 1 tablet in the evening Orally Once a day 06/25/2024 Active Fish Oil 1000 MG 1 capsule Orally Thr ee times a day Active Vitamin D3 10 MCG (400 UNIT) 2 tablets Orally Once a day Active Social History Tobacco Use: Social History [...] Status W/U Status Risk Notes Problem Hypothyroidism (10402087) Hypothyroidism, unspecified (E03.9) Active confirmed Problem 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, 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 Problem Stricture of artery (18480121) Stricture of artery (I77.1) Active confirmed Problem Family history of ischemic heart disease (403330901) Family history of ischemic heart disease and other diseases of the circulatory system (Z82.49) Active confirmed Problem Hyperlipidaemia (32949177) Hyperlipidemia, unspecified hyperlipidemia type (E78.5) Active confirmed Problem Hemorrhoids without complication (58227512) Hemorrhoids, unspecified hemorrhoid type (K64.9) Active confirmed Problem Rosacea (694395823) Rosacea (L71.9) Active confirmed Problem Vitamin D deficiency (03676792) Vitamin D deficiency (E55.9) Active confirmed Problem Age-related osteoporosis (701731495) Osteoporosis, unspecified osteoporosis type, unspecified pathological fracture presence (M81.0) Active confirmed Problem Numbness (11662345) Numbness (R20.0) Active confirmed Problem Obesity (754811402) Obesity (BMI 30-39.9) (E66.9) Active confirmed Problem Incontinence of feces (11600698) Incontinence of feces, unspecified fecal incontinence type (R15.9) Active confirmed Problem Cardiac arrhythmia (164448107) Irregular heartbeat (I49.9) Active confirmed Problem Essential hypertension (36403777) High blood pressure determined by examination (I10) Active confirmed Problem Vitamin B>12< deficiency anaemia (29134848) Anemia due to vitamin B12 deficiency, unspecified B12 deficiency type (D51.9) Active confirmed Problem 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, 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) Active confirmed Problem Avitaminosis D (97025651) Avitaminosis D (E55.9) Active confirmed Problem Lipid screening (128070086) Lipid screening (Z13.220) Active confirmed Problem Osteoporosis (75321240) Osteoporosis (M81.0) Active confirmed Problem Carpal tunnel syndrome (52265179) Right carpal tunnel syndrome (G56.01) Active confirmed Problem Dizzy spells (154353187) Dizzy spells (R42) Active confirmed Problem Skin sensation disturbance (80870299) Finger numbness (R20.0) Active confirmed Problem Localized, primary osteoarthritis of the hand (694585993) Inflammation of metacarpophalangeal (MCP) joint (M19.049) Active confirmed Vital Signs Heart Rate 74 /min 12/26/2024 Oximetry 98 % 12/26/2024 Blood pressure diastolic 78 mm Hg 12/26/2024 Height 61 in 12/26/2024 Blood pressure systolic 128 mm Hg 12/26/2024 Weight 134.6 lbs 12/19/2024 BMI 25.43 kg/m2 12/19/2024 Encounters Encounter Location Date Provider Diagnosis [facility] [address] [place], [place] 06/25/2024 CHARLI LEIGHANN Encounter for [facility] adult medical examination without abnormal findings Z00.00 ; Encounter for screening for depression Z13.31 ; Encounter for screening for other disorder Z13.89 ; Obesity (BMI 30-39.9) E66.9 ; Other specified counseling Z71.89 ; Retinal telangiectasis, unspecified eye H35.079 ; Vitamin D deficiency E55.9 ; Rosacea L71.9 ; Hypothyroidism, unspecified E03.9 and Headache, unspecified R51.9 [facility] [address] [place], [place] 08/28/2024 CHARLI LEIGHANN Obesity (BMI 30-39.9 ) E66.9 ; Palpitations R00.2 ; Hypothyroidism, unspecified E03.9 ; Vitamin D deficiency E55.9 ; Rosacea L71.9 ; Headache, unspecified R51.9 ; Submandibular gland swelling R60.0 ; Genetic testing Z13.79 and Encounter for examination of blood pressure without abnormal findings Z01.30 [facility] [address] [place], [place] 09/25/2024 CHARLI LEIGHANN Palpitations R00.2 ; Obesity (BMI 30-39.9) E66.9 ; Hypothyroidism, unspecified E03.9 ; Vitamin D deficiency E55.9 ; Rosacea L71.9 ; Headache, unspecified R51.9 ; Submandibular gland swelling R60.0 ; Genetic testing Z13.79 and Encounter for examination of blood pressure without abnormal findings Z01.[address] [address] 12/19/2024 Susana Normoyle Inflammation of metacarpophalangeal (MCP) joint M19.049 ; Inflammation of metacarpophalangeal (MCP) joint M19.049 ; Cellulitis of right upper extremity L03.113 ; Idiopathic chronic gout of foot without tophus, unspecified laterality M1A.0790 and Encounter for examination of blood pressure without abnormal findings Z01.[address] [facility] [address] [place] 12/26/2024 CHARLI LEIGHANN Palpitations R00.2 ; Hypothyroidism, unspecified E03.9 ; Vitamin D deficiency E55.9 ; Rosacea L71.9 ; Headache, unspecified R51.9 ; Submandibular gland swelling R60.0 ; Genetic testing Z13.79 and Encounter for examination of blood pressure without abnormal findings Z01.30 [facility] [address] 01/09/2024 MAHI RICARDO [facility] [address] 02/06/2024 MAHI RICARDO [facility] [address] 04/23/2024 GURPREET ZARCO [facility] [address] [place] 05/31/2024 MAHI RICARDO [facility] [address] 06/25/2024 CHARLI LEIGHANN Screening mammogram for breast cancer Z12.31 [facility] [address] 06/25/2024 CHARLI LEIGHANN [facility] [address] [place] 07/08/2024 GURPREET PATELAN [facility] [address] [place] 07/25/2024 GURPREET ZARCO Colon cancer screeni Z12.[address] [facility] [address] [place] 07/25/2024 CHARLI LEIGHANN [facility] [address] [place] 07/26/2024 CHARLI LEIGHANN [facility] [address] [place] [address] 08/26/2024 CHARLI LEIGHANN [facility] [address] [place] [address] 08/26/20[address]SE ZARCO [facility] [address] [place] [address] 09/04/2024 GURPREET PATELAN [facility] [address] [place] [address] 09/06/2024 CHARLI LEIGHANN [facility] [address] [place] [address] 09/09/2024 CHARLI LEIGHANN [facility] [address] [place] [address] 09/11/2024 CHARLI LEIGHANN [facility] [address] [place] [address] 11/15/2024 CHARLI LEIGHANN Vitamin D deficiency E55.9 ; Hypothyroidism, unspecified E03.9 ; Hyperlipidemia, unspecified hyperlipidemia type E78.5 ; Adult general medical exam Z00.00 and Submandibular gland swelling R60.[address] [facility] [address] [place] [address] 11/27/2024 MAHIJOSE RICARDO [facility] [address] [place] [address] 12/16/2024 GURPREET ZARCO [facility] [address] [address] 12/19/2024 GURPREET ZARCO [facility] [address] [place] [address] 12/19/2024 Susana Normoyle [facility] [address] [place] [address] 01/01/2025 GURPREET ZARCO Assessments Encounter Date Diagnosis (ICD Code) Assessment Notes Treatment Notes Treatment Clinical Notes Section Notes 06/25/2024 Encounter for genera l adult medical examination without abnormal findings (ICD-10 [...] Dictation was accomplished with the use of [employer]vex voice recognition software, which is prone to [...] Dictation was accomplished with the use of [employer] voice recognition software, which is prone to [...] Leiden and von Willebrand per her son's comb fixer. #Fasting: Patient states she fasts for 20 [...] is to receive a follow-up through [facility] of her thyroid nodules. #Palpable lymph nodes: [...] Dictation was accomplished with the use of Devex voice recognition software, which is prone to medical misidentifications and grammatical errors. This are unintentional and the practitioner does try to identify and correct these, but some could still be present. Please do not hesitate to contact practitioner for clarification. 08/28/2024 Obesity (BMI 30-39.9 ) (ICD-10 - E66.9) Petty is a pleasant 73-year-old female with a past medical history of osteopenia, hypothyroidism, retinal telangiectasias, cataract extraction, fecal smearing and rosacea who presents to the office today for a f/u. #Genetic testing: Patient requesting factor V Leiden and von Willebrand per her son's comb fixer. #Fasting: Patient states she fasts for 20 [...] is to receive a follow-up through [facility] of her thyroid nodules. #Palpable lymph nodes: [...] Dictation was accomplished with the use of Devex voice recognition software, which is prone to [...] Leiden and von Willebrand per her son's comb fixer....Fac tor V Leiden and von Willebrand factor activity [...] is to receive a follow-up through [facility] of her thyroid nodules. #Submandibular gland [...] Dictation was accomplished with the use of Devex voice recognition software, which is prone to medical misidentifications and grammatical errors. This are unintentional and the practitioner does try to identify and correct these, but some could still be present. Please do not hesitate to contact practitioner for clarification. 09/25/2024 Obesity (BMI 30-39.9 ) (ICD-10 - E66.9) Petty is a pleasant [...] Leiden and von Willebrand per her son's comb fixer....Fac tor V Leiden and von Willebrand factor activity [...] is to receive a follow-up through [facility] of her thyroid nodules. #Submandibular gland prominence: [...] Dictation was accomplished with the use of Devex voice recognition software, which is prone to medical misidentifications and grammatical errors. This are unintentional and the practitioner does try to identify and correct these, but some could still be present. Please do not hesitate to contact practitioner for clarification. 11/15/2024 Vitamin D deficiency (ICD-10 - E55.9) 12/19/2024 Inflammation of metacarpophalangeal (MCP) joint (ICD-10 - M19.049) Petty is a 74-year-old female with past medical history significant for gout who presents for urgent visit due to right thumb pain, erythema, and edema beginning yesterday 12/18/2024. She reports yesterday she had difficulty with range of motion due to pain and stiffness, and associated tingling in the fingers. She is taking Advil with significant relief. She states symptoms have improved today compared to yesterday. On exam, right CMP joint with mild erythema, edema, and warmth to palpation. Erythema extends to MCP joint and over thenar emesis of hand, does not extend to wrist. Range of motion with thumb flexion, extension, and opposition, and range of motion with wrist flexion and extension is full without pain. No tenderness to palpation over CMC joint or MCP joint. No open wounds visible. Differential includes cellulitis, tenosynovitis, gout, unlikely septic joint given no fever, no pain today, ROM is full, erythema has not expanded. Plan for Keflex 500 mg 4 times daily for 5 days and doxycycline 100 mg twice daily for 5 days. Plan for CBC, uric acid, ESR and CRP, and x-ray of the hand. Will follow-up early next week for reevaluation. Advised patient to report to the ER if she develops fever, significant worsening pain, difficulty with range of motion. Routine labs ordered today as well. All questions have been answered to patient's satisfaction. Patient verbalized understanding of diagnosis and treatments explained. Advised to call sooner prior to next visit it any questions/concerns arise. Case discussed with collaborating physician Yves Zarco who reviewed the assessment and plan. Chart, medications, labs, vital signs reviewed. Dictation was accomplished with the use of Devex voice recognition software, which is prone to medical misidentifications and grammatical errors. This are unintentional and the practitioner does try to identify and correct these, but some could still be present. Please do not hesitate to contact practitioner for clarification. 12/19/2024 Inflammation of metacarpophalangeal (MCP) joint (ICD-10 - M19.049) Petty is a 74-year-old female with past medical history significant for gout who presents for urgent visit due to right thumb pain, erythema, and edema beginning yesterday 12/18/2024. She reports yesterday she had difficulty with range of motion due to pain and stiffness, and associated tingling in the fingers. She is taking Advil with significant relief. She states symptoms have improved today compared to yesterday. On exam, right CMP joint with mild erythema, edema, and warmth to palpation. Erythema extends to MCP joint and over thenar emesis of hand, does not extend to wrist. Range of motion with thumb flexion, extension, and opposition, and range of motion with wrist flexion and extension is full without pain. No tenderness to palpation over CMC joint or MCP joint. No open wounds visible. Differential includes cellulitis, tenosynovitis, gout, unlikely septic joint given no fever, no pain today, ROM is full, erythema has not expanded. Plan for Keflex 500 mg 4 times daily for 5 days and doxycycline 100 mg twice daily for 5 days. Plan for CBC, uric acid, ESR and CRP, and x-ray of the hand. Will follow-up early next week for reevaluation. Advised patient to report to the ER if she develops fever, significant worsening pain, difficulty with range of motion. Routine labs ordered today as well. All questions have been answered to patient's satisfaction. Patient verbalized understanding of diagnosis and treatments explained. Advised to call sooner prior to next visit it any questions/concerns arise. Case discussed with collaborating physician Yves Zarco who reviewed the assessment and plan. Chart, medications, labs, vital signs reviewed. Dictation was accomplished with the use of Devex voice recognition software, which is prone to medical misidentifications and grammatical errors. This are unintentional and the practitioner does try to identify and correct these, but some could still be present. Please do not hesitate to contact practitioner for clarification. 12/26/2024 Hypothyroidism, unspecified (ICD-10 - E03.9) Petty is a pleasant 74-year-old female with a past medical history of osteopenia, hypothyroidism, retinal telangiectasias, cataract extraction, fecal smearing and rosacea who presents to the office today for a f/u. #Right hand infection: Finishing up on cephalexin and doxycycline that was prescribed by Susana Ovalles PA-C #Carpal tunnel: Completed in August 2024 that revealed carpal tunnel syndrome in patient's right hand. [facility] referral was placed. #Genetic testing: Patient requesting factor V Leiden and von Willebrand per her son's comb fixer....Fac tor V Leiden and von Willebrand factor activity [...] is to receive a follow-up through [facility] of her thyroid nodules. #Submandibular gland prominence: [...] additional scan or palpable differences upon physical exam... Patient states that her repeat ultrasound was yesterday on 12/25/2024 #Palpitations: Holter monitor revealed abnormal rhythms including [...] Dictation was accomplished with the use of Devex voice recognition software, which is prone to medical misidentifications and grammatical errors. This are unintentional and the practitioner does try to identify and correct these, but some could still be present. Please do not hesitate to contact practitioner for clarification. 12/26/2024 Palpitations (ICD-10 - R00.2) Petty is a pleasant 74-year-old female with a past medical history of osteopenia, hypothyroidism, retinal telangiectasias, cataract extraction, fecal smearing and rosacea who presents to the office today for a f/u. #Right hand infection: Finishing up on cephalexin and doxycycline that was prescribed by Susana Ovalles PA-C #Carpal tunnel: Completed in August 2024 that revealed carpal tunnel syndrome in patient's right hand. [facility] referral was placed. #Genetic testing: Patient requesting factor V Leiden and von Willebrand per her son's comb fixer....Fac tor V Leiden and von Willebrand factor activity [...] is to receive a follow-up through [facility] of her thyroid nodules. #Submandibular gland prominence: [...] additional scan or palpable differences upon physical exam... Patient states that her repeat ultrasound was yesterday on 12/25/2024 #Palpitations: Holter monitor revealed abnormal rhythms including [...] Dictation was accomplished with the use of Devex voice recognition software, which is prone to medical misidentifications and grammatical errors. This are unintentional and the practitioner does try to identify and correct these, but some could still be present. Please do not hesitate to contact practitioner for clarification. 12/19/2024 Cellulitis of right upper extremity (ICD-10 - L03.113) Petty is a 74-year-old female with past medical history significant for gout who presents for urgent visit due to right thumb pain, erythema, and edema beginning yesterday 12/18/2024. She reports yesterday she had difficulty with range of motion due to pain and stiffness, and associated tingling in the fingers. She is taking Advil with significant relief. She states symptoms have improved today compared to yesterday. On exam, right CMP joint with mild erythema, edema, and warmth to palpation. Erythema extends to MCP joint and over thenar emesis of hand, does not extend to wrist. Range of motion with thumb flexion, extension, and opposition, and range of motion with wrist flexion and extension is full without pain. No tenderness to palpation over CMC joint or MCP joint. No open wounds visible. Differential includes cellulitis, tenosynovitis, gout, unlikely septic joint given no fever, no pain today, ROM is full, erythema has not expanded. Plan for Keflex 500 mg 4 times daily for 5 days and doxycycline 100 mg twice daily for 5 days. Plan for CBC, uric acid, ESR and CRP, and x-ray of the hand. Will follow-up early next week for reevaluation. Advised patient to report to the ER if she develops fever, significant worsening pain, difficulty with range of motion. Routine labs ordered today as well. All questions have been answered to patient's satisfaction. Patient verbalized understanding of diagnosis and treatments explained. Advised to call sooner prior to next visit it any questions/concerns arise. Case discussed with collaborating physician Yves Zarco who reviewed the assessment and plan. Chart, medications, labs, vital signs reviewed. Dictation was accomplished with the use of Devex voice recognition software, which is prone to medical misidentifications and grammatical errors. This are unintentional and the practitioner does try to identify and correct these, but some could still be present. Please do not hesitate to contact practitioner for clarification. 12/26/2024 Vitamin D deficiency (ICD-10 - E55.9) Petty is a pleasant 74-year-old female with a past medical history of osteopenia, hypothyroidism, retinal telangiectasias, cataract extraction, fecal smearing and rosacea who presents to the office today for a f/u. #Right hand infection: Finishing up on cephalexin and doxycycline that was prescribed by Susana Ovalles PA-C #Carpal tunnel: Completed in August 2024 that revealed carpal tunnel syndrome in patient's right hand. [facility] referral was placed. #Genetic testing: Patient requesting factor V Leiden and von Willebrand per her son's comb fixer....Fac tor V Leiden and von Willebrand factor activity [...] is to receive a follow-up through [facility] of her thyroid nodules. #Submandibular gland prominence: [...] additional scan or palpable differences upon physical exam... Patient states that her repeat ultrasound was yesterday on 12/25/2024 #Palpitations: Holter monitor revealed abnormal rhythms including [...] Dictation was accomplished with the use of Devex voice recognition software, which is prone to medical misidentifications and grammatical errors. This are unintentional and the practitioner does try to identify and correct these, but some could still be present. Please do not hesitate to contact practitioner for clarification. 11/15/2024 Hypothyroidism, unspecified (ICD-10 - E03.9) 09/25/2024 [...] Leiden and von Willebrand per her son's comb fixer....Fac tor V Leiden and von Willebrand factor activity [...] is to receive a follow-up through [facility] of her thyroid nodules. #Submandibular gland prominence: [...] Dictation was accomplished with the use of Devex voice recognition software, which is prone to [...] Leiden and von Willebrand per her son's comb fixer. #Fasting: Patient states she fasts for 20 [...] is to receive a follow-up through [facility] of her thyroid nodules. #Palpable lymph nodes: [...] Dictation was accomplished with the use of Devex voice recognition software, which is prone to [...] Fall risk assessed Discussed healthcare proxy. Discussed [place] order for life sustaining treatment, end-of-life issues, [...] Dictation was accomplished with the use of Devex voice recognition software, which is prone to medical misidentifications and grammatical errors. This are unintentional and the practitioner does try to identify and correct these, but some could still be present. Please do not hesitate to contact practitioner for clarification. 06/25/2024 Obesity (BMI 30-39.9 ) (ICD-10 - E66.9) Petty is a pleasant [...] Fall risk assessed Discussed healthcare proxy. Discussed [place] order for life sustaining treatment, end-of-life issues, [...] Dictation was accomplished with the use of Devex voice recognition software, which is prone to [...] Leiden and von Willebrand per her son's comb fixer. #Fasting: Patient states she fasts for 20 [...] is to receive a follow-up through [facility] of her thyroid nodules. #Palpable lymph nodes: [...] Dictation was accomplished with the use of Devex voice recognition software, which is prone to [...] Leiden and von Willebrand per her son's comb fixer....Fac tor V Leiden and von Willebrand factor activity [...] is to receive a follow-up through [facility] of her thyroid nodules. #Submandibular gland prominence: [...] Dictation was accomplished with the use of Devex voice recognition software, which is prone to medical misidentifications and grammatical errors. This are unintentional and the practitioner does try to identify and correct these, but some could still be present. Please do not hesitate to contact practitioner for clarification. 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 She reports yesterday she had difficulty with range of motion due to pain and stiffness, and associated tingling in the fingers. She is taking Advil with significant relief. She states symptoms have improved today compared to yesterday. On exam, right CMP joint with mild erythema, edema, and warmth to palpation. Erythema extends to MCP joint and over thenar emesis of hand, does not extend to wrist. Range of motion with thumb flexion, extension, and opposition, and range of motion with wrist flexion and extension is full without pain. No tenderness to palpation over CMC joint or MCP joint. No open wounds visible. Differential includes cellulitis, tenosynovitis, gout, unlikely septic joint given no fever, no pain today, ROM is full, erythema has not expanded. Plan for Keflex 500 mg 4 times daily for 5 days and doxycycline 100 mg twice daily for 5 days. Plan for CBC, uric acid, ESR and CRP, and x-ray of the hand. Will follow-up early next week for reevaluation. Advised patient to report to the ER if she develops fever, significant worsening pain, difficulty with range of motion. Routine labs ordered today as well. All questions have been answered to patient's satisfaction. Patient verbalized understanding of diagnosis and treatments explained. Advised to call sooner prior to next visit it any questions/concerns arise. Case discussed with collaborating physician Yves Zarco who reviewed the assessment and plan. Chart, medications, labs, vital signs reviewed. Dictation was accomplished with the use of Devex voice recognition software, which is prone to medical misidentifications and grammatical errors. This are unintentional and the practitioner does try to identify and correct these, but some could still be present. Please do not hesitate to contact practitioner for clarification. 12/26/2024 Rosacea (ICD-10 - L71.9) Petty is a pleasant 74-year-old female with a past medical history of osteopenia, hypothyroidism, retinal telangiectasias, cataract extraction, fecal smearing and rosacea who presents to the office today for a f/u. #Right hand infection: Finishing up on cephalexin and doxycycline that was prescribed by Susana Ovalles PA-C #Carpal tunnel: Completed in August 2024 that revealed carpal tunnel syndrome in patient's right hand. [facility] referral was placed. #Genetic testing: Patient requesting factor V Leiden and von Willebrand per her son's comb fixer....Fac tor V Leiden and von Willebrand factor activity [...] is to receive a follow-up through [facility] of her thyroid nodules. #Submandibular gland prominence: [...] additional scan or palpable differences upon physical exam... Patient states that her repeat ultrasound was yesterday on 12/25/2024 #Palpitations: Holter monitor revealed abnormal rhythms including [...] Dictation was accomplished with the use of Devex voice recognition software, which is prone to medical misidentifications and grammatical errors. This are unintentional and the practitioner does try to identify and correct these, but some could still be present. Please do not hesitate to contact practitioner for clarification. 12/26/2024 Headache, unspecifie d (ICD-10 - R51.9) Petty is a pleasant 74-year-old female with a past medical history of osteopenia, hypothyroidism, retinal telangiectasias, cataract extraction, fecal smearing and rosacea who presents to the office today for a f/u. #Right hand infection: Finishing up on cephalexin and doxycycline that was prescribed by Susana Ovalles PA-C #Carpal tunnel: Completed in August 2024 that revealed carpal tunnel syndrome in patient's right hand. [facility] referral was placed. #Genetic testing: Patient requesting factor V Leiden and von Willebrand per her son's comb fixer....Fac tor V Leiden and von Willebrand factor activity [...] is to receive a follow-up through [facility] of her thyroid nodules. #Submandibular gland prominence: [...] additional scan or palpable differences upon physical exam... Patient states that her repeat ultrasound was yesterday on 12/25/2024 #Palpitations: Holter monitor revealed abnormal rhythms including [...] Dictation was accomplished with the use of Devex voice recognition software, which is prone to medical misidentifications and grammatical errors. This are unintentional and the practitioner does try to identify and correct these, but some could still be present. Please do not hesitate to contact practitioner for clarification. 11/15/2024 Adult general medica l exam (ICD-10 - Z00.00) 12/19/2024 Encounter for examination of blood pressure without abnormal findings (ICD-10 - Z01.30) Petty is a 74-year-old female with past medical history significant for gout who presents for urgent visit due to right thumb pain, erythema, and edema beginning yesterday 12/18/2024. She reports yesterday she had difficulty with range of motion due to pain and stiffness, and associated tingling in the fingers. She is taking Advil with significant relief. She states symptoms have improved today compared to yesterday. On exam, right CMP joint with mild erythema, edema, and warmth to palpation. Erythema extends to MCP joint and over thenar emesis of hand, does not extend to wrist. Range of motion with thumb flexion, extension, and opposition, and range of motion with wrist flexion and extension is full without pain. No tenderness to palpation over CMC joint or MCP joint. No open wounds visible. Differential includes cellulitis, tenosynovitis, gout, unlikely septic joint given no fever, no pain today, ROM is full, erythema has not expanded. Plan for Keflex 500 mg 4 times daily for 5 days and doxycycline 100 mg twice daily for 5 days. Plan for CBC, uric acid, ESR and CRP, and x-ray of the hand. Will follow-up early next week for reevaluation. Advised patient to report to the ER if she develops fever, significant worsening pain, difficulty with range of motion. Routine labs ordered today as well. All questions have been answered to patient's satisfaction. Patient verbalized understanding of diagnosis and treatments explained. Advised to call sooner prior to next visit it any questions/concerns arise. Case discussed with collaborating physician Yves Zarco who reviewed the assessment and plan. Chart, medications, labs, vital signs reviewed. Dictation was accomplished with the use of Devex voice recognition software, which is prone to [...] Leiden and von Willebrand per her son's comb fixer....Fac tor V Leiden and von Willebrand factor activity [...] is to receive a follow-up through [facility] of her thyroid nodules. #Submandibular gland prominence: [...] Dictation was accomplished with the use of Devex voice recognition software, which is prone to [...] Leiden and von Willebrand per her son's comb fixer. #Fasting: Patient states she fasts for 20 [...] is to receive a follow-up through [facility] of her thyroid nodules. #Palpable lymph nodes: [...] Dictation was accomplished with the use of Devex voice recognition software, which is prone to [...] Fall risk assessed Discussed healthcare proxy. Discussed [place] order for life sustaining treatment, end-of-life issues, [...] Dictation was accomplished with the use of Devex voice recognition software, which is prone to [...] Fall risk assessed Discussed healthcare proxy. Discussed [place] order for life sustaining treatment, end-of-life issues, [...] Dictation was accomplished with the use of Devex voice recognition software, which is prone to medical misidentifications and grammatical errors. This are unintentional and the practitioner does try to identify and correct these, but some could still be present. Please do not hesitate to contact practitioner for clarification. 08/28/2024 Headache, unspecifie d (ICD-10 - R51.9) Petty is a pleasant 73-year-old female with a past medical history of osteopenia, hypothyroidism, retinal telangiectasias, cataract extraction, fecal smearing and rosacea who presents to the office today for a f/u. #Genetic testing: Patient requesting factor V Leiden and von Willebrand per her son's comb fixer. #Fasting: Patient states she fasts for 20 [...] is to receive a follow-up through [facility] of her thyroid nodules. #Palpable lymph nodes: [...] Dictation was accomplished with the use of Devex voice recognition software, which is prone to medical misidentifications and grammatical errors. This are unintentional and the practitioner does try to identify and correct these, but some could still be present. Please do not hesitate to contact practitioner for clarification. 11/15/2024 Submandibular gland swelling (ICD-10 - R60.0) 09/25/2024 Headache, unspecifie d (ICD-10 - R51.9) Petty is a pleasant [...] Leiden and von Willebrand per her son's comb fixer....Fac tor V Leiden and von Willebrand factor activity [...] is to receive a follow-up through [facility] of her thyroid nodules. #Submandibular gland prominence: [...] Dictation was accomplished with the use of Devex voice recognition software, which is prone to medical misidentifications and grammatical errors. This are unintentional and the practitioner does try to identify and correct these, but some could still be present. Please do not hesitate to contact practitioner for clarification. 12/26/2024 Submandibular gland swelling (ICD-10 - R60.0) Petty is a pleasant 74-year-old female with a past medical history of osteopenia, hypothyroidism, retinal telangiectasias, cataract extraction, fecal smearing and rosacea who presents to the office today for a f/u. #Right hand infection: Finishing up on cephalexin and doxycycline that was prescribed by Susana Ovalles PA-C #Carpal tunnel: Completed in August 2024 that revealed carpal tunnel syndrome in patient's right hand. [facility] referral was placed. #Genetic testing: Patient requesting factor V Leiden and von Willebrand per her son's comb fixer....Fac tor V Leiden and von Willebrand factor activity [...] is to receive a follow-up through [facility] of her thyroid nodules. #Submandibular gland prominence: [...] additional scan or palpable differences upon physical exam... Patient states that her repeat ultrasound was yesterday on 12/25/2024 #Palpitations: Holter monitor revealed abnormal rhythms including [...] Dictation was accomplished with the use of Devex voice recognition software, which is prone to medical misidentifications and grammatical errors. This are unintentional and the practitioner does try to identify and correct these, but some could still be present. Please do not hesitate to contact practitioner for clarification. 12/26/2024 Genetic testing (ICD-10 - Z13.79) Petty is a pleasant 74-year-old female with a past medical history of osteopenia, hypothyroidism, retinal telangiectasias, cataract extraction, fecal smearing and rosacea who presents to the office today for a f/u. #Right hand infection: Finishing up on cephalexin and doxycycline that was prescribed by Susana Ovalles PA-C #Carpal tunnel: Completed in August 2024 that revealed carpal tunnel syndrome in patient's right hand. [facility] referral was placed. #Genetic testing: Patient requesting factor V Leiden and von Willebrand per her son's comb fixer....Fac tor V Leiden and von Willebrand factor activity [...] is to receive a follow-up through [facility] of her thyroid nodules. #Submandibular gland prominence: [...] additional scan or palpable differences upon physical exam... Patient states that her repeat ultrasound was yesterday on 12/25/2024 #Palpitations: Holter monitor revealed abnormal rhythms including [...] Dictation was accomplished with the use of Devex voice recognition software, which is prone to [...] Leiden and von Willebrand per her son's comb fixer....Fac tor V Leiden and von Willebrand factor activity [...] is to receive a follow-up through [facility] of her thyroid nodules. #Submandibular gland prominence: [...] Dictation was accomplished with the use of Devex voice recognition software, which is prone to [...] Leiden and von Willebrand per her son's comb fixer. #Fasting: Patient states she fasts for 20 [...] is to receive a follow-up through [facility] of her thyroid nodules. #Palpable lymph nodes: [...] Dictation was accomplished with the use of Devex voice recognition software, which is prone to [...] Fall risk assessed Discussed healthcare proxy. Discussed [place] order for life sustaining treatment, end-of-life issues, [...] Dictation was accomplished with the use of Devex voice recognition software, which is prone to [...] Fall risk assessed Discussed healthcare proxy. Discussed [place] order for life sustaining treatment, end-of-life issues, [...] Dictation was accomplished with the use of Devex voice recognition software, which is prone to [...] Leiden and von Willebrand per her son's comb fixer. #Fasting: Patient states she fasts for 20 [...] is to receive a follow-up through [facility] of her thyroid nodules. #Palpable lymph nodes: [...] Dictation was accomplished with the use of Devex voice recognition software, which is prone to [...] Leiden and von Willebrand per her son's comb fixer....Fac tor V Leiden and von Willebrand factor activity [...] is to receive a follow-up through [facility] of her thyroid nodules. #Submandibular gland prominence: [...] Dictation was accomplished with the use of Devex voice recognition software, which is prone to medical misidentifications and grammatical errors. This are unintentional and the practitioner does try to identify and correct these, but some could still be present. Please do not hesitate to contact practitioner for clarification. 12/26/2024 Encounter for examination of blood pressure without abnormal findings (ICD-10 - Z01.30) Petty is a pleasant 74-year-old female with a past medical history of osteopenia, hypothyroidism, retinal telangiectasias, cataract extraction, fecal smearing and rosacea who presents to the office today for a f/u. #Right hand infection: Finishing up on cephalexin and doxycycline that was prescribed by Susana Ovalles PA-C #Carpal tunnel: Completed in August 2024 that revealed carpal tunnel syndrome in patient's right hand. [facility] referral was placed. #Genetic testing: Patient requesting factor V Leiden and von Willebrand per her son's comb fixer....Fac tor V Leiden and von Willebrand factor activity [...] is to receive a follow-up through [facility] of her thyroid nodules. #Submandibular gland prominence: [...] additional scan or palpable differences upon physical exam... Patient states that her repeat ultrasound was yesterday on 12/25/2024 #Palpitations: Holter monitor revealed abnormal rhythms including [...] Dictation was accomplished with the use of Devex voice recognition software, which is prone to [...] Leiden and von Willebrand per her son's comb fixer....Fac tor V Leiden and von Willebrand factor activity [...] is to receive a follow-up through [facility] of her thyroid nodules. #Submandibular gland prominence: [...] Dictation was accomplished with the use of Devex voice recognition software, which is prone to [...] Fall risk assessed Discussed healthcare proxy. Discussed [place] order for life sustaining treatment, end-of-life issues, [...] Dictation was accomplished with the use of Devex voice recognition software, which is prone to [...] Leiden and von Willebrand per her son's comb fixer. #Fasting: Patient states she fasts for 20 [...] is to receive a follow-up through [facility] of her thyroid nodules. #Palpable lymph nodes: [...] Dictation was accomplished with the use of Devex voice recognition software, which is prone to medical misidentifications and grammatical errors. This are unintentional and the practitioner does try to identify and correct these, but some could still be present. Please do not hesitate to contact practitioner for clarification. 06/25/2024 Headache, unspecifie d (ICD-10 - R51.9) Petty is a pleasant [...] Dictation was accomplished with the use of Devex voice recognition software, which is prone to medical misidentifications and grammatical errors. This are unintentional and the practitioner does try to identify and correct these, but some could still be present. Please do not hesitate to contact practitioner for clarification. Plan Of Treatment Pending Test Test Name Order Date X ray : Hand, right 12/19/2024 Echocardiogram 10/26/2022 EMG/NCV ARMS 06/25/2024 MAMMOGRAM, SCREENING 06/25/2024 Bone Density 06/25/2024 Ultrasound : Carotid Doppler Bilateral 0 06/25/2024 URIC ACID 12/19/2024 VON WILLEBRAND FACTOR ACTIVITY Factor V Leiden Level 08/28/2024 VITAMIN B12 12/19/2024 CARDIO CRP- HIGH SENSITIVE 12/19/2024 ESR 12/19/2024 Cologuard 07/25/2024 LIPID PANEL, STANDARD 12/19/2024 LIPID PANEL, STANDARD 11/15/2024 LIPID PANEL, STANDARD 10/25/2023 LIPID PANEL, STANDARD 05/03/2023 COMPREHENSIVE METABOLIC PANEL 10/25/2023 COMPREHENSIVE METABOLIC PANEL 12/19/2024 COMPREHENSIVE METABOLIC PANEL 11/15/2024 CBC (INCLUDES DIFF/PLT) 11/15/2024 CBC (INCLUDES DIFF/PLT) 12/19/2024 CBC (INCLUDES DIFF/PLT) 10/25/2023 URINALYSIS, COMPLETE 12/19/2024 URINALYSIS, COMPLETE 11/15/2024 VITAMIN B12 11/15/2024 TSH 11/15/2024 TSH 12/19/2024 VITAMIN D,25-OH,TOTAL,IA 12/19/2024 VITAMIN D,25-OH,TOTAL,IA 05/03/2023 VITAMIN D,25-OH,TOTAL,IA 11/15/2024 US Soft Tissue Head Neck 11/15/2024 Soft Tissue Head Neck 08/28/2024 PPC [facility] Holter 08/28/2024 Insurance Providers Payer Name Payer Address Payer Phone Subscriber Number Group Number Insured Name Patient Relationship to Insured Coverage Start Date Coverage End Date [employer] Pref[employer] [address] [place] [phone] [id number] Petty Hair Self - patient is the [...]
--- OUTSIDE RECORDS SUMMARY | 2025-01-01 13:13 | XMS_ITS | Patient Health Record ---
Author Organization [facility] [place] Address [address] [place] [address] Support Name Relationship Address Phone [employer]HANNA [employer]IR Guarantor Unknown [phone] Reason For Referral No Information Plan Of Treatment No Information Insurance Providers Payer Name Payer Address Payer Phone Subscriber Number Group Number Insured Name Patient Relationship to Insured Coverage Start Date Coverage End Date [employer] Preferred [address] [place] [address] [id number] ZHANNA HAIR Self - patient is the insured
--- OUTSIDE RECORDS SUMMARY | 2025-01-01 13:13 | XMS_ITS | Clinical Summary ---
Author Organization [employer] [facility] Address [address] [place] [address] Care Team Providers Care Boiler Tender Name Role Phone Jaxon Crain MD Primary Care Provider [phone] Allergies Active Allergy Reactions Criticality Noted Date Comments Shellfish Allergy 07/27/2016 Medications Medication Sig Dispensed Refills Start Date End Date Status levothyroxine (SYNTHROID, LEVOXYL) tablet 50 mcg Take 50 mcg by mouth. 0 07/06/2018 Active Cincxsogeyf-Qkwyuujon-R it C-Mn (GLUCOSAMINE CHONDROITIN COMPLX) CAPS Take [...] age to complete this topic Care Teams Boiler Tender Relationship Specialty Start Date End Date Jaxon Crain MD [address] [place] [address] PCP - General Internal Medicine 02/12/19
== END 2025-01-01 11:06 | disposition home or self-care (01) ==
LOC: HO.HMGAL 11:03
PROVIDERS: PCP Internal Medicine; Visit Provider Registered Nurse Emergency
DX: J30.89 Other allergic rhinitis (principal)
CPT/HCPCS: 95117; 95165

== ENCOUNTER 2025-02-05 11:54 | Outpatient (AMB) | payer MEDICARE, SELFPAY | END 2025-02-05 11:55 | disposition home or self-care (01) | LOC: HO.HMGAL 11:54 | PROVIDERS: PCP Internal Medicine; Visit Provider Registered Nurse Emergency | DX: J30.89 Other allergic rhinitis (principal) | CPT/HCPCS: 95117; 95165 ==